=== PATIENT | female | born 1955 | race Caucasian/White ===

== ENCOUNTER 2017-03-11 22:43 | Emergency (ER) | payer MEDICARE, MEDICAID ==
[2013-06-24 10:59] VITALS: BMI 20.3
[~2017-03-11 22:43] MED LIST: ABILIFY10 MG PO; ADVAIR 250/501 DISK INH; COMBIVENT RESPIM4 GM INH; ESTRACE2 MG PO; KLONOPIN0.5 MG PO; NEURONTIN600 MG PO; NEXIUM40 MG PO; OGEN1.5 MG PO; SPIRIVA18 MCG INH; ZANAFLEX4 MG PO
[2017-03-11 23:31] LABS: BASOPHILS 0.2 % (0-2); EOSINOPHILS 2.6 % (0-7); HEMATOCRIT 37.2 % (36.0-48.0); HEMOGLOBIN 11.9 g/dL (12-16); IMMATURE GRANULOCYTES 0.2 % (0-5); LYMPHOCYTES 30.6 % (15-50); MCV 96.9 fL (80.0-100.0); MONOCYTES 8.5 % (2-11); NEUTROPHILS 57.9 % (40-80); PLATELET COUNT 127 10x3/uL (130-400); RBC 3.84 10x6/uL (4.00-5.40); RDW 14.4 % (11.5-14.5); WBC 5.8 10x3/uL (4.8-10.8)
[2017-03-11 23:44] LABS: ALBUMIN 2.9 g/dL (3.4-5.0); BILIRUBIN - TOTAL 0.56 mg/dL (0.2-1.3); CALCIUM 8.8 mg/dL (8.5-10.1); CARBON DIOXIDE 31.2 mmol/L (21.0-32.0); CREATININE - SERUM 1.1 mg/dL (0.6-1.3); POTASSIUM - SERUM 4.2 mmol/L (3.5-5.1); PROTEIN - SERUM 7.2 g/dL (6.4-8.2)
[2017-03-12 00:42] LABS: APPEARANCE TURBID (CLEAR); BACTERIA MANY /hpf (NONE SEEN); BILIRUBIN NEGATIVE (NEGATIVE); COLOR YELLOW (YELLOW); EPITHELIAL CELLS NSEEN /hpf (0-5); GLUCOSE NEGATIVE (NEGATIVE); KETONE NEGATIVE (NEGATIVE); LEUKOCYTE ESTERASE 2+ (NEGATIVE); NITRITE POSITIVE (NEGATIVE); PROTEIN TRACE mg/dL (NEGATIVE); RED CELLS - URINE 0-5 /hpf (0-5); SPECIFIC GRAVITY 1.005 (1.005-1.020); UROBILINOGEN NORMAL (NORMAL); WHITE CELLS - URINE 25-50 /hpf (0-5)
== END 2017-03-12 01:50 | disposition home or self-care (01) ==
LOC: D.ER 22:43
PROVIDERS: Emergency Medicine
DX: N39.0 Urinary tract infection, site not specified (principal); M54.16 Radiculopathy, lumbar region; M50.20 Other cervical disc displacement, unspecified cervical region; F32.9 Major depressive disorder, single episode, unspecified; F17.200 Nicotine dependence, unspecified, uncomplicated

== ENCOUNTER 2017-03-16 02:27 | Inpatient (IN) | payer MEDICARE, MEDICAID ==
[~2017-03-16] VITALS: Ht 175.3 cm; Wt 63.3 kg
--- NOTE | ~2017-03-16 | PN ---
PATIENT:ROBERTH MYERS MEDICAL RECORD: [id number] LOCATION:[facility] ADMISSION DATE: 03/16/17 PROGRESS NOTE DATE OF SERVICE: 03/20/2017 This is a summary of progress notes from 03/18/2017, 03/19/2017 and 03/20/2017. CHIEF COMPLAINT: Pain. SUBJECTIVE: Over the course of a 3 day weekend, the patient was complaining of abdominal pain. Her nasogastric tube came out. She initially refused to have it replaced. This morning, she elected to have it replaced. There was the aspiration of about 3.5-3.7 liters of feculent smelling liquid after the nasogastric tube had been replaced. She was having a lot of abdominal pain prior to replacement of the nasogastric tube and a lot of this has resolved. Her abdomen is still distended. It is tympanitic. There are multiple surgical scars present. The patient states that she has had a stoma in the past. Dr. Hartman has operated on her in the past as well. I asked if she would like to have Dr. Hartman as her primary surgeon during this hospitalization and she states that she will stay with Dr. Morfin. Palpation aggravates. Nothing alleviates. Symptoms are moderate intensity. It is crampy pain. This is a progress note addendum. For the typed portion of the progress note, please see the chart. This will include the past medical and surgical history, allergies, current medications as well as social history. REVIEW OF SYSTEMS: Positive for nausea, positive for abdominal pain, positive for dyspnea on exertion, positive for weakness, and positive for headache. Review of systems is negative other than as is described above. PHYSICAL EXAMINATION: GENERAL: The patient appears acutely ill. Also appears chronically ill. VITAL SIGNS: Reviewed. The entire physical examination was performed with the presence of a female nurse. HEENT: Head, bilateral temporal wasting. Ears are normal. NECK: Trachea is midline. CHEST: No intercostal retractions. PULMONARY: Mildly labored. No stridor. ABDOMEN: Mild diffuse tenderness, without peritonitis to percussion. This is generalized tenderness. There are multiple surgical scars present. EXTREMITIES: No peripheral cyanosis. INTEGUMENT: No rash, no ulcerations. PSYCHIATRIC: Anxious affect. NEUROLOGIC: Nonfocal, no lethargy. The patient answers questions appropriately, moves all extremities well. BACK: Mild thoracic kyphosis. LYMPHATIC: No lymphangitic streaking of the exposed extremities. IMPRESSION: Over the course of the weekend, the patient did better with the nasogastric tube than without a nasogastric tube. Her pain is now improved. I PROGRESS NOTE [id number] LOUIS,ROBERTH WADDELL have discussed this case in depth with Dr. Morfin. He is going to plan for diagnostic laparoscopy, adhesiolysis, possible exploratory laparotomy tomorrow. The risks, possible complications and alternatives to procedure were explained to the patient and her . They elect to proceed. TRANSINT:[id number] Voice Confirmation ID: [id number] DOCUMENT ID: [id number] SHAGUFTA BROOKE MD CC: [id number] DICTATION DATE: 03/20/171828 REGISTERED PUBLIC HEALTH NURSE: 03/21/17 0328 ADM IN [facility] [address] [id number]
[2017-03-16 03:47] LABS: BASOPHILS 0.2 % (0-2); EOSINOPHILS 1.4 % (0-7); HEMATOCRIT 42.6 % (36.0-48.0); HEMOGLOBIN 14.1 g/dL (12-16); IMMATURE GRANULOCYTES 0.5 % (0-5); LYMPHOCYTES 20.8 % (15-50); MCH 31.3 pg (26.0-34.0); MCHC 33.1 g/dL (31.0-37.0); MCV 94.5 fL (80.0-100.0); MEAN PLATELET VOLUME 9.5 fL (7.4-10.4); MONOCYTES 12.4 % (2-11); NEUTROPHILS 64.7 % (40-80); RBC 4.51 10x6/uL (4.00-5.40); RDW 14.5 % (11.5-14.5); WBC 9.5 10x3/uL (4.8-10.8)
[2017-03-16 03:48] LABS: PLATELET COUNT 230 10x3/uL (130-400)
[2017-03-16 04:01] LABS: ANION GAP 9.2 mmol/L (8-16); BILIRUBIN - TOTAL 0.87 mg/dL (0.2-1.3); CALCIUM 10.6 mg/dL (8.5-10.1); CARBON DIOXIDE 37.6 mmol/L (21.0-32.0); CREATININE - SERUM 1.4 mg/dL (0.6-1.3); MAGNESIUM - SERUM 1.6 mg/dL (1.8-2.4); POTASSIUM - SERUM 3.8 mmol/L (3.5-5.1); PROTEIN - SERUM 7.9 g/dL (6.4-8.2)
[2017-03-16 04:10] LABS: APPEARANCE HAZY (CLEAR); BILIRUBIN NEGATIVE (NEGATIVE); COLOR YELLOW (YELLOW); GLUCOSE NEGATIVE (NEGATIVE); KETONE NEGATIVE (NEGATIVE); LEUKOCYTE ESTERASE NEGATIVE (NEGATIVE); NITRITE NEGATIVE (NEGATIVE); PROTEIN NEGATIVE (NEGATIVE); SPECIFIC GRAVITY 1.025 (1.005-1.020); UROBILINOGEN NORMAL (NORMAL)
[2017-03-16 06:41] VITALS: BP 105/66; BMI 18.3
--- NOTE | 2017-03-16 07:20 | NUR ---
PT. SITTING UP IN CHAIR AT BEDSIDE. ALERT. COLOR PINK. TEMP 98.2(O). RESP-16 BPM, HR-78 BPM. PT HAS NO C/O AT THIS TIME.
[2017-03-16 07:50] VITALS: BP 104/54
--- NOTE | 2017-03-16 10:00 | NUR ---
PT LAYING IN BED AT THIS TIME. HAS NO SIGNS OF DISTRESS NOTED AT PERSENT TIME.
[2017-03-16 12:20] VITALS: BP 113/67
--- NOTE | 2017-03-16 12:30 | NUR ---
ROOM CHECK DONE. PT. LAYING IN BED WATCHING TV. HAS NO SIGNS OF DISTRESS NOTED AT THIS TIME.
--- NOTE | 2017-03-16 13:40 | NUR ---
LYING ON BACK WITH HEAD OF BED AT 35 DEGREES. CHECKED NG PLACEMENT. NO CHANGE IN PLACEMENT. STATES THAT SHE TRIED TO "BLOW HER NOSE" AND IT MIGHT HAVE MOVED. REMINDED PT TO TRY NOT TO BLOW HER NOSE. STATES UNDERSTANDING. STATES THAT HER ABDOMEN IS HURTING DOWN LOW. IS DUE FOR ROUNDS AND HAS BEEN MADE AWARE OF STATEMENT.
[2017-03-16] MEDS ORDERED: ELAVIL25 MG PO (13:52)
[2017-03-16] MEDS ORDERED: FLOMAX0.4 MG PO (13:54)
[2017-03-16] MEDS ORDERED: BENTYL10 MG PO (13:55)
[2017-03-16] MEDS ORDERED: SPIRIVA18 MCG INH (13:56)
[2017-03-16] MEDS ORDERED: BUSPIRONE HCL30 MG PO (13:58)
[2017-03-16] MEDS ORDERED: ZOFRAN4 MG PO (13:59)
[2017-03-16] MEDS ORDERED: ADVAIR 250/501 DISK INH (14:00)
[2017-03-16] MEDS ORDERED: METOPROLOL TART25 MG PO (14:02)
[2017-03-16] MEDS ORDERED: ESTRACE2 MG PO (14:03)
[2017-03-16] MEDS ORDERED: CYMBALTA60 MG PO (14:04)
[2017-03-16] MEDS ORDERED: DEXILANT60 MG PO (14:05)
[2017-03-16] MEDS ORDERED: VITAMIN D5000 UNIT PO (14:06)
[2017-03-16] MEDS ORDERED: HYDROCODONE-APA1 TAB PO (14:08)
[2017-03-16 14:52] VITALS: Ht 175.3 cm; Wt 63.3 kg
--- NOTE | 2017-03-16 16:01 | NUR ---
Patient Name: ROBERTH MYERS Admission Status: ER Accout number: [id number] Admission Date: 03-16-2017 : 1955 Admission Diagnosis: Attending: TODD Current LOS: 1 Anticipated DC Date: 03-20-2017 Planned Disposition: Primary Insurance: [facility] Discharge Planning Comments: CM met with patient and boyfriend, Gonsalo Ignacio, to assess discharge planning/needs. Patient and boyfriend stated discharge plan is to return home. States that her home environment is safe. Her discharge transportation is pending at this time secondary to patient being dependent on public transport ([employer] bus or [employer] bus), she did state that she may be able to call a friend. She denies any other discharge planning needs at this time, however; patient is requiring the use of oxygen during this stay and may require walk test prior to discharge. CM will continue to follow and assist as needed with discharge planning/needs. Rehanger: Ashley Art Is the patient Alert and Oriented? Yes * How many steps to enter\exit or inside your home? 0 * PCP Dr Baljinder Curtis, [place] * Pharmacy [facility]: [place] * Preadmission Environment Home Alone * ADLs Independent * Equipment None * List name and contact numbers for known caregivers / representatives who currently or will assist patient after discharge: nick Damian, * Community resources currently utilized None * Please name any agencies selected above. Use to have [facility] in the past for ADL help * Additional services required to return to the preadmission environment? No * Can the patient safely return to the preadmission environment? Yes * Has this patient been hospitalized within the prior 30 days at any hospital? No
--- NOTE | 2017-03-16 16:16 | NUR ---
C/O PAIN TO MID ABD AND LOWER BACK. IV PATENT TO LT FOREARM
[2017-03-16 16:40] VITALS: BP 109/62
--- NOTE | 2017-03-16 17:28 | NUR ---
PT RESTING WITH EYES CLOSED, RESPIRATIONS EASY AND UNLABORED. AWAKENS EASILLY WHEN SPOKEN TO. STATES THAT SHE IS "GOING TO GET SOME SLEEP FOR AWHILE". STATES NO FURTHER NEEDS AT THIS TIME. S/R UP X 2, BED IN LOWEST POSITION, CALL LIGHT AND PHONE WITHIN REACH.
--- NOTE | 2017-03-16 18:18 | NUR ---
RADIOLOGY BROUGHT PREPARED CONTRAST TO UNIT. HAVE GIVEN 140 ML AND PT HAS BEEN STATING SINCE 100 ML THAT SHE WAS VERY FULL. CALL IN TO RADIOLOGY FOR FURTHER INSTRUCTIONS. PT "I CANT TAKE ANY MORE OF THAT"
--- NOTE | 2017-03-16 19:15 | NUR ---
PT TO RADIOLOGY VIA
--- NOTE | 2017-03-16 19:29 | NUR ---
PT BACK TO ROOM FROM RADIOLOGY, RESP TO ROOM FOR TREATMENT
--- NOTE | 2017-03-16 19:51 | NUR ---
MAG GARCIA IVPB PER MD ORDERS, SEE EMAR
[2017-03-16 20:15] VITALS: BP 104/58
--- NOTE | 2017-03-16 20:15 | NUR ---
VSS. COMPLAINING OF ABD AND LOWER BACK PAIN. FELL ASLEEP AFTER COMPLAINT. EXPLAINED TO BF AT BEDSIDE I WILL CHECK ON MEDS. BF CONCERNED SHE HASNT ATE IN 3 DAYS EXPLAINED THAT THEY HAVE TO LET HER BOWEL REST IN ORDER TO CLEAR THE OBSTRUCTION OR WHATEVER IS CAUSING THE PAIN. EXPLAINED THAT THE NG TUBE IS TO KEEP ANYTHING FROM GOING DOWN AND THAT HER ELECTROLYTES ARE MONITORED VIA BLOOD WORK.
--- NOTE | 2017-03-16 20:58 | NUR ---
ASSESSMENT PER FLOW SHEET, IV IN LEFT AC INTACT WITH NO REDNESS OR EDEMA INFUSING D5LR AT 100 ML/HR, PT DENIES FLATUS AND NO BM, BETHEA CATH INTACT, DRAINING DARK YELLOW URINE, SCD'S NOTED NOT TO BE ON, SCD'S APPLIED AND WORKING PROPERLY, NGT OFF AT THIS TIME DUE TO ADM OF MEDS, PT INST TO TAKE MEDS WITH A SMALL SIP OF WATER, PT VERBALIZES UNDERSTANDING, PT DENIES NEEDS, EXTRA PILLOW PROVIDED TO S/O
--- NOTE | 2017-03-16 21:30 | NUR ---
PT RESTING WITH EYES CLOSED, RESP QUIET, NO DISTRESS NOTED, LEFT UNDISTURBED AT THIS TIME, S/O ASLEEP IN RECLINER
[2017-03-16 23:16] VITALS: BP 104/51
--- NOTE | 2017-03-16 23:16 | NUR ---
PT RESTING WITH EYES CLOSED, AROUSES TO SOFT VERBAL STIMULATION, VS OBTAINED, ADM REGLAN AND DILAUDID SIVP PER MD ORDERS, SEE EMAR, PT DENIES NEEDS, S/O ASLEEP IN RECLINER
--- NOTE | 2017-03-17 00:30 | NUR ---
PT RESTING WITH EYES CLOSED, RESP QUIET, NO DISTRESS NOTED, LEFT UNDISTURBED AT THIS TIME, S/O ASLEEP IN RECLINER
--- NOTE | 2017-03-17 01:45 | NUR ---
NURYS AGUILAR RN FROM ICU TO ROOM, TUBING CHANGED ON NGT
--- NOTE | 2017-03-17 02:00 | NUR ---
PT C/O ABD PAIN, INFORMED PT THAT I WAS TOO SOON FOR PAIN MED, PT VERBALIZES UNDERSTANDING, REPOSITIONED PT TO RIGHT SIDE WITH PILLOW BEHIND BACK, IN FROM OF ABD, AND BETWEEN KNEES, PT DENIES FURTHER NEEDS, S/O AT SIDE
[2017-03-17 04:10] VITALS: BP 110/60
--- NOTE | 2017-03-17 04:10 | NUR ---
PT RESTING WITH EYES CLOSED, AROUSES TO SOFT VERBAL STIMULATION, VS OBTAINED, I&O'S COLLECTED, SCD'S CONTINUE ON AND WORKING PROPERLY, NEW BG OF NS HUNG INFUSING VIA PUMP AT 125 ML/HR, I&O'S COLLECTED, ADM PAIN MED PER MD ORDERS, SEE EMAR, PT DENIES FURTHER NEEDS, S/O AT BEDSIDE
--- NOTE | 2017-03-17 05:01 | NUR ---
5MG/1ML REGLAN GIVEN SIVP PER ORDERS. MN AROUSES TO LIGHT VERBAL STIMULI. FAMILY SLEEPING ON BEDSIDE CHAIR. PT DENIES PAIN OR NEEDS AT THIS TIME.
--- NOTE | 2017-03-17 06:40 | NUR ---
PT RESTING WITH EYES CLOSED, RESP QUIET, NO DISTRESS NOTED, LEFT UNDISTURBED AT THIS TIME
--- NOTE | 2017-03-17 07:00 | NUR ---
SHIFT REPORT TO DAY SHIFT
[2017-03-17 07:30] VITALS: BP 95/54
--- NOTE | 2017-03-17 07:32 | NUR ---
PT LYING IN BED WITH IN CHAIR AT BEDSIDE. RESTING WITH EYES CLOSED. EVEN BUT SHALLOW RESPIRATIONS.ABDOMEN VISUALLY DISTENDED STATES THAT IT IS HURTING AND INDICATES LLQ. ASKS FOR ICE CHIPS BUT IS NPO.
[2017-03-17 08:12] LABS: BASOPHILS 0.2 % (0-2); EOSINOPHILS 1.9 % (0-7); HEMATOCRIT 35.4 % (36.0-48.0); HEMOGLOBIN 11.4 g/dL (12-16); IMMATURE GRANULOCYTES 0.4 % (0-5); LYMPHOCYTES 26.6 % (15-50); MCH 30.7 pg (26.0-34.0); MCHC 32.2 g/dL (31.0-37.0); MCV 95.4 fL (80.0-100.0); MEAN PLATELET VOLUME 9.4 fL (7.4-10.4); NEUTROPHILS 53.9 % (40-80); PLATELET COUNT 140 10x3/uL (130-400); RBC 3.71 10x6/uL (4.00-5.40); RDW 14.4 % (11.5-14.5); WBC 4.7 10x3/uL (4.8-10.8)
[2017-03-17 08:28] LABS: INR 0.94 (0.85-1.17); PROTIME 12.4 SECONDS (11.6-15.0)
[2017-03-17 08:43] LABS: ALBUMIN 2.3 g/dL (3.4-5.0); ANION GAP 5.9 mmol/L (8-16); BILIRUBIN - TOTAL 0.68 mg/dL (0.2-1.3); CALCIUM 8.4 mg/dL (8.5-10.1); CARBON DIOXIDE 34.6 mmol/L (21.0-32.0); MAGNESIUM - SERUM 1.6 mg/dL (1.8-2.4); PHOSPHOROUS 3.3 mg/dL (2.5-4.9); POTASSIUM - SERUM 3.5 mmol/L (3.5-5.1)
[2017-03-17 08:55] LABS: PROTEIN - SERUM 5.8 g/dL (6.4-8.2)
[2017-03-17 12:55] VITALS: BP 88/63
--- NOTE | 2017-03-17 12:55 | NUR ---
BP 78/31 TO 88/63. O2 SAT 88% ON 2 L/MIN NASAL CANNULA. PATIENT DROWSEY BUT ROUSES WITH VERBAL STIMULI. INSTRUCTED TO DEEP BREATH AND COUGH. REPOSITIONED. O2 SAT RISES TO 92 TO 93% AFTER 2 MIN OF DEEP BREATHING AND COUGHING. SPUTUM IS CLEAR TO PALE YELLOW AND THICK. UOP APPROX 30ML/HR. DR BROOKS CARAMEL MAKER BRINA NOTIFIED OF SAME AND REQUESTED MANUAL BP. SKIN WARM DRY AND PALE.
--- NOTE | 2017-03-17 13:00 | NUR ---
DR BROOKS AT BEDSIDE. SAID TO STOP METOPROLOL AND KLONOPIN, TO ADVANCE NGT 4CM INDICATED BY ABD XRAY TODAY AND TO INCREASE IVF TO 125ML/HR. IVF INCREASED TO 125ML/HR.
[2017-03-17 13:05] VITALS: BP 104/80
--- NOTE | 2017-03-17 13:16 | NUR ---
DR. BROOKS TO ROOM.
--- NOTE | 2017-03-17 13:25 | NUR ---
NGT ADVANCED 4 CM AND SECURED WITH NEW SECUREMENT DEVICE AFTER MASTISOL APPLIED TO NOSE. IMMEDIATE INCREASE IN NGT OUTPUT NOTED.
--- NOTE | 2017-03-17 13:30 | NUR ---
SURGEON DR MUÑOZ AT BEDSIDE. REQUESTED PATIENT GET OUT OF BED INTO CHAIR. PATIENT ASSISTED TO GET OUT OF BED INTO CHAIR. SPONGE BATH GIVEN. LINENS CHANGED. RHODA WELL THEN RETURNED TO BED AFTER 15 MIN PER PATIENT REQUEST STATING SHE FEELS BAD.
--- NOTE | 2017-03-17 16:10 | NUR ---
INITIAL DOSES TPN AND LIPIDS BEGUN
--- NOTE | 2017-03-17 16:59 | NUR ---
CONTACTED MLP HAYES CONNOR TO ASK IF BLOOD SUGARS NEEDED FOR PATIENT ON TPN; NO NEW ORDERS GIVEN STATING CLINIMIX NOT CONCENTRATED TPN SO BLOOD SUGARS NOT NEEDED.
--- NOTE | 2017-03-17 17:17 | NUR ---
NEUROTIN PROVIDED AVAILABLE. SWALLOWED WITHOUT DIFFICULTY. SUCTION TURNED OFF FOR ONE HOUR TO ALLOW FOR DIGESTION OF MEDICATION.
[2017-03-17 19:45] VITALS: BP 90/51
--- NOTE | 2017-03-17 20:00 | NUR ---
REC'D PT IN BED ON LEFT SIDE. NG TUBE LYING BESIDE PT. RESP EVEN AND UNLABORED. LUNGS CLEAR BILATERALLY. ABDOMEN DISTENDED. HYPOACTIVE BOWEL SOUNDS NOTED. BETHEA CATH IN PLACE DRAINING CLEAR YELLOW URINE. S/O AT BEDSIDE. BED LOW. CALL LIGHT IN REACH. PT AWAKENS WITH VERBAL STIMULI AND STATES SHE DOES NOT WANT TUBE REPLACED. INFORMED THAT DR. BROOKE WOULD BE NOTIFIED. SIDE RAILS UP X2. JENA KOO
--- NOTE | 2017-03-17 20:15 | NUR ---
DR. BROOKE NOTIFIED PT HAS PULLED OUT NG TUBE AND DOES NOT WANT IT REPLACED. STATED OK TO LEAVE OUT BUT KEEP PT NPO EXCEPT MEDS. FAMILY INFORMED. JENA KOO
--- NOTE | 2017-03-17 21:54 | NUR ---
PT C/O PAIN 06/01 TO ABDOMEN. DILAUDID 0.5MG ADMINISTERED SIVP. PM MEDICATIONS ADMINISTERED WITH SMALL SIP OF WATER. S/O PRESENT IN ROOM. DENIES FURTHER NEEDS AT THIS TIME. JENA KOO
--- NOTE | 2017-03-17 23:26 | NUR ---
REGLAN 5MG ADMINISTERED SIVP. PT RESTING WITH EYES CLOSED. AWAKENS EASILY WITH VERBAL STIMULI. PT REPORTS PAIN IS A LITTLE BETTER. JENA KOO
[2017-03-18 00:06] VITALS: BP 94/49
--- NOTE | 2017-03-18 01:02 | NUR ---
IV CANNULA OUT OF CURRENT SITE TO LAC. IV RESITED TO RIGHT FOREARM WITH 20G X2 ATTEMPTS. BLOOD RETURN NOTED AND FLUSHED WITH NS EASILY. CURRENT INFUSION OF CLINIMIX RESUMED AT 100CC/HR. PT DENIES NEEDS/PAIN AT THIS TIME. JENA KOO
--- NOTE | 2017-03-18 02:37 | NUR ---
NEW BAG OF CLINIMIX UP AT 100CC/HR TO RIGHT FOREARM. PT RESTING WITH EYES CLOSED ON HER LEFT SIDE. RESP EVEN AND UNLABORED. JENA KOO
[2017-03-18 04:10] VITALS: BP 136/89
[2017-03-18 06:49] LABS: BASOPHILS 0.2 % (0-2); EOSINOPHILS 0.2 % (0-7); HEMATOCRIT 33.9 % (36.0-48.0); HEMOGLOBIN 10.8 g/dL (12-16); LYMPHOCYTES 20.3 % (15-50); MCH 30.5 pg (26.0-34.0); MCHC 31.9 g/dL (31.0-37.0); MCV 95.8 fL (80.0-100.0); MEAN PLATELET VOLUME 9.7 fL (7.4-10.4); MONOCYTES 15.4 % (2-11); NEUTROPHILS 62.9 % (40-80); PLATELET COUNT 125 10x3/uL (130-400); RBC 3.54 10x6/uL (4.00-5.40); RDW 14.1 % (11.5-14.5)
[2017-03-18 07:08] LABS: ALBUMIN 2.2 g/dL (3.4-5.0); ALKALINE PHOSPHATASE 55 U/L (46-116); ALT (SGPT) 48 U/L (10-68); CALC OSMOLALITY 277 mosm/kg (275-300); CALCIUM 8.7 mg/dL (8.5-10.1); CARBON DIOXIDE 32.8 mmol/L (21.0-32.0); CHLORIDE - SERUM 100 mmol/L (98-107); CREATININE - SERUM 0.8 mg/dL (0.6-1.3); GLUCOSE 134 mg/dL (74-106); POTASSIUM - SERUM 3.8 mmol/L (3.5-5.1); SODIUM 137 mmol/L (136-145); UREA NITROGEN 17 mg/dL (7-18); eGFR NON AFRICAN AMERICAN 77 mL/min (90-120)
--- NOTE | 2017-03-18 07:30 | NUR ---
PATIENT IS RESTING QUIETLY WITH EYES CLOSED. MALE VISITOR ASLEEP IN THE BEDSIDE CHAIR.
--- NOTE | 2017-03-18 09:30 | NUR ---
PATIENT TOOK MEDICATIONS ORALLY WITH A DRINK OF WATER. SHE DENIES NAUSEA BUT C/O HER STOMACH ACHING. ORAL NORCO GIVEN. PATIENT IS HYPOTENSIVE. BOYFRIEND REMAINS AT THE BEDISDE. MONITORING.
[2017-03-18 10:10] VITALS: BP 93/50
--- NOTE | 2017-03-18 11:50 | NUR ---
PATIENT C/O UNRELIEVED ABDOMINAL PAIN. IV DILAUDID GIVEN.
--- NOTE | 2017-03-18 12:40 | NUR ---
PATIENT'S LINENS CHANGED WHILE SHE IS AMBULATING OUT IN THE HALLWAY WITH HER BOYFRIEND. SHE STATES THAT DILAUDID DID HELP HER PAIN CINSIDERSBLY, NOW RATING THE PAIN A 5. SHE IS AMBULATING WITHOUT EVIDENCE OR UNSTEADINESS. ENCOURAGED HER TO GO ON ANOTHER WALK LATER THIS AFTERNOON TO STIMUATE SOME BOWEL MOVEMENTS. PATIENT VERBALIZED UNDERSTANDING.
--- NOTE | 2017-03-18 13:40 | NUR ---
SECURITY CALLED TO CONY'S ROOM. HER SON HAS JUST ARRIVED AND HER BOYFRIENT IS ANGRY THAT HE IS HERE. THE BOYFRIEND WANTS THE SON TO LEAVE AND THEIR CONVERSATION BECAME LOUD. MERCYNBA STATES THAT SHE WANTS TO VISIT WITH HER SON AND FOR HIM TO THEN LEAVE SO THAT SHE CAN REST. INFORMED BOYFRIEND THAT HE WAS GOING TO HAVE TO WAIT IN THE HALLWAY UNTIL THE SON HAS VISITED. BOYFRIEND AGREED.
--- NOTE | 2017-03-18 14:01 | NUR ---
PATIENT VISITING IN WITH HER SON. HER BOYFRIEND IS OUT PACING IN THE HALLWAY. HE HAS GONE INTO HER ROOM SEVERAL TIMES FOR A SHORT PERIOD TO TALK A MINUTE THEN COMES BACK OUT. HIS BODY LANGUAGE STATED THAT HE IS VERY ANGRY. HE DENIES NEEDS.
--- NOTE | 2017-03-18 18:22 | NUR ---
PATIENT GIVEN PAIN MEDICATION FOR C/O ABDOMINAL PAIN THAT COMES IN WAVES AND SEEMS TO BE MOVING AROUND IN HER BELLY. SHE IS STILL NOT PASSING GAS THOUGH SHE DOES BELCH.
[2017-03-18 19:35] VITALS: BP 100/56
--- NOTE | 2017-03-18 19:35 | NUR ---
ASSESSMENT PER FLOW SHEET, VS OBTAINED, IV IN RIGHT FA INTACT WITH NO REDNESS OR EDEMA INFUSING VIA PUMP CLINIMIX AT 100ML/HR, PT REPORTS FLATUS, BETHEA CATH INTACT DRAINING DARK YELLOW URINE, PT INST ON AND VERBALIZES UNDERSTANDING TO USE CALL LIGHT IF NEEDING TO GET UP FOR BM, SCD'S ON AND WORKING PROPERLY, PT REQUESTED SINK LIGHT OFF, PT DENIES FURTHER NEEDS, S/O AT BEDSIDE
--- NOTE | 2017-03-18 20:09 | NUR ---
RESP IN ROOM FOR TREATMENT
--- NOTE | 2017-03-18 20:35 | NUR ---
PT RESTING, DENIES NEEDS, S/O REQUESTED AND PROVIDED CRACKERS
--- NOTE | 2017-03-18 21:24 | NUR ---
PT RESTING, AWAKE, ADM 2100 MEDS PO WITH SMALL SIP OF WATER PER MD ORDERS, SEE EMAR, PT DENIES NEEDS OR PAIN AT THIS TIME, S/O AT BEDSIDE
--- NOTE | 2017-03-18 22:04 | NUR ---
IV BEEPING, VTBI CHANGED, BAG STILL HAS ABOUT 70 MLS TO BE INFUSED, PT DENIES NEEDS, S/O ASLEEP IN RECLINER
--- NOTE | 2017-03-18 22:28 | NUR ---
PT MERCHANDISING LEAD LIGHT, PT C/O NAUSEA, ABD AND BACK PAIN, ADM REGLAN, ZOFRAN, AND DILAUDID SIVP PER MD ORDERS, SEE EMAR, PT DENIES FURTHER NEEDS, S/O ASLEEP IN RECLINER
[2017-03-18 23:10] VITALS: BP 111/67
--- NOTE | 2017-03-18 23:10 | NUR ---
IV BEEPING, SHOWS BATTERY LOW, MACHINE PLUGGED IN, VS OBTAINED, PT REPORTS "MY PAIN IS BETTER AND NO, I'M NOT FEELING NAUSEATED ANYMORE", PT DENIES NEEDS
--- NOTE | 2017-03-19 00:11 | NUR ---
PT AWAKE, DENIES NEEDS, REPORTS "PAIN IS STARTING TO COME BACK ALITTLE", INFORMED PT THAT I WILL ADM PAIN MED AGAIN WHEN DUE, PT VERBALIZES UNDERSTANDING, S/O ASLEEP IN RECLINER
--- NOTE | 2017-03-19 01:59 | NUR ---
PT AWAKE, C/O ABD PAIN, PT REQUESTED NORCO, ADM NORCO PO PER MD ORDERS, SEE EMAR
--- NOTE | 2017-03-19 02:30 | NUR ---
PT AWAKE, DENIES NEEDS AT THIS TIME, S/O ASLEEP IN RECLINER
--- NOTE | 2017-03-19 02:51 | NUR ---
RESP TO ROOM FOR TREATMENT, PT REFUSED TREATMENT, REPORTS VOMITING A LITTLE, THIS RN TO ROOM, PT VOMITED APPROX 50 CC OF GREEN BILE EMESIS, PT REPORTS FEELING A LITTLE BETTER, ANOTHER BLUE EMESIS BAG PROVIDED
[2017-03-19 04:30] VITALS: BP 111/61
--- NOTE | 2017-03-19 04:30 | NUR ---
PT AWAKE, ADM ZOFRAN AND REGAL SIVP PER MD ORDERS, SEE EMAR, PT VOMITED APPROX 20 CC OF GREEN BILE EMESIS, ANOTHER BLUE EMESIS BAG PROVIDED, PT STATES "HAHA, MY STOMACH IS GROWLING AFTER THAT", VS OBTAINED, I&O'S COLLECTED, PT DNEIES NEEDS, S/O ASLEEP IN RECLINER
--- NOTE | 2017-03-19 06:11 | NUR ---
PT RESTING WITH EYES CLOSED, RESP QUIET, NO DISTRESS NOTED, LEFT UNDISTURBED AT THIS TIME
[2017-03-19 07:41] LABS: BASOPHILS 0.2 % (0-2); EOSINOPHILS 1.5 % (0-7); HEMOGLOBIN 11.5 g/dL (12-16); IMMATURE GRANULOCYTES 0.6 % (0-5); LYMPHOCYTES 27.8 % (15-50); MCHC 31.9 g/dL (31.0-37.0); MEAN PLATELET VOLUME 9.4 fL (7.4-10.4); MONOCYTES 16.5 % (2-11); NEUTROPHILS 53.4 % (40-80); PLATELET COUNT 121 10x3/uL (130-400); RBC 3.71 10x6/uL (4.00-5.40); RDW 14.4 % (11.5-14.5)
[2017-03-19 07:42] LABS: WBC 5.2 10x3/uL (4.8-10.8)
[2017-03-19 07:53] LABS: ALBUMIN 2.3 g/dL (3.4-5.0); ALKALINE PHOSPHATASE 53 U/L (46-116); ALT (SGPT) 40 U/L (10-68); BILIRUBIN - TOTAL 0.34 mg/dL (0.2-1.3); CALC OSMOLALITY 276 mosm/kg (275-300); CALCIUM 8.9 mg/dL (8.5-10.1); CARBON DIOXIDE 31.5 mmol/L (21.0-32.0); CHLORIDE - SERUM 101 mmol/L (98-107); CREATININE - SERUM 0.7 mg/dL (0.6-1.3); GLUCOSE 121 mg/dL (74-106); POTASSIUM - SERUM 3.8 mmol/L (3.5-5.1); PROTEIN - SERUM 6.4 g/dL (6.4-8.2); SODIUM 136 mmol/L (136-145); eGFR NON AFRICAN AMERICAN 90 mL/min (90-120)
[2017-03-19 07:54] LABS: UREA NITROGEN 24 mg/dL (7-18)
--- NOTE | 2017-03-19 08:10 | NUR ---
PATIENT RESTING IN HER BED, EYES CLOSED, TURNED ONTO HER LEFT SIDE. SHE AWOKE EASILY. STATES THAT HER BELLY IS SORE AND THAT SHE 'S VOMITED A COUPLE OF TIMES DURING THE NIGHT. SHE IS CURRENTLY WITHOUT NAUSEA. SHE FEELS THAT SHE NEEDS TO BE TAKING HER DEXOLANT. SHE HAS BEEN ON THAT MEDICATION FOR YEARS. HER CLINIMAX IS INFUSING PER ORDERS TO [facility] RIGHT FA IV. HER O2 IS RUNNING AT 3LPM PER ME. URINE PATENT TO BETHEA CATHETER.
--- NOTE | 2017-03-19 08:30 | NUR ---
PATIENT OFF THE UNIT TO XRAY FOR A SMALL BOWEL FOLLOW THROUGH. LINENS CHANGED. BOYFRIEND GONE HOME. HOUSEKEEPING CALLED TO CLEAN HER ROOM AND DEODORIZE.
[2017-03-19 10:30] VITALS: BP 109/70
--- NOTE | 2017-03-19 10:40 | NUR ---
PATIENT RETURNED TO THE UNIT ACCOMPANIED BY JANA BRAY. HE STATES THAT SHE IS TO HAVE ANOTHER XRAY IN AN HOUR AND A HALF FOR THE SBFT. HE ALSO REPORTS THAT SHE VOMITED SOME OF THE CONTRAST WHILE IN HIS DEPARTMENT. CURRENTLY SHE IS RATING HER ABDOMINAL PAIN A 10/10. ORDERS RECEIVED TO CONTINUED THE DILAUDID 0.5MG Q4 HOURS LIKE SHE HAD IT PRESCRIBED BEFORE. SHE REQUESTS ICE CHIPS BUT STATES THAT SHE WOULD LIKELY THROW UP HER MEDICATIONS IF SHE TRIED TO DRINK THEM WITH WATER. SHE ASKS ABOUT HER DEXOLANT. EXPLAINED THAT SHE IS GETTING A PPI VIA IV. SHE VOICED UNDERSTANDING. BOYFRIEND AT THE BEDSIDE AND ATTENTIVE.
--- NOTE | 2017-03-19 11:30 | NUR ---
PATIENT CONTINUES TO HAVE ABDOMINAL DISCOMFORT DESPITE THE IV MEDICAITONS.
--- NOTE | 2017-03-19 11:50 | NUR ---
DISCUSSED PATIENT CARE WITH DR. BROOKS. ORDERS RECEIVED TO REINSERT THE NGT IF THE PATIENT BEGINS TO VOMIT AGAIN. WHEN ENTERING HER ROOM SHE WAS SPITTING INTO AN EMESIS BAG. INFORMED HER THAT WE NEEDED TO REINSERT THE NGT. SHE AGREED. WHILE GATHERING SUPPLIES, JANA INMAN ARRIVED TO TAKE AN IMAGE FOR THE SBFT THAT IS UNDER WAY. HE REQUESTED THAT I WAIT TO HOOK THE NGT TO SUCTION FOR NOW TO ALLOW THE CONTRAST TO CONTINUE WORKING ITS WAY DOWN. THE PATIENT FEELS THAT SHE IS VOMITING BECAUSE SHE DRANK THE CONTRAST IN THE FIRST PLACE. AWAITING CALL BACK FROM [facility] FOR INSTRUCTIONS. HE IS GOING TO CONFER WITH THE RADIOLOGIST.
--- NOTE | 2017-03-19 12:20 | NUR ---
CALL RECEIVED FROM KATARINA IN [facility]. HE STATES HTAT DR. PELAEZ WANTS AN XRAY IN 3 HOURS AND TO REFRAIN FROM THE NGT FOR NOW. EXPECT DR. BROOKS TO THE FLOOR BEFORE THEN. INFORMED PATIENT. SHE WANTS TO REST FOR NOW. SHE DENIES NAUSEA AT THIS TIME. C/O BELLY BLOAT HURTING.
--- NOTE | 2017-03-19 16:51 | NUR ---
call placed to xray. RADIOLOGIST WANTS TO HAVE ANOTHER FILM TAKEN IN 3 HOURS. THE CONTRAST STILL HASN'T MADE IT THROUGH THE SMALL BOWELS. PATIENT REMAINS NAUSEATED, VOMITED 150CC OF GREEN LIQUID EMESIS.
--- NOTE | 2017-03-19 17:59 | NUR ---
PATIENT GIVEN ZOFRAN FOR CONTINUED NAUSEA AND DILAUDID FOR C/O PAIN THAT SHE RATES A 9. HER HR IS 116, SINUS TACH PER TELEMETRY.
--- NOTE | 2017-03-19 18:08 | NUR ---
REPORTED THE PATIENT'S URINARY OP TO DR. BROOKS. NEW ORDERS RECEIVED TO ADD NS INFUSION AT 5050CC.
[2017-03-19 19:10] VITALS: BP 123/76
--- NOTE | 2017-03-19 19:10 | NUR ---
ASSESSMENT PER FLOW SHEET, VS OBTAINED, IV IN RIGHT FA INTACT WITH NO REDNESS OR EDEMA INFUSING VIA PUMP NS AT 50MLR/HR, CLINIMIX AT 100ML/HR, AND LIPIDS AT 31 ML/HR PER MD ORDERS, SEE EMAR, PT REPORTS FLATUS, NO BM THOUGH, BETHEA CATH INTACT DRAINING DARK YELLOW URINE, PT DENIES PAIN, REPORTS SLIGHT NAUSEA, POC DISCUSSED WITH PT, PT VERBALIZES UNDERSTANDING, SCD'S ON AND WORKING PROPERLY
--- NOTE | 2017-03-19 19:20 | NUR ---
DR BROOKE TO ROOM FOR EVALUATION, DR BROOKE WILL PUT ORDERS IN
--- NOTE | 2017-03-19 20:15 | NUR ---
PT RESTING, VOMITED 50 MLS OF YELLOWISH GREEN LIQUID EMESIS, PT STATES "I'VE DECIDED THAT I DON'T WANT THAT TUBE", TALKED TO PT ABOUT THE NECESSITY OF IT, BUT PT STILL REFUSES AT THIS TIME, ROOM CLEANED UP, TRASH REMOVED
--- NOTE | 2017-03-19 21:00 | NUR ---
NAUN FROM RADIOLOGY CALLED, REPORTS CONTRAST NOT MOVING, WILL CONTINUE STUDY IN AM OR CAN TERMINATE STUDY DEPENDING ON WHAT DR BROOKE WANTS, WILL DUE BETWEEN 6-7 AM AND THEN CAN READ STUDY AT THAT TIME, I INFORMED HIM THAT I WILL CONTACT DR BROOKE
--- NOTE | 2017-03-19 21:10 | NUR ---
DR MENDY HOOK
--- NOTE | 2017-03-19 21:15 | NUR ---
DR BROOKE CALLS UNIT, REPORT OF WHAT NAUN FROM RADIOLOGY SAID, ORDER TO CHANGE ZOFRAN FROM Q6H PRN TO Q4H PRN, PT'S REFUSAL TO HAVE NGT AT THIS TIME, ORDERS TO CHANGE ZOFRAN, CAN WAIT TILL AM TO CONTINUE STUDY, BUT IF PT CHANGES HER MIND ABOUT THE NGT, GO AHEAD AND INSERT IT AND DO A KUB IN AM, I INFORMED HIM THAT ONE WAS ALREADY ORDERED
--- NOTE | 2017-03-19 21:30 | NUR ---
EMPTIED 230 MLS OF YELLOWISH, GREENISH, BROWNISH LIQUIDY EMESIS FROM BASIN, INFORMED PT THAT I WILL ADM SAMMY, PT VERBALIZES UNDERSTANDING, S/O AT BEDSIDE
--- NOTE | 2017-03-19 21:44 | NUR ---
ADM CHRISTIANSON AND CELESTE DUFFY PER MD ORDERS, SEE EMAR, PT DENIES FURTHER NEEDS, SCD'S CONTINUE ON AND WORKING PROPERLY, S/O AT BEDSIDE
--- NOTE | 2017-03-19 22:26 | NUR ---
IV BEEPING, ADM REGLAN FLAKOP PER MD ORDERS, NEW BAG OF CLINIMIX HUNG IV INFUSING VIA PUMP AT 100ML/HR, EMPTIED 75 MLS OF BROWNISH LIQUIDY EMESIS FROM BASIN, ENC PT TO HAVE NGT PLACED, PT CONTINUES TO REFUSE, S/O AT BEDSIDE, DENIES NEEDS AT THIS TIME
[2017-03-20] VITALS: BP 123/72
--- NOTE | 2017-03-20 | NUR ---
PT AWAKE, VS OBTAINED, EMPTIED 75 MLS OF BROWNISH LIQUIDY EMESIS, PT REPORTS GETTING UP TO BR TO TRY AND HAVE A BM, NO SUCCESS, SCD'S PLACED BACK ON AND WORKING PROPERLY, CHANGED TOP SHEET AND BLANKET, PT PROVIDED CUP OF WATER TO WASH OUT MOUTH, PT STATES "THANK YOU, I NEEDED TO DO THIS", VS OBTAINED, PT DENIES FURTHER NEEDS, S/O IN HALLWAY
--- NOTE | 2017-03-20 01:03 | NUR ---
PT RESTING WITH EYES CLOSED, AROUSES TO SOFT VERBAL STIMULATION, LIPIDS FINISHED INFUSING, PORT FLUSHED WITH NO DIFFICULTY, EMPTIED 100 MLS OF BROWNISH LIQUIDY EMESIS FROM BASIN, PT CONTINUES TO REFUSE NGT, PT DENIES NEEDS AT THIS TIME, S/O ASLEEP IN RECLINER
--- NOTE | 2017-03-20 02:08 | NUR ---
PT'S BREATHING TREATMENT COMPLETE. RESPIRATORY OFF UNIT AT THIS TIME.
[2017-03-20 03:30] VITALS: BP 133/74
--- NOTE | 2017-03-20 03:30 | NUR ---
PT AWAKE, VS OBTAINED, PT REPORTS ABD PAIN, ENC NGT, PT AGREES, I&O'S COLLECTED, INFORMED PT THAT I WILL HAVE SOMEONE COME PLACE THE TUBE AND ADM PAIN AND NAUSEA MED, PT VERBALIZES UNDERSTANDING
--- NOTE | 2017-03-20 03:36 | NUR ---
TRISTEN ELIAS RN, SUPERINTENDENT HORTICULTURE NOTIFIED FOR NGT PLACEMENT
--- NOTE | 2017-03-20 03:40 | NUR ---
ADM DILAUDID AND ZOFRAN SIVP PER MD ORDERS, SEE EMAR
--- NOTE | 2017-03-20 04:00 | NUR ---
EMPTIED 400 MLS OF BROWNISH LIQUIDY EMESIS FROM BASIN, EKG LEADS REPLACED, CLEAN BEDDING APPLIED, SCD'S CONTINUE AND WORKING PROPERLY
--- NOTE | 2017-03-20 04:45 | NUR ---
SULEIMAN BURGOS RN, FROM ICU TO ROOM FOR NGT PLACEMENT, NGT IS AT LOW INTERMITTENT SUCTION, HE REPORTS THAT HE HAS ALREADY REPLACED THE FIRST CANISTER
--- NOTE | 2017-03-20 05:05 | NUR ---
SECOND CANISTER REPLACED
--- NOTE | 2017-03-20 05:19 | NUR ---
ADM CIERRA DUFFY PER MD ORDERS, SEE EMAR
--- NOTE | 2017-03-20 06:42 | NUR ---
LAB TO ROOM FOR AM BLOOD DRAW
--- NOTE | 2017-03-20 07:00 | NUR ---
CANISTER CHANGED OUT PER ALONSO AWAD, RN
--- NOTE | 2017-03-20 07:00 | NUR ---
SHIFT REPORT TO DAY SHIFT
[2017-03-20 07:32] LABS: BASOPHILS 0.1 % (0-2); EOSINOPHILS 1.1 % (0-7); HEMATOCRIT 40.5 % (36.0-48.0); IMMATURE GRANULOCYTES 0.8 % (0-5); LYMPHOCYTES 20.3 % (15-50); MCH 30.9 pg (26.0-34.0); MCHC 32.1 g/dL (31.0-37.0); MCV 96.2 fL (80.0-100.0); MEAN PLATELET VOLUME 9.3 fL (7.4-10.4); MONOCYTES 14.2 % (2-11); NEUTROPHILS 63.5 % (40-80); PLATELET COUNT 199 10x3/uL (130-400); RBC 4.21 10x6/uL (4.00-5.40); RDW 14.4 % (11.5-14.5); WBC 10.1 10x3/uL (4.8-10.8)
[2017-03-20 07:45] VITALS: BP 113/67
[2017-03-20 07:58] LABS: ALBUMIN 2.7 g/dL (3.4-5.0); ANION GAP 5.7 mmol/L (8-16); BILIRUBIN - TOTAL 0.5 mg/dL (0.2-1.3); CALCIUM 9.3 mg/dL (8.5-10.1); CARBON DIOXIDE 39.7 mmol/L (21.0-32.0); POTASSIUM - SERUM 3.4 mmol/L (3.5-5.1); PROTEIN - SERUM 7.3 g/dL (6.4-8.2)
[2017-03-20 08:00] LABS: CREATININE - SERUM 0.9 mg/dL (0.6-1.3)
--- NOTE | 2017-03-20 08:00 | NUR ---
PATIENT IS AWAKE AND ALERT THIS MORNING. VSS.
--- NOTE | 2017-03-20 10:10 | NUR ---
PATIENT REQUESTED ASSISTANCE GETTING OOB TO THE RESTROOM. SHE SAID THAT SHE IS FEELING SOME PRESSURE IN HER SUPRAPUBIC AREA AND WOULD LIKE TO PASS GAS OR HAVE A BM. CLAMPED HER NGT. WHILE OOB, WE WALKED ABOUT 250 FEET OUT INTO THE HALLWAY. HER GAIT IS STRAIGHT AND WITHOUT NOTED WEAKNESSES. SHE DID C/O BEING DIZZY WHEN WE STOPPED TO CHECK HER O2 SAT. IT WAS 90% ON ROOM AIR. WHEN BACK TO BED, IT WAS 86%. REPLACED O2 AT 3LPM AND IT TOOK A COUPLE OF MINUTES TO GET HER SAT >93%.
--- NOTE | 2017-03-20 10:30 | NUR ---
ORAL MEDICATIONS GIVEN. WILL LEAVE NGT CLAMPED FOR 30 MINUTES PER POLICY.
--- NOTE | 2017-03-20 11:25 | NUR ---
RECONNECTED THE SUCTION TO HER NGT. THERE IS 600CC IN THE CANISTER SO FAR.
--- NOTE | 2017-03-20 13:32 | NUR ---
PATIENT REPOSITIONED IN HER BED FOR COMFORT. SHE STATES THAT HER NGT IS PUTTING PRESSURE ON THE INSIDE OF HER NOSE. TRIED TO REPOSITION IT SOME. ASSISTED HER WITH SOME CHOLORASEPTIC SPRAY, HER THROAT IS HURTING HER ALSO. IVF ALL INFUSING PER ORDERS. CANISTER WITH 800CC SO FAR. CALL LIGHT IS WITHIN HER REACH. HER MALE ADJUNCT INSTRUCTOR HAS GONE AND SHE STATES THAT SHE IS GLAD FOR THE BREAK FROM HIS COMPANY.
[2017-03-20 13:36] VITALS: BP 104/60
--- NOTE | 2017-03-20 14:30 | NUR ---
PATIENT USED CALL LIGHT TO REQUEST A COLD WASHCLOTH. SHE IS PERSPIRING AND STATES THAT SHE IS HAVING A HOT FLASH. SHE HAS BEEN ON ESTROGEN SUPPLEMENT FOR 40 YEARS PER STATEMENT. NO OTHER COMPLAINTS. MONITORING.
--- NOTE | 2017-03-20 15:04 | NUR ---
PATEINT RESTING QUIETLY WITH DOOR AJAR. NO NEEDS NOTED.
--- NOTE | 2017-03-20 16:09 | NUR ---
DISCUSSED SURGERY EXPECTATIONS AT LENGTH WITH PATIENT AND HER CROP PICKER THEY WERE EXPLAINED TO THEM BY DR. BROOKE. HER SON FROM [place] CALLED (EUGENIO REEVES [phone]) AND ASKED A FEW QUESTIONS REGARDING EXPECTED RECVERY. EXPLAINED THAT RECOVERY COULD BE LENGTHY. HE REQUESTS WE CALL WITH ANY "[employer]". SHE HAS A SON HERE [place]. PAUL IS LIVING IN HER HOME. TA IS HER BOYFRIEND. WE DISCUSSED A LIVING WILL WITH HER. SHE WANTS HER SONS TO BE THE DICISION MAKERS FOR HER IF SHE CANNOT.
--- NOTE | 2017-03-20 16:15 | NUR ---
DR. CASH NOTIFIED OF CONSULT.
--- NOTE | 2017-03-20 18:43 | NUR ---
TRANSPORTED TO ROOM 211 VIA WHEELCHAIR WITH IVF INFUSING PER PUMP, O2 AT 3LPM PER NC. NGT SUCTION RESTARTED UPON ARRIVAL. BETHEA CATHETER PATENT TO BEDSIDE COLLECTION BAG. BRISA KOO GIVEN FULL REPORT. PATIENT WITHOUT STATED NEEDS.
--- NOTE | 2017-03-20 19:10 | NUR ---
ASSESSMENT COMPLETED, NO ACUTE DISTRESS NOTED, NGT TO LIT IN R NARE, IV TO R FA INFUSING, S/O AT BEDSIDE, SR'S UP, CL IN REACH, WILL MONITOR
[2017-03-20 20:00] VITALS: BP 120/63
--- NOTE | 2017-03-20 20:19 | NUR ---
PRN ZOFRAN GIVEN FOR C/O NAUSEA, PO MEDS HELD DUE TO NPO WITH NG TUBE AND NAUSEA, DENIES NEEDS, CL IN REACH
--- NOTE | 2017-03-20 21:06 | NUR ---
PRN DILAUDID GIVEN FOR C/O ABD PAIN, RHODA WELL, CL IN REACH
--- NOTE | 2017-03-20 23:12 | NUR ---
LYING IN BED, NO ACUTE DISTRESS NOTED, DENIES NEEDS AT THIS TIME, FALL PRECAUTIONS IN PLACE, S/O AT BEDSIDE, CL IN REACH
[2017-03-21] VITALS (10 sets, daily range): BP systolic 79–122; BP diastolic 37–74
[2017-03-21 05:19] LABS: BASOPHILS 0.1 % (0-2); EOSINOPHILS 1.3 % (0-7); HEMATOCRIT 38.4 % (36.0-48.0); HEMOGLOBIN 12.3 g/dL (12-16); IMMATURE GRANULOCYTES 0.9 % (0-5); LYMPHOCYTES 27.1 % (15-50); MCH 30.6 pg (26.0-34.0); MCV 95.5 fL (80.0-100.0); MEAN PLATELET VOLUME 8.9 fL (7.4-10.4); MONOCYTES 10.6 % (2-11); PLATELET COUNT 169 10x3/uL (130-400); RBC 4.02 10x6/uL (4.00-5.40); RDW 13.9 % (11.5-14.5); WBC 8.2 10x3/uL (4.8-10.8)
[2017-03-21 05:30] LABS: ALBUMIN 2.6 g/dL (3.4-5.0); ALKALINE PHOSPHATASE 62 U/L (46-116); ALT (SGPT) 50 U/L (10-68); CALC OSMOLALITY 271 mosm/kg (275-300); CALCIUM 9.1 mg/dL (8.5-10.1); CARBON DIOXIDE 37.1 mmol/L (21.0-32.0); CHLORIDE - SERUM 97 mmol/L (98-107); CREATININE - SERUM 0.8 mg/dL (0.6-1.3); GLUCOSE 103 mg/dL (74-106); MAGNESIUM - SERUM 1.7 mg/dL (1.8-2.4); POTASSIUM - SERUM 3.6 mmol/L (3.5-5.1); PROTEIN - SERUM 6.8 g/dL (6.4-8.2); SODIUM 134 mmol/L (136-145); UREA NITROGEN 24 mg/dL (7-18); eGFR NON AFRICAN AMERICAN 77 mL/min (90-120)
--- NOTE | 2017-03-21 07:15 | NUR ---
REPORT RECEIVED FROM CHEMICAL PROCESS EQUIPMENT OPERATOR NURSE. CALL LIGHT IN REACH.
--- NOTE | 2017-03-21 07:45 | NUR ---
ASSESSMENT COMPLETED. DILAUDID IVP PER C/O PAIN OF 9. SCDs APPLIED TO BLE. INCENTIVE SPIROMETER GIVEN TO PATIENT AND EXPLAINED USE. VERBALIZED UNDERSTANDING. SIGNIFICANT OTHER AT BEDSIDE. CALL LIGHT IN REACH. WILL CONTINUE WITH PLAN OF CARE.
--- NOTE | 2017-03-21 08:15 | NUR ---
PATIENT ALERT IN HIGH ANDRES POSITION WITH FAMILY AT BEDSIDE. NO SIGNS OF DISTRESS NOTED. SIDE RAILS UP X2. BED IN LOW POSITION. CALL LIGHT IN REACH.
--- NOTE | 2017-03-21 09:05 | NUR ---
PREOP MEDS ADMINISTERED PER ORDER. NGT CLAMPED.
--- NOTE | 2017-03-21 09:45 | NUR ---
TO OR VIA BED.
--- NOTE | 2017-03-21 11:49 | NUR ---
PATIENT IS LAYING IN BED, HOB 40 DEGREES. RESPIRATIONS ARE EVEN AND UNLABORED ON ROOM AIR. SPLINT TO FINGER INTACT. PATIENT'S FAMILY MEMBER AT BEDSIDE. BOTH DENY NEEDS. BED IN LOWEST POSITION, CALL LIGHT IN REACH. BED RAILS UP X'S 2.
--- NOTE | 2017-03-21 15:15 | NUR ---
PT BROUGHT TO ICU FROM SURGERY. HAS AN NG TUBE IN PLACE IN RIGHT NARE. AND O2 AT 2L VIA NC. IV IN THE RIGHT ARM SL AND A RIGHT IJ TL SL DRESSING TO ABD HAS SMALL AMOUNT OF BLOOD. C/O ABD PAIN. DEMEROL DIRECTOR ORACLE DATABASE INICIATED. EXPLAINED HOW TO USE DIRECTOR ORACLE DATABASE AND PT DEMOSTRATED KNOWLEDGE. ABD BINDER IN PLACE. ON TELEMETRY WITH SINUS TACHYCARDIA OF 124. SEE ASSESSMENT IN FLOW SHEET. SIGNIFICANT OTHER AT BED SED. STATUS UPDATED. NO FURTHER QUESTION.
--- NOTE | 2017-03-21 16:30 | NUR ---
450 CC EMPTIED FORM BETHEA CATH
--- NOTE | 2017-03-21 18:00 | NUR ---
ASIGNIFICANT OTHER AT BEDSIDE, STATUS UPDATED, VOICES NO NEEDS AT THIS TIME
--- NOTE | 2017-03-21 19:15 | NUR ---
Received patient resting in bed with eyes closed, assessment completed per flowsheet. Patient confused/disoriented to time/situation, calm and follows commands. Eyes PERRLA @ 4mm with brisk response, slcera is reddened. NGT R nare to LIWS, yellow/brown contents noted in collection cannister. S1/S2 noted with patient Sinus Tach on telemetry with HR 143, rythmic and regular. Breathing is shallow and unlabored on 3L via NC, lung sounds clear bilateral upper with diminished mid and lower lobes. Abdomen is round and firm with tenderness to palpation, bowel sounds hypoactive x4. Abdominal binder/midline incision noted, scant yellow drainage noted on dressing. Angeles secured in place, clear andreia urine noted in collection bag. Moderate weakness noted in all extermities with all pulses palpable, cap refill <3 sec. R IJ x3 lumen noted, patent with fluids infusing. Patient denies pain at this time, c/o feeling hot with patient afebrile. Denies other needs at this time, all VSS and will continue to monitor.
--- NOTE | 2017-03-21 19:43 | NUR ---
SPOKE WITH DR. CASH RE: HEART RATE 130'S -140'S, SINUS ARRHYTHMIA, STATES SHE IS COMPENSATING FOR HER LOW BP, NO INTERVENTION GIVEN AT THIS TIME
--- NOTE | 2017-03-21 23:00 | NUR ---
Reassessment completed per flowsheet, patient resting in bed with eyes closed. S1/S2 noted Sinus Tach on telemetry with HR 143, rhythmic and regular. Breathing is shallow and unlabored on 3L via NC, O2 sat 95%. Abdominal binder in place, no new drainage noted on dressing. Patient c/o nausea, PRN meds given and will reassess. Patient denies pain or other needs at this time, all VSS and will continue to monitor.
[2017-03-22] VITALS (23 sets, daily range): BP systolic 84–125; BP diastolic 31–90
--- NOTE | 2017-03-22 03:00 | NUR ---
Reassessment completed per flowsheet, patient resting in bed with eyes closed. S1/S2 noted Sinus Tach on telemetry with HR 129, rhythmic and regular. Breathing is shallow and unlabored on 3L via NC, O2 sat 94%. Midline incision dressing CDI, abdominal binder secured. Patient c/o pain 2/10 abdomen, repositioned and instructed on use of FIELD SERVICE ANALYST for pain mgmt. No further needs at this time, all VSS and will continue to monitor.
[2017-03-22 03:58] LABS: HEMATOCRIT 42.7 % (36.0-48.0); HEMOGLOBIN 14.2 g/dL (12-16); MCH 31.3 pg (26.0-34.0); MCHC 33.3 g/dL (31.0-37.0); MCV 94.1 fL (80.0-100.0); MEAN PLATELET VOLUME 9.3 fL (7.4-10.4); PLATELET COUNT 287 10x3/uL (130-400); RBC 4.54 10x6/uL (4.00-5.40); RDW 14.1 % (11.5-14.5); WBC 29.1 10x3/uL (4.8-10.8)
[2017-03-22 04:01] LABS: ANION GAP 8.7 mmol/L (8-16); CALCIUM 8.3 mg/dL (8.5-10.1); CARBON DIOXIDE 28.7 mmol/L (21.0-32.0); MAGNESIUM - SERUM 1.6 mg/dL (1.8-2.4); PHOSPHOROUS 3.6 mg/dL (2.5-4.9)
[2017-03-22 04:02] LABS: CREATININE - SERUM 1.7 mg/dL (0.6-1.3); POTASSIUM - SERUM 5.4 mmol/L (3.5-5.1)
[2017-03-22 04:52] LABS: EOSINOPHILS 1 % (0-7); LYMPHOCYTES 7 % (15-50); MONOCYTES 4 % (2-11); NEUTROPHILS 70 % (40-80); PLATELET ESTIMATE NORMAL
--- NOTE | 2017-03-22 07:00 | NUR ---
REC'D REPORT AND RESUMED CARE, SLEEPING,A ROUSABLE TO VERBAL STIMULI, , VSS, RIGHT NARE NGT TO LIWS WITH BROWNISH DRAINAGE TO TUBING, RIGHT IJTL WITH PROCALAMINE INFUSING AT 100 CC/HR, AND NS AT 100 CC/HR, BELLY BINDER IN PLACE WITH MIDLINE BORDERED GAUZE DRESSING IWTH SCANT BLOODY DRAINAGE, LOWER LEFT QUAUD WITH SYBIL BRUISING NOTED, FOELEY TO GRAVITY WITH JANICE DRAINAGE TO BAG, C/O PAIN 8/10 IN ABDOMEN, DEMEROL RETURNED TELEPHONE EQUIPMENT APPRAISER ENCOURAGED, SCD'S ON B/L, ASSESSMENT COMPLETED PER FLOWSHEET, CALL LIGHT IN REACH, VOICES NO OTHER NEEDS AT THIS TIME.
--- NOTE | 2017-03-22 08:35 | NUR ---
AM MEDS GIVEN PER MAR FLOWSHEET
--- NOTE | 2017-03-22 10:39 | NUR ---
NUTRITION MONITORING & EVAL CHART REVIEWED. REMAINS NPO. PROCALAMINE @ 100 CC/HR PROVIDING 580 KCAL, 72 GM PROTEIN PER DAY. 20% INTRALIPIDS/250 CC Q 48 HOURS PROVIDING ADDITIONAL 250 KCAL PER DAY FOR TOTAL 830 KCAL, [address] FOLLOWING
--- NOTE | 2017-03-22 10:47 | NUR ---
NS BOLUS GIVEN PER ORDERS. TOLERATING WELL.
--- NOTE | 2017-03-22 11:00 | NUR ---
RESTING WITH NO SIGNS OF DISTRESS, VSS, C/O PAIN 01/30, DEMEROL MOLD PRESSER IN USE, AND ENCOURAGED, VSS, REPOSITIONED TO LEFT SIDE WITH PILLOW PROPPED TO BACK AND HEELS FLOATED, CALL LIGHT IN REACH, NO NEEDS AT THIS TIME
[2017-03-22 13:09] LABS: BASOPHILS 0.1 % (0-2); EOSINOPHILS 0.2 % (0-7); HEMATOCRIT 36.6 % (36.0-48.0); IMMATURE GRANULOCYTES 0.8 % (0-5); LYMPHOCYTES 3.7 % (15-50); MCH 30.8 pg (26.0-34.0); MCHC 32.8 g/dL (31.0-37.0); MCV 93.8 fL (80.0-100.0); MEAN PLATELET VOLUME 8.9 fL (7.4-10.4); MONOCYTES 3.1 % (2-11); NEUTROPHILS 92.1 % (40-80); PLATELET COUNT 194 10x3/uL (130-400); RDW 14.2 % (11.5-14.5); WBC 24.9 10x3/uL (4.8-10.8)
[2017-03-22 13:23] LABS: ANION GAP 9.3 mmol/L (8-16); CALCIUM 7.7 mg/dL (8.5-10.1); CARBON DIOXIDE 25.3 mmol/L (21.0-32.0); POTASSIUM - SERUM 4.6 mmol/L (3.5-5.1)
[2017-03-22 13:24] LABS: CREATININE - SERUM 1.2 mg/dL (0.6-1.3)
--- NOTE | 2017-03-22 13:26 | NUR ---
PC TO PT DEPT. AWARE OF CONSULT, COMING IN LATER TODAY
--- NOTE | 2017-03-22 13:45 | NUR ---
PT AT BEDSIDE FOR EVAL, PATIENT UP TO AMBULATE WITHOUT DIFFICULTY, 120FT
--- NOTE | 2017-03-22 14:00 | NUR ---
UP IN CHAIR WATCHING TV, DENIES PAIN, VSS, CALL LIGHT IN REACH, VOICES NO NEEDS AT THIS TIME, LINEN CHANGE COMPLETED
--- NOTE | 2017-03-22 15:00 | NUR ---
CONTINUES TO SIT UP IN CHAIR, VSS, O2 VIA NC AT 3L, SAT 98%, RIGHT NARE NGT TO LIWS, WITH GREENISH DRAINAGE TO CANISTER, DENIES PAIN, DEMEROL ADZING AND BORING MACHINE OPERATOR IN USE, CALL LIGHT IN REACH, VOICES NO NEEDS AT THIS TIME
--- NOTE | 2017-03-22 17:52 | NUR ---
NS BOLUS #2 INITITATED @ 999ML/HR PER ORDER, PATIENT AWAKE AND ALERT, VSS, REPOSITIONED TO LEFT SIDE WITH PILLOW POPPED TO BACK AND HEELS FLOATED, CALL LIGHT IN REACH, VOICES NO OTHER NEEDS AT THIS TIME
--- NOTE | 2017-03-22 18:50 | NUR ---
1 LITER BOLUS COMPLETED
--- NOTE | 2017-03-22 19:00 | NUR ---
LAYING IN BED. ORIENTED TO TIME, PERSON, PLACE, AND SITUATION. S1S2 PRESENT. PERIPHERAL PULSES PALPABLE. LUNGS SOUNDS CLEAR EQUAL IN ALL LOBES. ABLE TO MOVE LOWER AND UPPER EXTREMITIES. TEACHING PROVIDED ON THE IMPORTANCE OF FREQUENT POSITIONING TO PREVENT SKIN ULCERS. R IJ CVL IN PLACE, PATENT, DRESSING ADHERED TO SKIN, CLEAN, AND DRY NO REDNESS, SWELLING, OR TENDERNESS NOTED. R ARM PIV IN PLACE SALINE LOCK, DRESSING ADHERED TO SKIN. SCD'S ON. NONSKID SOCKS IN PLACE. NG TUBE TO LOW INTERMITTENT SUCTION. SEE FLOWSHEET FOR FULL ASSESSMENT. BED IN LOWEST POSITION. CALL LIGHT WITHIN REACH. DENIES FURTHER NEEDS AT THIS TIME.
--- NOTE | 2017-03-22 21:00 | NUR ---
LAYING IN BED, HELPED WITH REPOSITIONING TO L SIDE FOR COMFORT. BED IN LOWEST POSITION. CALL LIGHT WITHIN REACH. DENIES FURTHER NEEDS AT THIS TIME.
--- NOTE | 2017-03-22 23:00 | NUR ---
CALLED FROM THE WAITING ROOM. UPDATE GIVEN. WILL CONT TO MONITOR.
[2017-03-23] VITALS (11 sets, daily range): BP systolic 79–107; BP diastolic 45–64
--- NOTE | 2017-03-23 01:00 | NUR ---
REPOSITIONED TO HER BACK FOR COMFORT. ORAL MOISTURIZER PROVIDED. DENIES FURTHER NEEDS AT THIS TIME. BED IN LOWEST POSITION. CALL LIGHT WITHIN REACH.
--- NOTE | 2017-03-23 03:00 | NUR ---
REPOSITIONED TO R SIDE FOR COMFORT. NO CHANGES NOTED. WILL CONTINUE TO MONITOR. CALL LIGHT WITHIN REACH. BED IN LOWEST POSITION.
[2017-03-23 03:44] LABS: BASOPHILS 0.1 % (0-2); EOSINOPHILS 1.1 % (0-7); LYMPHOCYTES 7.7 % (15-50); MCH 30.4 pg (26.0-34.0); MCHC 32.9 g/dL (31.0-37.0); MCV 92.6 fL (80.0-100.0); MONOCYTES 5.4 % (2-11); NEUTROPHILS 84.7 % (40-80); PLATELET COUNT 167 10x3/uL (130-400); RBC 3.12 10x6/uL (4.00-5.40); RDW 14.1 % (11.5-14.5)
[2017-03-23 03:48] LABS: HEMATOCRIT 28.9 % (36.0-48.0); HEMOGLOBIN 9.5 g/dL (12-16); WBC 17.8 10x3/uL (4.8-10.8)
[2017-03-23 03:59] LABS: ANION GAP 8.6 mmol/L (8-16); CALCIUM 7.8 mg/dL (8.5-10.1); CARBON DIOXIDE 25.4 mmol/L (21.0-32.0); CREATININE - SERUM 0.9 mg/dL (0.6-1.3); MAGNESIUM - SERUM 1.8 mg/dL (1.8-2.4)
[2017-03-23 04:04] LABS: PHOSPHOROUS 2.3 mg/dL (2.5-4.9)
--- NOTE | 2017-03-23 05:00 | NUR ---
LAYING ON L SIDE. NO CHANGES NOTED. WILL CONTINUE TO MONITOR.
--- NOTE | 2017-03-23 06:10 | NUR ---
AWAKE IN BED. IN ROOM. DENIES FURTHER NEEDS AT THIS TIME. CALL LIGHT WITHIN REACH. BED IN LOWEST POSITION. WILL CONTINUE TO MONITOR.
--- NOTE | 2017-03-23 07:00 | NUR ---
ASSESSMENT PER FLOWSHEET. VOICES NO CO AT TIME. NPO X ICE.
--- NOTE | 2017-03-23 08:00 | NUR ---
DR BARBER HERE OK TO TRANSFER TO FLOOR.
--- NOTE | 2017-03-23 10:00 | NUR ---
PT HERE UP AMBULATING WITH PT. GAIT STEADY. NO CO AT TIME.
--- NOTE | 2017-03-23 11:00 | NUR ---
RECEIVED FROM ICU VIA WC. [place] TO Steve CHU TO BROOKE. SMALL AMOUNT OF GREENISH DRAINAGE NOTED. DRESSING TO MIDLINE ABDOMEN C/D/I. ABDOMINAL BINDER IN USE. SCDS IN USE TO BILAT LEGS. BETHEA PATENT DRAINING YELLOW URINE. HOME CONNECT LPN DEMEROL 10-10-200 IN USE FOR PAIN CONTROL. FRIEND AT BEDSIDE. DENIES ANY NEEDS AT PRESENT.
--- NOTE | 2017-03-23 11:00 | NUR ---
TRANSFER TO [facility] REPORT GIVEN TO LILIA KOO.
--- NOTE | 2017-03-23 11:45 | NUR ---
SAFETY ASSISTANT SHOWING ST 116 PER TECH.
--- NOTE | 2017-03-23 13:00 | NUR ---
DENIES ANY NEEDS AT PRESENT.
--- NOTE | 2017-03-23 16:00 | NUR ---
TRIED TO EXPLAIN TO PATIENT AND FRIEND THAT DIET CAN'T BE STARTED WHILE NG TUBE IS IN USE. DOESN'T SEEM TO COMPREHEND ABOUT THE NEED TO PASS GAS BEFORE HAVING NG TUBE REMOVED AND STARTING DIET.
--- NOTE | 2017-03-23 18:30 | NUR ---
RESTING QUIETLY IN BED. FAMILY AT BEDSIDE.
--- NOTE | 2017-03-23 19:20 | NUR ---
ASSESSMENT COMPLETED, SIG OTHER IN ROOM, NGT TO LIT IN R NARE, R IJ INFUSING WITH EASE, ABD BINDER IN PLACE, BETHEA DRAINING TO GRAVITY, PT ANXIOUS WILL TREAT PER ORDERS, FALL PRECAUTIONS IN PLACE, CL IN REACH
--- NOTE | 2017-03-23 20:40 | NUR ---
MEDS GIVEN PER MAR, RHODA WELL, NO DISTRESS NOTED, FALL PRECAUTIONS IN PLACE, CL IN REACH
--- NOTE | 2017-03-23 22:10 | NUR ---
PT PULLED NG TUBE OUT, VERY ANXIOUS, ATTEMPTING TO GET OUT OF BED, ATIVAN GIVEN PER MAR WITH NO RESULTS, CONTACTED
--- NOTE | 2017-03-23 22:41 | NUR ---
ORDERS RECIEVED FROM EMMA RUTH APN FOR HALDOL 2MG IM NOW AND Q4 PRN, ALSO INSTRUCTED TO CONTACT DR BARBER TO INFORM HIM OF THE NG BEING PULLED OUT.
--- NOTE | 2017-03-23 22:50 | NUR ---
SERVICE PLUMBER CONTACTED TO PULL ORDERED HALDOL
--- NOTE | 2017-03-23 23:03 | NUR ---
HALDOL GIVEN PER ORDERS, PT RHODA WELL, CONTINUES TO BE AGITATED, STAFF ALTERNATING AND STAYING IN ROOM AT ALL TIMES, FALL PRECAUTIONS IN PLACE, CL IN REACH
--- NOTE | 2017-03-23 23:33 | NUR ---
DR BARBER ANSWERED PAGE, INFORMED OF PT CONDITION AND THAT NG TUBE WAS PULLED OUT BY PATIENT. ALSO INFORMED OF ORDER FOR HALDOL GIVEN BY EMMA, DR BARBER SAID TO LEAVE THE NG TUBE OUT AND FOLLOW THE ORDERS GIVEN BY EMMA
[2017-03-24] VITALS (11 sets, daily range): BP systolic 97–128; BP diastolic 48–68
--- NOTE | 2017-03-24 00:05 | NUR ---
PT CONTINUES TO BE AGITATED, ATTEMPTING TO CLIMB OUT OF BED AND PULL AT IJ IV, UNABLE TO REORIENT, THREATENING TO STAB STAFF, STATES " IM GETTING OUT OF HERE IF I HAVE TO STAB ALL OF YALL", 2 TO 3 STAFF MEMEBERS IN ROOM AT ALL TIMES, PAGED
--- NOTE | 2017-03-24 00:17 | NUR ---
ORDERS RECIEVED FROM EMMA RUTH FOR 3MG HALDOL NOW AND CHANGE PRN ORDER FROM 2MG Q4 TO 5MG Q4 AND TRANSFER PATIENT TO ICU, CORRECTIONAL CLASSIFICATION COUNSELOR CONTACTED AND INFORMED OF ORDER
--- NOTE | 2017-03-24 00:32 | NUR ---
PRN 3 MG HALDOL GIVEN IN L THIGH PER ORDERS, RHODA WELL, WILL CONTINUE TO MONITOR, FALL PRECAUTIONS IN PLACE, S/O OTHER AND STAFF IN ROOM, CL IN REACH
--- NOTE | 2017-03-24 00:48 | NUR ---
CASEY FROM ICU REFUSES PATIENT, STATES "I DON'T HAVE THE STAFF", INFORMED HER THAT I DID NOT GIVE THE ORDER, SHE STATED "FINE I WILL CALL EMMA" AND WALKED AWAY, TRIPLE AIR VALVE TESTER CONTACTED, WAS TOLD " IF SHE WON'T TAKE THEM THERE ISN'T ANYTHING I CAN DO", AWAITING INSTRUCTIONS, STAFF IN ROOM WITH PATIENT, FALL PRECAUTIONS IN PLACE.
--- NOTE | 2017-03-24 00:50 | NUR ---
REQUESTED STAFF FOR ONE ON ONE SUPERVISION, AWAITING RESPONSE, FALL PRECAUTIONS IN PLACE, STAFF IN ROOM, WILL CONTINUE TO MONITOR
--- NOTE | 2017-03-24 01:25 | NUR ---
PT RESTING WITH EYES CLOSED FOR PERIODS OF 1 OR 2 MINS THEN RETURNS TO BEING AGITATED AND ATTEMPTING TO CLIMB OUT OF BED AND PULL IJ LINE, SPOUSE AND STAFF IN ROOM
--- NOTE | 2017-03-24 02:13 | NUR ---
HOUSE SUPERVISER SITTING IN CHAIR MONITORING PATIENT SO FLOOR STAFF CAN ATTEND TO OTHER PATIENTS
--- NOTE | 2017-03-24 03:07 | NUR ---
PT CONTINUES TO BE CONFUSED WITH HALLUCINATIONS, SOMEWHAT CALMER NOW WITH INTERMITTANT PERIODS OF ATTEMPTING TO GET OUT OF BED AND TUG ON BETHEA, S/O AT BEDSIDE, STAFF CONTINUES TO MONITOR
--- NOTE | 2017-03-24 04:10 | NUR ---
PT ATTEMPTING TO PULL IJ OUT AND GET OUT OF BED, LAB PERSONNEL AND SN STOPPED PT FROM GETTING UP, IRRIGATIONIST DESIGNER CONTACTED TO PULL NEXT PRN DOSE OF HALDOL, FALL PRECAUTIONS IN PLACE, STAFF IN ROOM
--- NOTE | 2017-03-24 04:40 | NUR ---
PRN DIANA MARSHALL PER MAR IN R THIGH FOR EXTREME AGITATION, RHODA WELL, STAFF IN ROOM
--- NOTE | 2017-03-24 04:40 | NUR ---
PRN HALDOL GIVEN PER ORDERS FOR EXTREME AGITATION, RHODA WELL, STAFF IN ROOM
[2017-03-24 04:43] LABS: BASOPHILS 0 % (0-2); HEMATOCRIT 24.6 % (36.0-48.0); HEMOGLOBIN 8.3 g/dL (12-16); IMMATURE GRANULOCYTES 0.6 % (0-5); LYMPHOCYTES 8.4 % (15-50); MCH 31.2 pg (26.0-34.0); MCHC 33.7 g/dL (31.0-37.0); MCV 92.5 fL (80.0-100.0); MEAN PLATELET VOLUME 8.7 fL (7.4-10.4); MONOCYTES 5.7 % (2-11); NEUTROPHILS 84.3 % (40-80); PLATELET COUNT 141 10x3/uL (130-400); RBC 2.66 10x6/uL (4.00-5.40); RDW 14.4 % (11.5-14.5)
[2017-03-24 04:44] LABS: WBC 8.6 10x3/uL (4.8-10.8)
[2017-03-24 04:57] LABS: CALC OSMOLALITY 271 mosm/kg (275-300); CALCIUM 8.1 mg/dL (8.5-10.1); CARBON DIOXIDE 25.7 mmol/L (21.0-32.0); CHLORIDE - SERUM 104 mmol/L (98-107); CREATININE - SERUM 0.8 mg/dL (0.6-1.3); GLUCOSE 88 mg/dL (74-106); MAGNESIUM - SERUM 1.6 mg/dL (1.8-2.4); PHOSPHOROUS 2.7 mg/dL (2.5-4.9); POTASSIUM - SERUM 3.7 mmol/L (3.5-5.1); SODIUM 135 mmol/L (136-145); eGFR NON AFRICAN AMERICAN 77 mL/min (90-120)
[2017-03-24 04:58] LABS: UREA NITROGEN 20 mg/dL (7-18)
--- NOTE | 2017-03-24 07:54 | NUR ---
AWAKE AND ALERT. RESPONDS APPROPRIATELY TO QUESTIONS. LUNGS ARE CLEAR BILATERALLY, NO COUGH NOTED. SKIN IS INTACT WITHOUT REDNESS EXCEPT INCISIONS TO ABDOMEN WHICH HAVE DRY INTACT DRESSINGS IN PLACE. ABDOMINAL BINDER IN PLACE WELL. BETHEA PATENT WITH CLEAR YELLOW URINE. IV TO RIGHT FOREARM IS PATENT WITHOUT REDNESS. RIGHT SUBCLAVIAN IS PATENT WITHOUT REDNESS AT INSERTION SITE. SCD'S IN PLACE. SIGNIFICANT OTHER AT BEDSIDE. DENIES NEEDS.
--- NOTE | 2017-03-24 09:00 | NUR ---
VERY CONFUSED AT THIS TIME. ASSISTED UP TO BR WITH 2 PERSON ASSIST. NO BM AT THIS TIME. AMBULATED TO CHAIR ON FAR SIDE OF BED WITH ONE PERSON ASSIST. O2 75% AFTER ACTIVITY WITHOUT O2. UP TO 98% ON 2L NC. SIGNIFICANT OTHER IN ROOM. ENCOURAGED TO STAY IN CHAIR. EVETTE MAT IN PLACE.
--- NOTE | 2017-03-24 11:04 | NUR ---
RESTING QUIETLY IN CHAIR. DENIES NEEDS. CONTINUES CONFUSED.
--- NOTE | 2017-03-24 12:30 | NUR ---
UP TO BR WITH ONE PERSON ASSIST. O2 OFF AGAIN. SAT AT 80%. UP TO 98% WITH O2 AT 2L NC. REPOSTIONED IN BED FOR COMFORT.
--- NOTE | 2017-03-24 12:59 | OP ---
PATIENT NAME: ROBERTH MYERS MEDICAL RECORD: [id number] :57 LOCATION:[id number] ADMISSION DATE:03/16/17 SURGEON: LUCIANO BARBER MD DATE OF OPERATION: 03/21/2017 PREOPERATIVE DIAGNOSES: 1. Small-bowel obstruction. 2. Chronic obstructive pulmonary disease. 3. Hepatitis B. 4. Atrial fibrillation. 5. Asthma. 6. Anxiety/depression. POSTOPERATIVE DIAGNOSES: 1. Small-bowel obstruction. 2. Chronic obstructive pulmonary disease. 3. Hepatitis B. 4. Atrial fibrillation. 5. Asthma. 6. Anxiety/depression. PROCEDURES: 1. Exploratory laparotomy with lysis of adhesions. 2. Small bowel resection times 2. 3. Abdominal scar revision. SURGEON: Luciano Barber MD REPORT OF PROCEDURE: The patient's abdomen was prepped and draped in sterile fashion. A Veress needle was inserted in the left upper quadrant, had some difficulty with placing the Veress needle in the abdomen, but eventually, I was able to inspect the abdomen and inserted a 5-mm trocar in the left side of the abdomen. Once in the left abdomen, I was never able to fully see around the abdominal cavity very well, eventually just elected to open up the abdominal cavity. Once I did this, I performed a midline incision. Using electrocautery, I got through the subcutaneous tissues and fascia and entered the abdomen. The patient had some dense adhesions of the omentum to the anterior abdominal wall. Once we got through this adhesion, we were able to get down to the small bowel, which was markedly dilated. We followed the small bowel down to the pelvis. There was noted to be some dense bands of adhesions which were causing the obstruction. As we released the adhesions, the small bowel was noted to be perforated in 2 sites. One of the sites appeared to be chronically adhesed and scar down and the other one appeared to be a traction injury. We removed these 2 small segments of small bowel and I performed [id number] anastomosis with 75 blue load AMENA staplers. The enterotomies were closed with a 30 blue load TA staplers and then oversewed the staple lines with Lemberted 3-0 silks. Both of these anastomoses were large and patent. We irrigated out the abdomen thoroughly with normal saline to remove any of the succus material which was present. The remainder of the small bowel was then inspected from ligament of Treitz to the terminal ileum. We were able to free up the remainder of the adhesions and could see the stomach and it appeared that a Veress needle actually penetrated the stomach at some point. There was some bruising around the antrum of the stomach, but on the posterior aspect of the stomach, there was no sign of any penetration. I went ahead and just did a [id number] with 3-0 silk over this portion of the stomach. I did not physically see a OPERATIVE REPORT [id number] [facility] perforation in that area, but the bruising was concerning. The patient's left colon and down to the sigmoid were all inspected. The patient had a previous colostomy and Shagufta's procedure, so there was a lot of scarring in this area, but I was eventually able to see all of the colon and saw no sign of any injury to this bowel. There was a large amount of stool present within the colon itself. At this point, the bowel was placed back into the abdominal cavity. We irrigated out the abdomen thoroughly with normal saline. The midline fascia was closed with running #1 looped PDS times 2. We then undermined the skin in both directions and removed a large section of the scar in the mid abdomen from a previous wound closure done by secondary intent. We reapproximated the subcutaneous tissues with interrupted 3-0 Vicryls and the skin was closed with elvin. COMPLICATIONS: None. CONDITION: Stable. ANESTHESIA: General endotracheal and local. BLOOD LOSS: 100 mL. TRANSINT:[id number] Voice Confirmation ID: [id number] DOCUMENT ID: [id number] LUCIANO BARBER MD at 1259 CC: ALBERTO BROOKS MD [id number] DICTATION DATE: 03/21/17 1337 [place] TENDER: 03/21/17 2142 ADM IN [facility] [address] [place] [address]
--- NOTE | 2017-03-24 13:30 | NUR ---
RESTING QUIETLY WITH EYES CLOSED. SIGNIFICANT OTHER ALSO AT REST. NO NEEDS. NOTED. O2 IN PLACE.
--- NOTE | 2017-03-24 14:30 | NUR ---
AWAKE AND CONFUSED. PULLED PIV OUT. ATTEMPTED TO PULL JUGULAR OUT WELL. STAFF ASSISTED UP TO BR WITH NO RESULTS. CONTINUES TO PULL O2 OFF. ENCOURAGED TO LEAVE IN PLACE. BEING BELIGERANT AT TIMES. REPORT CALLED SAEID PEOPLES RN IN ICU. TRANSFERRED VIA BED TO ROOM 2206. SIGNIFICANT OTHER AWARE OF TRANSFER AND WENT WITH PATIENT.
--- NOTE | 2017-03-24 14:56 | NUR ---
RECIEVED REPORT ON PT FROM [place], WAITING TO RECIEVE PT TO UNIT FROM [facility].
--- NOTE | 2017-03-24 15:09 | NUR ---
PT ARRIVED TO UNIT AT THIS TIME. IS NOTED CONFUSED AND PULLING AT LINES. REORIENTATION PROVIDED. PT CONTINUED TO PULL AT LINES AND TUBING. BILATERAL SOFT WRIST RESTRAINTS PLACED AT THIS TIME FOR PT SAFETY. WILL CONTINUE PLAN OF CARE.
--- NOTE | 2017-03-24 16:14 | NUR ---
NOTED MAGNESIUM LEVEL LOW, PT IS ON ELECTROLYTE PROTOCOL, REPLACEMENT ADMIN PER PROTOCOL GUIDELINES. WILL CONTINUE PLAN OF CARE.
--- NOTE | 2017-03-24 16:48 | NUR ---
BOYFRIEND AT BEDSIDE AT THIS TIME. UPDATE GIVEN. NO ACUTE DISTRESS NOTED. WILL CONTINUE PLAN OF CARE.
--- NOTE | 2017-03-24 18:56 | NUR ---
PT AWAKE IN BED AT THIS TIME. BOYFRIEND AT BEDSIDE. PT NOTED CONFUSED. REORIENTATION PROVIDED. NO ACUTE DISTRESS NOTED. WILL CONTINUE PLAN OF CARE.
--- NOTE | 2017-03-24 19:00 | NUR ---
1900: Pt rec'd resting HOB 30 degrees with eyes closed. Open to verbal. Pt confused not oriented to time or place. Verbal reorientation only partially successful at this time. Pt follows commands and moves x4 extrem vs gravity w/o difficulty. Breathing 022LNC. Encouraged DBC. S1S2 regular SR on CM. Right IJ CVL with NS, Procal, and Demerol ACADEMIC ASSOCIATE infusing. ABD with large midline incision seen. Incision is open to air and no s/s of bleeding, oozing, or redness at site. ABD binder is in place. BS absent x4 with auscultation. Angeles to gravity with >30 cc/hr yellow UOP.
--- NOTE | 2017-03-24 20:00 | NUR ---
2000: Pt at bedside. Update provided and verbalized understanding.
--- NOTE | 2017-03-24 21:00 | NUR ---
2100: Pt repositoned for comfort. Pt remains in bilateral soft wrist restraints. Pt remains confused, but follows commands and assists in turning. No change in RESP/CV/NV status.
--- NOTE | 2017-03-24 23:00 | NUR ---
2300: Pt assists with turning and follows commands. 1 limb vs 2 limb restraint at this time to assess continued need for restraint. Pt remains confused not oriented to time. Verbal reorientation provided.
[2017-03-25] VITALS (16 sets, daily range): BP systolic 83–127; BP diastolic 47–80
--- NOTE | 2017-03-25 01:30 | NUR ---
0130: Pt resting in bed with eyes closed. Pt remains SR on CM. No change in RESP/CV/NV status. No change IVF/UOP.
--- NOTE | 2017-03-25 02:08 | NUR ---
RECIEVED REPORT FROM NURYS Medeiros RN. RESUMING CARE OF PATIENT.
--- NOTE | 2017-03-25 03:00 | NUR ---
REASSESSMENT COMPLETE, PLEASE SEE FLOW SHEETS FOR DETAILS. ALERT AND ORIENTED TO PLACE AND SELF BUT NOT TO SITUATION AND TIME. COMPLAINS OF PAIN IN ABDOMEN PINCHING - STOMACH AREA. REPOSITIONED FOR COMFORT TO RIGHT SIDE. ON 2L NC, SPO2 97%. VSS ATT, BED LOW AND LOCKED, CALL LIGHT IN REACH. WILL CONTINUE POC.
--- NOTE | 2017-03-25 03:15 | NUR ---
PT ASKED TO HAVE HER HANDS FREE, ASKED HER IF SHE WAS GOING TO PULL AT ANYTHING, SHE SAID SHE WOULD NOT. PATIENT ORIENTED TO SELF AND PLACE ONLY, BUT FOLLOWS DIRECTIONS ACCORDINGLY. STARTED USING HER CALL LIGHT MORE WELL. UNTIED RESTRAINTS ATT, BED LOW AND LOCKED WITH CALL LIGHT IN REACH. WILL CONTINUE TO MONITOR.
[2017-03-25 04:29] LABS: BASOPHILS 0 % (0-2); EOSINOPHILS 1.2 % (0-7); HEMATOCRIT 25.4 % (36.0-48.0); HEMOGLOBIN 8.4 g/dL (12-16); IMMATURE GRANULOCYTES 1.2 % (0-5); LYMPHOCYTES 16.6 % (15-50); MCH 30.7 pg (26.0-34.0); MCHC 33.1 g/dL (31.0-37.0); MCV 92.7 fL (80.0-100.0); MEAN PLATELET VOLUME 8.5 fL (7.4-10.4); MONOCYTES 10.2 % (2-11); NEUTROPHILS 70.8 % (40-80); PLATELET COUNT 154 10x3/uL (130-400); RBC 2.74 10x6/uL (4.00-5.40); RDW 14.6 % (11.5-14.5)
[2017-03-25 04:40] LABS: CALC OSMOLALITY 277 mosm/kg (275-300); CALCIUM 7.8 mg/dL (8.5-10.1); CARBON DIOXIDE 24.7 mmol/L (21.0-32.0); CHLORIDE - SERUM 106 mmol/L (98-107); CREATININE - SERUM 0.6 mg/dL (0.6-1.3); GLUCOSE 101 mg/dL (74-106); POTASSIUM - SERUM 3.7 mmol/L (3.5-5.1); SODIUM 138 mmol/L (136-145); UREA NITROGEN 19 mg/dL (7-18); eGFR NON AFRICAN AMERICAN > 90 mL/min (90-120)
--- NOTE | 2017-03-25 05:00 | NUR ---
REPOSITIONING AND ORAL CARE PROVIDED. COMPLAINS OF STOMACH CRAMPS, INFORMED PT THIS COULD BE DUE TO THE FACT THAT SHE HAS NOT EATEN ANYTHING AND THAT HER BOWELS ARE TRYING TO START MOVING AGAIN. SHE HAS NO OTHER NEEDS ATT, BED LOW AND LOCKED, CALL LIGHT IN REACH. VSS, WILL CONTINUE POC.
--- NOTE | 2017-03-25 07:00 | NUR ---
REC'D CARE OF PT. PLEASANTLY CONFUSED.VSS.
--- NOTE | 2017-03-25 07:49 | NUR ---
INITIAL ASSESSEMENT COMPLETED PER FLOW SHEET. ON 2L 02 VIA NC. SATTING 97%. RR 16 EVEN AND UNLABORED. LUNGS CTA WITH DIMINSIHING IN LOWER LOBES. BS ABSENT X4 QUADS.C/O OF "CRAMPING" ABD PAIN. 06/01. TEACHING DONE ON DEMEROL READING INTERVENTION TEACHER. PT. USES READING INTERVENTION TEACHER. RIGHT IJ CVL WITH NS AT 50. PROCALIMENE AT 100. DEMEROL READING INTERVENTION TEACHER, 10MG Q10". 200 MG Q4H LO.DRSG CD&I. ABD INCISION CASTING DIRECTOR, ERIC INTACT. ABD BINDER IN PLACE. NO S/S OF BLEEDING OR DRAINAGE. PPP. HATFIELD. FOLLOWS COMMANDS. REFUSED SCD'S. CLWR. CPOC.
--- NOTE | 2017-03-25 09:00 | NUR ---
REPOSITIONED FOR COMFORT AND TO PRESERVE SKIN INTEGRITY. TURNED ON LEFT SIDE.
--- NOTE | 2017-03-25 09:36 | NUR ---
AT BEDSIDE. UPDATED.
--- NOTE | 2017-03-25 09:45 | NUR ---
REPOSSITIONS SELF IN BED. TURNS INDEPENDENTLY ON HER RIGHT SIDE.
--- NOTE | 2017-03-25 11:00 | NUR ---
REASSESSMENT COMPLETED PER FLOW SHEET. REPOSITIONED FOR COMFORT AND TO PRESERVE SKIN INTEGRITY. ON BACK AT THIS TIME. RIGHT IJ CVL WITH NS/IVPB. PROCALAMENE AND DEMAROL VACCINATOR. DRSG CD&I. ABD BINDER IN PLACE. MIDLINE ABD INCISION. ERIC INTACT. REFUSED SCD'S. PPP. HATFIELD. FOLLOWS COMMANDS. CLWR CPOC
--- NOTE | 2017-03-25 12:05 | NUR ---
DR. BARBER SAID OK TO MOVE TO FLOOR. I WENT AND LOOKED FOR HER IN WAITING ROOM X2 BUT HE WAS NOT THERE. DR. JUNG HERE SAID TO TRANSFER TO FLOOR.
--- NOTE | 2017-03-25 12:09 | NUR ---
DR. JUNG TALKING WITH NOW, UPDATING HIM.
--- NOTE | 2017-03-25 13:18 | NUR ---
REPOSITIIONED FOR COMFORT AND TO PRESERVE SKIN INTEGRITY. TURNED ON LEFT SIDE.
--- NOTE | 2017-03-25 13:41 | NUR ---
OCTAVIO LOPEZ RN AT BEDSIDE DISCUSSING TURNING SCHEDULE WITH PT. PT. ANSWERS "YES" WHEN ASKED IF WE HAVE BEEN TURNING HER REGULAR. ALSO STATES "I TURN MYSELF AND IF I CANT, THEY HELP ME." PT.HAS TURNED INDEPENDENTLY AT TIMES AND WE HAVE TURNED HER REGULARY AT TIMES. CLWR. CPOC.
--- NOTE | 2017-03-25 13:56 | NUR ---
REPORT CALLED TO THE FLOOR NURSE AND READY TO TRANSFER TO ROOM 2234.
--- NOTE | 2017-03-25 14:22 | NUR ---
TRANSFERED TO 2234 VIA WITHOUT INCIDENT.
--- NOTE | 2017-03-25 14:29 | NUR ---
RECEIVED TO ROOM 2234 AT THIS TIME FROM ICU VIA WHEELCHAIR. BOYFRIEND AT BEDSIDE. BED ALARM AND EVETTE MAT ON AND IN USE. PT ALERT AND ORIENTED X4. CALL LIGHT IN REACH. PT PROVIDED WITH ICE CHIPS. WILL CONTINUE WITH PLAN OF CARE. PT REFUSES SCD'S.
[2017-03-26] VITALS: BP 93/42
--- NOTE | 2017-03-26 00:13 | NUR ---
REC'D IN BED LYING ON LEFT SIDE ABD. WITH MIDLINE INCISION CLIPS INTACT NO REDNESS OR DRAINAGE OBSERVED.WILL CONTINUE TO MONITOR FOR ANY CHGES AND FOLLOW CURRENT PLAN OF CARE
--- NOTE | 2017-03-26 02:56 | NUR ---
PT IS ASLEEP WITH EASY RESPIRATIONS AND O2 IN PLACE. SHE HAS A BETHEA IN PLACE AND NO DISTRESS NOTED. THERE IS FAMILY ASLEEP IN THE ROOM ALSO. THE BED IS LOW, RAILS UP X'S 2 WITH THE CALL LIGHT AT HAND.
[2017-03-26 04:00] VITALS: BP 95/50
--- NOTE | 2017-03-26 07:50 | NUR ---
PT AOX4 RESP EVEN AND NONLABORED PT DENIES NEEDS AT THIS TIME IV TO RIGHT IJ PATENT AND INTACT SRX2 BED AT LOWEST SETTING CALL LIGHT WITHIN REACH WILL CONTINUE TO MONITOR
[2017-03-26 08:23] VITALS: BP 95/47
[2017-03-26 12:55] VITALS: BP 101/60
[2017-03-26 17:08] VITALS: BP 103/55
[2017-03-26 19:00] VITALS: BP 102/57
--- NOTE | 2017-03-26 19:20 | NUR ---
RECIEVED SHIFT REPORT. PT IS LYING IN BED. ALERT AND ORIENTED AND ABLE TO VERBALIZE NEEDS. IV IS PATENT AND FLUIDS ARE RUNNING PER ORDER. PT USES MINIMAL ASSISTANCE TURNING IN BED FOR COMFORT AND SKIN CARE. O2 @ 3 PER NASAL CANNULA. BETHEA IS DRAINING URINE BY GRAVITY. PT REFUSES SCD'S AT THIS TIME. INCISION TO ABDOMEN C/D/I. ABDOMINAL BINDER IN PLACE. PT STATES PAIN IS 7/10 WITH INTERNATIONAL TRADE SPECIALIST PUMP. NO NEEDS ARE VERBALIZED AT THIS TIME. VISITOR IS AT BEDSIDE. SIDE RAILS ARE UP X 2. BED IS IN LOWEST POSITION. EVETTE MAT IS ON FOR SAFETY. CALL LIGHT IS WITHIN REACH.
--- NOTE | 2017-03-26 21:59 | NUR ---
SHIFT ASSESSMENT COMPLETED. ANTIBIOTIC HUNG PER ORDER. PT ASSISTETD TO REPOSITION FOR COMFORT. NO FURTHER NEEDS AT THIS TIME. WILL MONITOR. VISITOR AT BEDSIDE. SIDE RAILS X 2. BED LOW. EVETTE MAT ON. CALL LIGHT IN REACH.
[2017-03-27] VITALS: BP 98/54
[2017-03-27 04:00] VITALS: BP 93/46
[2017-03-27 04:56] LABS: BASOPHILS 0.2 % (0-2); EOSINOPHILS 2.2 % (0-7); HEMATOCRIT 27.7 % (36.0-48.0); HEMOGLOBIN 9.1 g/dL (12-16); IMMATURE GRANULOCYTES 1.5 % (0-5); MCH 30.6 pg (26.0-34.0); MCHC 32.9 g/dL (31.0-37.0); MCV 93.3 fL (80.0-100.0); MEAN PLATELET VOLUME 8.5 fL (7.4-10.4); MONOCYTES 9.8 % (2-11); NEUTROPHILS 62.3 % (40-80); PLATELET COUNT 167 10x3/uL (130-400); RBC 2.97 10x6/uL (4.00-5.40); RDW 14.5 % (11.5-14.5); WBC 4.6 10x3/uL (4.8-10.8)
[2017-03-27 05:14] LABS: ALBUMIN 1.6 g/dL (3.4-5.0); ALKALINE PHOSPHATASE 41 U/L (46-116); ALT (SGPT) 20 U/L (10-68); BILIRUBIN - TOTAL 0.32 mg/dL (0.2-1.3); CALC OSMOLALITY 276 mosm/kg (275-300); CALCIUM 7.8 mg/dL (8.5-10.1); CARBON DIOXIDE 27.2 mmol/L (21.0-32.0); CHLORIDE - SERUM 106 mmol/L (98-107); CREATININE - SERUM 0.6 mg/dL (0.6-1.3); GLUCOSE 90 mg/dL (74-106); POTASSIUM - SERUM 3.8 mmol/L (3.5-5.1); SODIUM 138 mmol/L (136-145); UREA NITROGEN 15 mg/dL (7-18); eGFR NON AFRICAN AMERICAN > 90 mL/min (90-120)
--- NOTE | 2017-03-27 07:30 | NUR ---
PTY ASSESSMENT COMPLETE SEE FLOWSHEET FOR FULL ASSESSMENT. PT AWAKE AND ALERT ORIENTED X 3 LUNGS WITH DIMINISHED BASES BILATERALLY. BSA BUT HYPOACTIVE.
[2017-03-27 08:27] VITALS: BP 96/58
--- NOTE | 2017-03-27 08:35 | NUR ---
PATIENT IN MID ANDRES POSITION RESTING WITH EYES CLOSED. RESPIRATIONS EVEN AND UNLABORED. SIDE RAILS UP X2. BED IN LOW POSITION. CALL LIGHT IN REACH.
[2017-03-27 11:39] VITALS: BP 90/49
--- NOTE | 2017-03-27 14:58 | NUR ---
BETHEA PATENT TO CONCENTRATED DARK YELLOW URINE. NO DISTRESS NOTED CALL LIGHT IN REACH SIDE RAILS UP X [address] RIGHT IJTL NOTED PATENT TO FLUSH
[2017-03-27 16:13] VITALS: BP 98/56
[2017-03-27 18:00] VITALS: BP 93/46
--- NOTE | 2017-03-27 19:25 | NUR ---
RECIEVED SHIFT REPORT. PT IS LYING IN BED. ALERT AND ORIENTED AND ABLE TO VERBALIZE NEEDS. PT HAS BEEN UP WITH ASSISTANCE OF PHYSICAL THERAPY. O2 @ 2 PER NASAL CANNULA. MIDLINE INCISION WITH ERIC C/D/I. BETHEA IS DRAINING URINE BY GRAVITY. PT REFUSES SCD'S. PT STATES PAIN IS 7/10. NO NEEDS ARE VERBALIZED AT THIS TIME. WILL CONTINUE TO MONITOR. VISITOR IS AT THE BEDSIDE. SIDE RAILS ARE UP X 2. BED IS IN LOWEST POSITION. EVETTE MAT IS ON FOR SAFETY. CALL LIGHT IS WITHIN REACH.
--- NOTE | 2017-03-27 20:42 | NUR ---
SHIFT ASSESSMENT COMPLETED. NIGHT MEDS GIVEN WITH NO PROBLEMS. PT C/O PAIN 07/02. ADMINISTERED PRESCRIBED PRN NORCO. DENIES FURTHER NEEDS. WILL MONITOR. VISITOR AT BEDSIDE. SIDE RAILS X 2. BED LOW. EVETTE ON. CALL LIGHT IN REACH.
[2017-03-28] VITALS: BP 90/48
[2017-03-28 04:00] VITALS: BP 101/59
[2017-03-28 05:00] LABS: BASOPHILS 0.2 % (0-2); EOSINOPHILS 2.6 % (0-7); HEMATOCRIT 26.4 % (36.0-48.0); HEMOGLOBIN 8.7 g/dL (12-16); IMMATURE GRANULOCYTES 1.3 % (0-5); LYMPHOCYTES 30.2 % (15-50); MCH 30.6 pg (26.0-34.0); MEAN PLATELET VOLUME 8.2 fL (7.4-10.4); MONOCYTES 11.5 % (2-11); NEUTROPHILS 54.2 % (40-80); PLATELET COUNT 187 10x3/uL (130-400); RBC 2.84 10x6/uL (4.00-5.40); RDW 14.5 % (11.5-14.5); WBC 5.4 10x3/uL (4.8-10.8)
[2017-03-28 05:42] LABS: ALBUMIN 1.7 g/dL (3.4-5.0); ALKALINE PHOSPHATASE 40 U/L (46-116); ALT (SGPT) 20 U/L (10-68); BILIRUBIN - TOTAL 0.33 mg/dL (0.2-1.3); CALC OSMOLALITY 277 mosm/kg (275-300); CARBON DIOXIDE 28.4 mmol/L (21.0-32.0); CHLORIDE - SERUM 106 mmol/L (98-107); CREATININE - SERUM 0.7 mg/dL (0.6-1.3); GLUCOSE 87 mg/dL (74-106); POTASSIUM - SERUM 3.3 mmol/L (3.5-5.1); SODIUM 140 mmol/L (136-145); UREA NITROGEN 12 mg/dL (7-18); eGFR NON AFRICAN AMERICAN 90 mL/min (90-120)
[2017-03-28 08:48] VITALS: BP 108/62
[2017-03-28] MEDS ORDERED: LEVAQUIN750 MG PO (09:06)
[2017-03-28] MEDS ORDERED: FLAGYL500 MG PO (09:06)
[2017-03-28] MEDS ORDERED: HYDROCODONE-APA1 TAB PO (09:06)
[2017-03-28] MEDS ORDERED: MEDROL DOSE PACK4 MG PO (09:08)
--- NOTE | 2017-03-28 11:14 | NUR ---
PT BETHEA PULLED PER ORDER AND CVL DISCONTINUED TIP INTACT. PRESSURE HELD FOR 10 MIN NO BLEEDING NOTED 4X4 WITH TEGADERM DRESSING APPLIED TO INSERTION SITE. PT GIVEN DISCHARGE INSTRUCTIONS AND DISCHARGE MEDICATION LIST WELL ALL HOME MEDS FROM PHARMACY LOCK UP RETURNED. LEFT VIA WHEELCHAIR WITH SPOUSE AT SIDE.
== END 2017-03-28 11:18 | disposition home or self-care (01) | DRG 330 ==
LOC: D.ER 02:27 → D.MS 05:09 → D.ICU 05:09 → D.WS 05:09 → D.MS 03-20 18:44 → D.ICU 03-21 14:54 → D.MS 03-23 11:05 → D.ICU 03-24 15:18 → D.MS 03-25 14:27
PROVIDERS: Emergency Medicine; Family Medicine; Surgery; ADMIT Family Medicine
PROC: 0DT80ZZ Resection of Small Intestine, Open Approach (ICD-10-PCS; principal; 2017-03-21 10:15)
PROC: 0DN80ZZ Release Small Intestine, Open Approach (ICD-10-PCS; 2017-03-21 10:15)
DX: K56.60 Unspecified intestinal obstruction (principal); B19.10 Unspecified viral hepatitis B without hepatic coma; N17.9 Acute kidney failure, unspecified; F17.203 Nicotine dependence unspecified, with withdrawal; K66.0 Peritoneal adhesions (postprocedural) (postinfection); J44.9 Chronic obstructive pulmonary disease, unspecified; I48.91 Unspecified atrial fibrillation; F41.9 Anxiety disorder, unspecified; F32.9 Major depressive disorder, single episode, unspecified; I34.0 Nonrheumatic mitral (valve) insufficiency

== ENCOUNTER 2017-07-23 19:23 | Inpatient (IN) | payer MEDICARE, MEDICAID ==
[~2017-07-23] VITALS: Ht 175.3 cm; Wt 53.5 kg
[~2017-07-23 19:23] MED LIST changes: +BENTYL10 MG PO; +BUSPIRONE HCL30 MG PO; +CYMBALTA60 MG PO; +DEXILANT60 MG PO; +ELAVIL25 MG PO; +FLAGYL500 MG PO; +FLOMAX0.4 MG PO; +HYDROCODONE-APA1 TAB PO; +LEVAQUIN750 MG PO; +MEDROL DOSE PACK4 MG PO; +METOPROLOL TART25 MG PO; +VITAMIN D5000 UNIT PO; +ZOFRAN4 MG PO
[2017-07-23 19:49] LABS: BASOPHILS 0.1 % (0-2); EOSINOPHILS 2.2 % (0-7); HEMATOCRIT 38.6 % (36.0-48.0); HEMOGLOBIN 12.1 g/dL (12-16); IMMATURE GRANULOCYTES 0.2 % (0-5); LYMPHOCYTES 16.9 % (15-50); MCH 28.3 pg (26.0-34.0); MCHC 31.3 g/dL (31.0-37.0); MCV 90.4 fL (80.0-100.0); MEAN PLATELET VOLUME 9.6 fL (7.4-10.4); MONOCYTES 4.1 % (2-11); NEUTROPHILS 76.5 % (40-80); PLATELET COUNT 193 10x3/uL (130-400); RBC 4.27 10x6/uL (4.00-5.40); RDW 16.4 % (11.5-14.5); WBC 9.3 10x3/uL (4.8-10.8)
[2017-07-23 20:17] LABS: ALBUMIN 2.9 g/dL (3.4-5.0); ANION GAP 14.9 mmol/L (8-16); BILIRUBIN - TOTAL 0.76 mg/dL (0.2-1.3); CALCIUM 8.7 mg/dL (8.5-10.1); CARBON DIOXIDE 27.1 mmol/L (21.0-32.0); CREATININE - SERUM 2.3 mg/dL (0.6-1.3); PROTEIN - SERUM 7.1 g/dL (6.4-8.2)
[2017-07-23 21:48] LABS: APPEARANCE CLEAR (CLEAR); COLOR YELLOW (YELLOW); SPECIFIC GRAVITY 1.015 (1.005-1.020)
[2017-07-23 21:50] LABS: BILIRUBIN NEGATIVE (NEGATIVE); GLUCOSE NEGATIVE (NEGATIVE); KETONE NEGATIVE (NEGATIVE); NITRITE NEGATIVE (NEGATIVE); PH 5.5 (5.0-6.0); PROTEIN NEGATIVE (NEGATIVE); UROBILINOGEN NORMAL (NORMAL)
[2017-07-23 21:53] LABS: AMORPHOUS SEDIMENT >1+ /lpf (NONE SEEN); BACTERIA MODERATE /hpf (NONE SEEN); EPITHELIAL CELLS 0-5 /hpf (0-5); GRANULAR CAST OCC /lpf (NONE SEEN); HYALINE CAST 0-5 /lpf (NONE SEEN); MUCUS >1+ /lpf (NONE SEEN); RED CELLS - URINE 0-5 /hpf (0-5); WAXY CAST OCC /lpf (NONE SEEN)
[2017-07-24] VITALS (7 sets, daily range): BP systolic 80–101; BP diastolic 37–57; Ht 175.3 cm; Wt 53.5 kg
[2017-07-24] MEDS ORDERED: IMODIUM2 MG PO (00:23)
--- NOTE | 2017-07-24 01:30 | NUR ---
RECEIVED PT TO FLOOR FROM ER VIA WHEELCHAIR. BP 80/37. CALLED TRISTEN. RECEIVED ORDER AND ADMINISTERED 500 ML BOLUS THEN CONT IV FLUIDS AT 125 MLS/HR. SENT LOOSE STOOL SPECIMEN TO LAB FOR CULTURE AND CDT. CDT NEGATIVE AND CULTURE PENDING. REVIEWED HOME MEDS AND HISTORY. COMPLETE ASSESSMENT PER FLOW-SHEET. CONSTANT FOUL SMELL EMITTING FROM PT'S ROOM. PT SLEEPING. WILL CONTINUE TO MONITOR.
--- NOTE | 2017-07-24 07:12 | NUR ---
REPORT RECEIVED FROM SWIMMING INSTRUCTOR NURSE. CALL LIGHT IN REACH.
--- NOTE | 2017-07-24 08:05 | NUR ---
PLACED IN SHOWER PER DECOMMISSIONING WELL SITE MANAGER.
[2017-07-24 10:01] LABS: BASOPHILS 0 % (0-2); HEMATOCRIT 33.7 % (36.0-48.0); HEMOGLOBIN 10.6 g/dL (12-16); IMMATURE GRANULOCYTES 0.2 % (0-5); MCH 28.6 pg (26.0-34.0); MCHC 31.5 g/dL (31.0-37.0); MCV 91.1 fL (80.0-100.0); MEAN PLATELET VOLUME 9.8 fL (7.4-10.4); MONOCYTES 9.1 % (2-11); NEUTROPHILS 71.7 % (40-80); RDW 16.6 % (11.5-14.5)
[2017-07-24 10:06] LABS: PLATELET COUNT 149 10x3/uL (130-400); WBC 5.4 10x3/uL (4.8-10.8)
[2017-07-24 10:23] LABS: ALBUMIN 2.4 g/dL (3.4-5.0); ANION GAP 8.6 mmol/L (8-16); BILIRUBIN - TOTAL 0.5 mg/dL (0.2-1.3); CALCIUM 7.9 mg/dL (8.5-10.1); CARBON DIOXIDE 26.6 mmol/L (21.0-32.0)
[2017-07-24 10:36] LABS: POTASSIUM - SERUM 3.2 mmol/L (3.5-5.1)
--- NOTE | 2017-07-24 10:50 | NUR ---
ASSESSMENT COMPLETED. PROTONIX PO. BED ALARM TURNED ON D/T PATIENT STATING [place]. SCDs OFFERED AND PATIENT SAID YES. SPOKE WITH CENTRAL SUPPLY FOR MACHINE.
--- NOTE | 2017-07-24 12:37 | NUR ---
REQUESTING PAIN MEDS D/T PAIN OF 7. NORCO 5 MG PO. NS 500 CC IV BOLUS. CALL LIGHT IN REACH.
--- NOTE | 2017-07-24 14:20 | NUR ---
RESTING WITH EYES CLOSED. RESP EVEN AND ULABORED. CALL LIGHT IN REACH.
--- NOTE | 2017-07-24 14:47 | NUR ---
Patient Name: ROBERTH MYERS Admission Status: ER Accout number: [id number] Admission Date: 07-23-2017 : 1955 Admission Diagnosis: Attending: TODD, Current LOS: 1 Anticipated DC Date: 07-25-2017 Planned Disposition: Home Primary Insurance: [facility] Discharge Planning Comments: CM MET WITH PATIENT REGARDING D/C NEEDS AND PLANS. PATIENT STATED SHE LIVES ALONE AND HAS NO RIDE HOME AT DISCHARGE BECAUSE HER SON IS CAMPING. PATIENT WILL NEED A CAB AT DISCHARGE IF NO RIDE AVAILABLE. PATIENT STATED SHE HAS NO STEPS OR STAIRS AT HER HOME. PATIENT IS INDEPENDENT WITH HER CARE AND HAS NO DME AT HOME. PATIENT STATES HER PCP IS DR. DARNELL AND PHARMACY IS [facility]. PATIENT DOES NOT WANT HOME HEALTH AT DISCHARGE. CM WILL CONTINUE TO FOLLOW PATIENT WITH D/C NEEDS AND PLANS. PCP DR. MANN GAMBOA ON [facility]- [phone] THERESE (FRIEND) [phone] Molecular Biology Scientist: Eufemia Rosa Is the patient Alert and Oriented? Yes 0 * How many steps to enter\exit or inside your home? 0 0 * PCP DR. DARNELL 0 * Pharmacy [facility] 0 * Preadmission Environment Home Alone 0 * ADLs Independent 0 * Equipment None 0 * List name and contact numbers for known caregivers / representatives who currently or will assist patient after discharge: THERESE (FRIEND) [phone] * Community resources currently utilized None 0 * Additional services required to return to the preadmission environment? Yes 0 * Can the patient safely return to the preadmission environment? Yes 0 * Has this patient been hospitalized within the prior 30 days at any hospital? No 0 Grand Total: 0
--- NOTE | 2017-07-24 16:36 | NUR ---
CM REASSESSMENT NOTE: PATIENT IS DISCHARGING TO [facility] TODAY AT 6PM TO A SKILLED BED BY FACILITY VAN. HAS BEEN NOTIFIED AND NUMBER TO [facility] WAS GIVEN TO HER.
--- NOTE | 2017-07-24 16:54 | NUR ---
NO NEEDS VOICED AT THIS TIME. CALL LIGHTIN KRISSY.
--- NOTE | 2017-07-24 18:42 | NUR ---
STATES SHE HAS NOT VOIDED ALL DAY. EMMA HOOK. WAITING DIRECTOR [employer] BACK. NO CHANGES IN INITIAL ASSESSMENT. CALL LIGHT IN REACH. WILL CONTINUE WITH PLAN OF CARE.
--- NOTE | 2017-07-24 19:59 | NUR ---
PT HERE FOR COLITIS FOR THIS VISIT PT DENIES NEEDS AT THIS TIME IV TO RIGHT AC PATENT AND INTACT AT THIS TIME SRX2 BED AT LOWEST SETTING CALL LIGHT WITHIN REACH WITHIN REACH WILL CONTINUE TO MONITOR
--- NOTE | 2017-07-24 23:30 | NUR ---
STARTED IV TO RIGHT FOREARM, 22G X'S 1 ATTEMPT. PATIENT TOLERATED WELL.
[2017-07-25] VITALS: BP 110/60
[2017-07-25 06:16] LABS: BASOPHILS 0.3 % (0-2); EOSINOPHILS 3.4 % (0-7); HEMOGLOBIN 9.8 g/dL (12-16); LYMPHOCYTES 48.8 % (15-50); MCH 28.7 pg (26.0-34.0); MCHC 31.6 g/dL (31.0-37.0); MCV 90.9 fL (80.0-100.0); MEAN PLATELET VOLUME 9.8 fL (7.4-10.4); MONOCYTES 9.5 % (2-11); PLATELET COUNT 121 10x3/uL (130-400); RBC 3.41 10x6/uL (4.00-5.40); RDW 16.8 % (11.5-14.5)
[2017-07-25 06:23] LABS: WBC 3.3 10x3/uL (4.8-10.8)
[2017-07-25 06:29] LABS: ANION GAP 11.6 mmol/L (8-16); BILIRUBIN - TOTAL 0.3 mg/dL (0.2-1.3); CALCIUM 8.2 mg/dL (8.5-10.1); CARBON DIOXIDE 24.9 mmol/L (21.0-32.0); CREATININE - SERUM 1.8 mg/dL (0.6-1.3); POTASSIUM - SERUM 3.5 mmol/L (3.5-5.1); PROTEIN - SERUM 5.6 g/dL (6.4-8.2)
--- NOTE | 2017-07-25 07:23 | NUR ---
REPORT RECEIVED FROM CLOTH TESTER NURSE. CALL LIGHT IN REACH.
--- NOTE | 2017-07-25 07:39 | NUR ---
C/O PAIN OF 5. NORCO PO. CALL LIGHT IN REACH.
--- NOTE | 2017-07-25 07:51 | NUR ---
1999)DECLINED BLADDER SCAN OR CATH. STATES HAS HAD THIS PROMBLEMS FOR SEVERAL YEARS.AND WAS UNDER CARE OF DR MYERS AT THIS TIME.VOIDED 350CC SL. CLOUDY URINE AND AGAIN AT 0430 CLEAN CATCH DONE AND SENT TO LAB STATES FEELS EMPTIED OUT WHEN VOIDED
--- NOTE | 2017-07-25 09:32 | NUR ---
ASSESSMENT COMPLETED. CALL LIGHT IN REACH. SCDs APPLIED TO BLE. WILL CONTINUE WITH PLAN OF CARE.
--- NOTE | 2017-07-25 11:25 | NUR ---
SHARRICO PO PER C/O PAIN. CALL LIGHT IN REACH.
--- NOTE | 2017-07-25 13:35 | NUR ---
RESTING WITH EYES CLOSED. RESP EVEN AND UNLABORED. CALL LIGHT IN REACH.
--- NOTE | 2017-07-25 14:30 | NUR ---
DENIES NEEDS AT THIS TIME. CALL LIGHT IN REACH.
--- NOTE | 2017-07-25 16:11 | NUR ---
PT HERE FOR COLITIS FOR THIS VISIT IV PATENT AND INTACT AT THIS TIME PT DENIES NEEDS AT THIS TIME SRX2 BED AT LOWEST SETTING CALL LIGHT WITHIN REACH WILL COTNINUE TO MONITOR
--- NOTE | 2017-07-25 18:52 | NUR ---
C/O PAIN OF 8 TO ABDOMEN. NORCO ADMINISTERED PER HAYES BRIONES. NO OTHER CHANGES IN INITIAL ASSESSMENT. CALL LIGHT IN REACH. SCDs TO BLE. WILL CONTINUE WITH PLAN OF CARE. BED ALARM ON.
[2017-07-25 20:00] VITALS: BP 116/60
--- NOTE | 2017-07-26 01:44 | NUR ---
PATIENT RESTING WITH EYES CLOSED AND NO VISIBLE SIGNS OF DISTRESS. BED IN LOWEST POSITION AND CALL LIGHT WITHIN REACH.
[2017-07-26 04:00] VITALS: BP 121/72
[2017-07-26 06:02] LABS: BASOPHILS 0.4 % (0-2); EOSINOPHILS 1.4 % (0-7); HEMATOCRIT 29.1 % (36.0-48.0); HEMOGLOBIN 9.1 g/dL (12-16); IMMATURE GRANULOCYTES 0.4 % (0-5); LYMPHOCYTES 32.7 % (15-50); MCH 27.7 pg (26.0-34.0); MCHC 31.3 g/dL (31.0-37.0); MCV 88.7 fL (80.0-100.0); MEAN PLATELET VOLUME 9.8 fL (7.4-10.4); MONOCYTES 11.2 % (2-11); NEUTROPHILS 53.9 % (40-80); PLATELET COUNT 102 10x3/uL (130-400); RBC 3.28 10x6/uL (4.00-5.40); RDW 16.6 % (11.5-14.5); WBC 2.8 10x3/uL (4.8-10.8)
[2017-07-26 06:50] LABS: ALBUMIN 2.1 g/dL (3.4-5.0); ANION GAP 11.9 mmol/L (8-16); BILIRUBIN - TOTAL 0.27 mg/dL (0.2-1.3); CALCIUM 7.8 mg/dL (8.5-10.1); CARBON DIOXIDE 24.2 mmol/L (21.0-32.0); POTASSIUM - SERUM 3.1 mmol/L (3.5-5.1); PROTEIN - SERUM 5.7 g/dL (6.4-8.2)
[2017-07-26 06:55] LABS: CREATININE - SERUM 1.2 mg/dL (0.6-1.3)
--- NOTE | 2017-07-26 07:20 | NUR ---
REPORT RECEIVED FROM SURVEY DIRECTOR NURSE. CALL LIGHT IN REACH.
[2017-07-26 07:50] VITALS: BP 135/75
--- NOTE | 2017-07-26 08:34 | NUR ---
ASSESSMENT COMPLETED. SCDs TO BLE. CALL LIGHT IN REACH. WILL CONTINUE WITH PLAN OF CARE.
--- NOTE | 2017-07-26 09:10 | NUR ---
STATES PAIN IS A 9. JACKSON PO. CALL LIGHT IN REACH.
[2017-07-26] MEDS ORDERED: FLAGYL500 MG PO (09:54)
[2017-07-26] MEDS ORDERED: LEVAQUIN500 MG PO (09:54)
[2017-07-26] MEDS ORDERED: FLORAJEN3 CAPS460 MG PO (09:56)
[2017-07-26] MEDS ORDERED: HYDROCODON-ACE1 EAC7 PO (10:04)
--- NOTE | 2017-07-26 10:16 | NUR ---
CM REASSESSMENT NOTE: PATIENT IS DISCHARGING HOME TODAY/FRIEND IS DRIVING HER HOME. PATIENT DENIES HOME HEALTH OR ANY OTHER NEEDS FOR DISCHARGE. IMM SERVED
--- NOTE | 2017-07-26 10:46 | NUR ---
IV DC'D WITH TIP INTACT.
--- NOTE | 2017-07-26 11:33 | NUR ---
PATIENT SITTING UP IN WAITING TO BE TAKEN DOWN TO PRIVATE VEHICLE. NO COMPLAINTS AT THIS TIME. BEING DISCHARGED. FAMILY AT SIDE. BEARDEN BULKHEAD CARPENTER TO TAKE PATIENT DOWN TO CAR.
--- NOTE | 2017-07-26 11:50 | NUR ---
DC'D TO VEHICLE VIA WC.
[2017-10-09] MEDS ORDERED: VITAMIN D31000 UNI2 PO (10:33)
[2017-10-09] MEDS ORDERED: PROLIA INJ 660 MG/M1 IJ (10:34)
[2017-10-09] MEDS ORDERED: DEXILANT60 MG PO (10:35)
[2017-10-09] MEDS ORDERED: VOLTAREN100 GM TOPICAL (10:35)
== END 2017-07-26 11:50 | disposition home or self-care (01) | DRG 389 ==
LOC: D.ER 19:23 → D.MS 22:57 → D.SDCHOLD 07-25 17:30 → D.MS 07-25 17:56
PROVIDERS: Family Medicine; Physician Assistant; ADMIT Family Medicine
DX: K56.7 Ileus, unspecified (principal); N17.9 Acute kidney failure, unspecified; B19.10 Unspecified viral hepatitis B without hepatic coma; Z68.1 Body mass index [BMI] 19.9 or less, adult; K52.9 Noninfective gastroenteritis and colitis, unspecified; I48.91 Unspecified atrial fibrillation; J44.9 Chronic obstructive pulmonary disease, unspecified; R63.6 Underweight

== ENCOUNTER 2017-10-10 06:11 | Outpatient (CLI) | payer MEDICARE, MEDICAID ==
[2017-10-09 11:13] LABS: BASOPHILS 0.2 % (0-2); EOSINOPHILS 3.8 % (0-7); HEMATOCRIT 37.4 % (36.0-48.0); HEMOGLOBIN 11.9 g/dL (12-16); IMMATURE GRANULOCYTES 0.2 % (0-5); LYMPHOCYTES 29.3 % (15-50); MCH 30.5 pg (26.0-34.0); MCHC 31.8 g/dL (31.0-37.0); MCV 95.9 fL (80.0-100.0); MEAN PLATELET VOLUME 9.2 fL (7.4-10.4); MONOCYTES 7.2 % (2-11); NEUTROPHILS 59.3 % (40-80); PLATELET COUNT 116 10x3/uL (130-400); RDW 16.1 % (11.5-14.5); WBC 5.3 10x3/uL (4.8-10.8)
[2017-10-09 11:22] LABS: APTT 28.3 SECONDS (22.8-39.4); INR 0.97 (0.85-1.17); PROTIME 12.5 SECONDS (11.6-15.0)
[2017-10-09 11:40] LABS: ALBUMIN 3.3 g/dL (3.4-5.0); ANION GAP 7.8 mmol/L (8-16); BILIRUBIN - TOTAL 0.42 mg/dL (0.2-1.3); CALCIUM 8.6 mg/dL (8.5-10.1); CARBON DIOXIDE 31.8 mmol/L (21.0-32.0); POTASSIUM - SERUM 3.6 mmol/L (3.5-5.1); PROTEIN - SERUM 7.3 g/dL (6.4-8.2)
[~2017-10-10] VITALS: Ht 160 cm; Wt 63.6 kg
[~2017-10-10 06:11] MED LIST changes: +FLORAJEN3 CAPS460 MG PO; +HYDROCODON-ACE1 EAC7 PO; +IMODIUM2 MG PO; +LEVAQUIN500 MG PO; +PROLIA INJ 660 MG/M1 IJ; +VITAMIN D31000 UNI2 PO; +VOLTAREN100 GM TOPICAL
[2017-10-10 09:33] VITALS: BP 101/68; Ht 160 cm; Wt 63.6 kg
--- NOTE | 2017-10-10 10:18 | NUR ---
DR. BARBER CANCELED SURGERY D/T PT NEW ONSET OF RASH. PT GIVEN D/C PAPERS AND TOLD TO CALL OFFICE FOR RESCEDULING OF HER PROCEDURE.
== END 2017-10-10 10:21 | disposition home or self-care (01) ==
LOC: D.OPS 06:11 → EDSTATUS 09:45 → D.OPS 10:00
PROVIDERS: Anesthesiology; Surgery
DX: K43.9 Ventral hernia without obstruction or gangrene (principal); Z53.09 Procedure and treatment not carried out because of other contraindication; Z01.812 Encounter for preprocedural laboratory examination

== ENCOUNTER 2017-12-09 14:13 | Emergency (ER) | payer MEDICARE, MEDICAID ==
[2017-10-10 09:33] VITALS: BMI 24.8
[2017-12-09 14:46] LABS: BASOPHILS 0.2 % (0-2); EOSINOPHILS 3.2 % (0-7); HEMATOCRIT 36.8 % (36.0-48.0); HEMOGLOBIN 11.7 g/dL (12-16); IMMATURE GRANULOCYTES 0.5 % (0-5); LYMPHOCYTES 39.2 % (15-50); MCH 30.2 pg (26.0-34.0); MCHC 31.8 g/dL (31.0-37.0); MCV 94.8 fL (80.0-100.0); MEAN PLATELET VOLUME 9.3 fL (7.4-10.4); NEUTROPHILS 47.9 % (40-80); PLATELET COUNT 122 10x3/uL (130-400); RBC 3.88 10x6/uL (4.00-5.40); RDW 14.3 % (11.5-14.5)
[2017-12-09 15:11] LABS: ALKALINE PHOSPHATASE 91 U/L (46-116); ALT (SGPT) 31 U/L (10-68); BILIRUBIN - TOTAL 0.21 mg/dL (0.2-1.3); CALC OSMOLALITY 284 mosm/kg (275-300); CALCIUM 9.4 mg/dL (8.5-10.1); CHLORIDE - SERUM 104 mmol/L (98-107); GLUCOSE 105 mg/dL (74-106); POTASSIUM - SERUM 3.8 mmol/L (3.5-5.1); PROTEIN - SERUM 7.3 g/dL (6.4-8.2); SODIUM 142 mmol/L (136-145); UREA NITROGEN 18 mg/dL (7-18); eGFR NON AFRICAN AMERICAN 60 mL/min (90-120)
[2017-12-09 15:20] LABS: CHOL - HDL RATIO 3.2 ratio (2.3-4.1); CHOLESTEROL, TOTAL 146 mg/dL (0-200); CKMB 2.1 U/L (0.0-3.6); CREATINE KINASE 78 UL (21-215); HDL CHOLESTEROL 45 mg/dL (32-96); LDL CHOLESTEROL 67 mg/dL (0-100); LDL-HDL RATIO 1.5 ratio (1.5-3.5); TRIGLYCERIDE 170 mg/dL (30-200)
[2017-12-09 15:21] LABS: TROPONIN-I < 0.017 ng/mL (0.000-0.060)
[2017-12-09 15:50] LABS: APPEARANCE CLOUDY (CLEAR); BILIRUBIN NEGATIVE (NEGATIVE); COLOR YELLOW (YELLOW); GLUCOSE NEGATIVE (NEGATIVE); KETONE NEGATIVE (NEGATIVE); NITRITE NEGATIVE (NEGATIVE); PROTEIN NEGATIVE (NEGATIVE); SPECIFIC GRAVITY 1.015 (1.005-1.020); UROBILINOGEN NORMAL (NORMAL)
[2017-12-09 15:54] LABS: BACTERIA MANY /hpf (NONE SEEN); EPITHELIAL CELLS OCC /hpf (0-5); MUCUS <1+ /lpf (NONE SEEN); RED CELLS - URINE 0-5 /hpf (0-5); WHITE CELLS - URINE 25-50 /hpf (0-5)
== END 2017-12-09 18:39 | disposition home or self-care (01) ==
LOC: D.ER 14:13
PROVIDERS: Emergency Medicine
DX: K52.9 Noninfective gastroenteritis and colitis, unspecified (principal); J44.9 Chronic obstructive pulmonary disease, unspecified; F17.200 Nicotine dependence, unspecified, uncomplicated

== ENCOUNTER 2018-05-03 08:00 | Day surgery (SDC) | payer MEDICARE, MEDICAID ==
[2018-05-02 13:26] LABS: ANION GAP 9.6 mmol/L (8-16); CALCIUM 9.3 mg/dL (8.5-10.1); CARBON DIOXIDE 30.2 mmol/L (21.0-32.0); CREATININE - SERUM 0.9 mg/dL (0.6-1.3); POTASSIUM - SERUM 3.8 mmol/L (3.5-5.1)
[2018-05-02 13:40] LABS: BASOPHILS 0.2 % (0-2); HEMATOCRIT 38.8 % (36.0-48.0); HEMOGLOBIN 12.5 g/dL (12-16); IMMATURE GRANULOCYTES 0.2 % (0-5); LYMPHOCYTES 40.1 % (15-50); MCHC 32.2 g/dL (31.0-37.0); MCV 93.3 fL (80.0-100.0); MEAN PLATELET VOLUME 9.6 fL (7.4-10.4); MONOCYTES 7.9 % (2-11); NEUTROPHILS 48.6 % (40-80); PLATELET COUNT 130 10x3/uL (130-400); RBC 4.16 10x6/uL (4.00-5.40); RDW 15.3 % (11.5-14.5); WBC 4.7 10x3/uL (4.8-10.8)
[~2018-05-03] VITALS: Ht 167.6 cm; Wt 54.4 kg
--- NOTE | ~2018-05-03 | OP ---
PATIENT NAME: ROBERTH MYERS MEDICAL RECORD: [id number] :57 LOCATION:D.OPS ADMISSION DATE: SURGEON: IGNACIO BARBER MD DATE OF OPERATION: 05/03/2018 PREOPERATIVE DIAGNOSES: 1. Ventral epigastric incisional hernia. 2. COPD. 3. Tobacco dependence syndrome. 4. Hepatitis B. POSTOPERATIVE DIAGNOSES: 1. Ventral epigastric incisional hernia. 2. COPD. 3. Tobacco dependence syndrome. 4. Hepatitis B. PROCEDURE: Epigastric ventral incisional hernia repair with 4.3-cm Proceed mesh. SURGEON: Ignacio Barber MD REPORT OF PROCEDURE: The patient's abdomen was prepped and draped in sterile fashion. A cutdown was made in the midline in the epigastrium. Electrocautery was used to dissect through the subcutaneous tissues and we eventually found what appeared to be 2 small hernia defects at the most superior portion of a midline abdominal incision. There was a small fascial bridge between these 2 and this was opened up. The total defect was a little over 2.5 cm in size. The subcutaneous fatty attachments were released in all directions and then we released the attachments on the top side of the fascia. We then placed a 4.3-cm Proceed mesh in the subfascial plane and sutured it down on all sides using interrupted #0 Nurolons. The midline fascia was then reapproximated with running #0 Vicryl. The wounds were then irrigated out with normal saline and any bleeding was treated with electrocautery. A total of 20 mL of 0.25% Marcaine with epinephrine was infused into the surrounding tissues. The subcutaneous tissues were then reapproximated with interrupted 3-0 Vicryl and the skin was closed with running subcutaneous 5-0 Monocryl. COMPLICATIONS: None. CONDITION: Stable. ANESTHESIA: General endotracheal and local. BLOOD LOSS: 30 mL. TRANSINT:[id number] Voice Confirmation ID: [id number] DOCUMENT ID: [id number] OPERATIVE REPORT [id number] ROBERTH MYERS IGNACIO BARBER MD at 1418 CC: [id number] DICTATION DATE: 05/03/18 1101 MECHANICAL APPRENTICE: 05/03/18 1221 [facility] 05/03/18 [place] [address]
[~2018-05-03 08:00] MED LIST changes: +BACLOFEN10 MG PO
[2018-05-03 08:25] VITALS: BP 111/69; BMI 19.4
[2018-05-03 08:35] VITALS: BP 111/69; Ht 167.6 cm; Wt 54.4 kg
[2018-05-03] MEDS ORDERED: MEPERIDINE HCL50 MG PO (10:57)
== END 2018-05-03 14:30 | disposition home or self-care (01) ==
LOC: D.OPS 08:00
PROVIDERS: Surgery
DX: K43.9 Ventral hernia without obstruction or gangrene (principal); J44.9 Chronic obstructive pulmonary disease, unspecified; F17.200 Nicotine dependence, unspecified, uncomplicated; B19.10 Unspecified viral hepatitis B without hepatic coma; Z01.812 Encounter for preprocedural laboratory examination

== ENCOUNTER 2018-05-20 04:15 | Emergency (ER) | payer MEDICARE, MEDICAID ==
[~2018-05-20] VITALS: Ht 167.6 cm; Wt 68.2 kg
[~2018-05-20 04:15] MED LIST changes: +MEPERIDINE HCL50 MG PO
[2018-05-20 04:18] VITALS: Ht 167.6 cm; Wt 68.2 kg
[2018-05-20 05:04] LABS: ALBUMIN 3.1 g/dL (3.4-5.0); ANION GAP 17.9 mmol/L (8-16); BASOPHILS 0.3 % (0-2); BILIRUBIN - TOTAL 1.23 mg/dL (0.2-1.3); CARBON DIOXIDE 21.4 mmol/L (21.0-32.0); CREATININE - SERUM 1.3 mg/dL (0.6-1.3); EOSINOPHILS 3.4 % (0-7); HEMOGLOBIN 10.8 g/dL (12-16); IMMATURE GRANULOCYTES 0.5 % (0-5); LYMPHOCYTES 33.6 % (15-50); MCH 29.9 pg (26.0-34.0); MCHC 32.7 g/dL (31.0-37.0); MCV 91.4 fL (80.0-100.0); MONOCYTES 9.1 % (2-11); NEUTROPHILS 53.1 % (40-80); POTASSIUM - SERUM 3.3 mmol/L (3.5-5.1); PROTEIN - SERUM 7.4 g/dL (6.4-8.2); RBC 3.61 10x6/uL (4.00-5.40); RDW 14.9 % (11.5-14.5); WBC 6.1 10x3/uL (4.8-10.8)
[2018-05-20 05:11] LABS: PLATELET COUNT 171 10x3/uL (130-400)
[2018-05-20 05:24] LABS: APPEARANCE CLEAR (CLEAR); BILIRUBIN NEGATIVE (NEGATIVE); COLOR YELLOW (YELLOW); GLUCOSE NEGATIVE (NEGATIVE); KETONE NEGATIVE (NEGATIVE); NITRITE NEGATIVE (NEGATIVE); PROTEIN NEGATIVE (NEGATIVE); SPECIFIC GRAVITY 1.015 (1.005-1.020); UROBILINOGEN NORMAL (NORMAL)
[2018-05-20 05:25] LABS: UDS - AMPHET POSITIVE QUAL (NEGATIVE); UDS - BARB NEGATIVE QUAL (NEGATIVE); UDS - BENZO NEGATIVE QUAL (NEGATIVE); UDS - COCAINE NEGATIVE QUAL (NEGATIVE); UDS - OPIATE POSITIVE QUAL (NEGATIVE); UDS - PCP NEGATIVE QUAL (NEGATIVE); UDS - THC NEGATIVE QUAL (NEGATIVE)
[2018-05-20 08:40] LABS: HCG SERUM NEGATIVE (NEGATIVE)
[2018-05-20 17:51] VITALS: BP 118/58
== END 2018-05-20 17:54 | disposition home or self-care (01) ==
LOC: D.ER 04:15
PROVIDERS: Emergency Medicine; Family Medicine
DX: F15.10 Other stimulant abuse, uncomplicated (principal); N19 Unspecified kidney failure; E86.0 Dehydration; F22 Delusional disorders; J44.9 Chronic obstructive pulmonary disease, unspecified; Z86.19 Personal history of other infectious and parasitic diseases; F17.200 Nicotine dependence, unspecified, uncomplicated

== ENCOUNTER 2018-09-15 15:11 | Emergency (ER) | payer MEDICARE, MEDICAID ==
[~2018-09-15] VITALS: Ht 167.6 cm; Wt 58.2 kg
[2018-09-15 15:39] VITALS: Ht 167.6 cm; Wt 58.2 kg
[2018-09-15] MEDS ORDERED: NORCO 10-325 TA1 TAB PO (17:33)
[2018-09-15] MEDS ORDERED: BACLOFEN20 M1 PO (17:33)
[2018-09-15 18:00] VITALS: BP 102/57
== END 2018-09-15 18:00 | disposition home or self-care (01) ==
LOC: D.ER 15:11
DX: K43.2 Incisional hernia without obstruction or gangrene (principal); Z86.19 Personal history of other infectious and parasitic diseases; J44.9 Chronic obstructive pulmonary disease, unspecified; F17.200 Nicotine dependence, unspecified, uncomplicated

== ENCOUNTER 2018-09-17 09:03 | Inpatient (IN) | payer MEDICARE, MEDICAID ==
[~2018-09-17] VITALS: Ht 167.6 cm; Wt 59.6 kg
--- NOTE | ~2018-09-17 | MORECARE ---
CASE MANAGEMENT DISCHARGE SUMMARY PATIENT: ROBERTH MYERS UNIT: [id number] ADM DATE: 09/17/18 AGE: 63 : 57 SEX: F ROOM/BED: D.3956 AUTHOR: CUAUHTEMOCDOC PHYSICIAN: REFERRING PHYSICIAN: JODI BHATT DO DATE OF SERVICE: 09/20/18 Discharge Plan Patient Name: ROBERTH MYERS Facility: [facility]:[place] : 1955 Planned Disposition: Home Anticipated Discharge Date: 09/20/18 Discharge Date: 09/20/2018 Expected LOS: 3 Initial Reviewer: [email or web address] Initial Review Date: 09/20/2018 Generated: 09/20/18 5:41 pm Comments DCP- Discharge Planning Updated by [email or web address]: Felix Villegas on 09/20/18 3:[address] Patient Name: ROBERTH MYERS Admission Status: ER Accout number: [id number] Admission Date: 09-17-2018 : 1955 Admission Diagnosis:UNSPECIFIED ABDOMINAL PAIN Attending: JODI BHATT Current LOS: 3 Anticipated DC Date: 09-20-2018 Planned Disposition: Home Primary Insurance: [facility] MEDIC[employer] SOLUTIONS Discharge Planning Comments: CM MET WITH PT AND SON IN ROOM TO DISCUSS DISCHARGE PLANNING AND NEEDS. ROBERTH MYERS provided verbal consent to discuss current and ongoing needs with/in the presence of: SONPAUL AND HER UNNAMED BOYFRIEND WHO WAS ALSO IN THE ROOM. PT REPORTS LIVING AT HOME INDEPENDENTLY WITH HER BOYFRIEND. PT HAS NO MEDICAL EQUIPMENT AND NO OUTSIDE SERVICES ASSISTING IN THE HOME. CM DISCUSSED AVAILABILITY OF HOME HEALTH, REHAB SERVICES AND MEDICAL EQUIPMENT. PT DENIES DISCHARGE NEEDS, REPORTS HER SON IS WORKING ON TRANSPORTATION HOME TODAY. IMPORTANT MESSAGE FROM MEDICARE PROVIDED AND EXPLAINED. CM NOTIFIED PORTABLE IRRIGATION OPERATOR NURSE. CM RECEIVED REQUEST FROM BEDSIDE NURSE TO SPEAK TO PT SHE IS REPORTING NEEDING A RIDE HOME. CM MET WITH PT AND SON IN ROOM. PT REPORTS SHE HAS USED MEDICAID TRANSPORTATION AND WOULD LIKE TO CALL MEDICAID AND ARRANGE TRANSPORTATION FOR SHE AND HER SON TO GO TO [address] [place] [address], WHERE PT LIVES. PT REPORTS HER BOYFRIEND WILL BE TAKING A CITY BUS HOME. CM CALLED MEDICAID TRANSPORTATION, , SPOKE TO GENNA WHO INFORMED CM THAT PT IS REGISTERED IN [facility] AND UNTIL PT CHANGES THIS AT THE [facility] OFFICE, PT CANNOT BE SET UP WITH ANY MEDICAID TRANSPORT. CM NOTIFIED PT AND PT'S SON REPORTS THAT THE SON'S BOSS IS ON THE WAY FROM [place] TO PICK THEM UP. BEDSIDE NURSE NOTIFIED. NO FURTHER NEEDS IDENTIFIED. Seam Hammerer: Felix Villegas DCPIA - Discharge Planning Initial Assessment Updated by [email or web address]: Felix Villegas on 09/20/18 4:21 pm * Is the patient Alert and Oriented? Yes * How many steps to enter\exit or inside your home? * PCP NONE; HAS [facility] APPOINTMENT 09-22-18 FOR POSSIBLE PRIMARY CARE. * Pharmacy [facility] [place] * Preadmission Environment Home with Family * ADLs Independent * Equipment None * Other Equipment NO MEDICAL EQUIPMENT PROVIDER PREFERENCE * List name and contact numbers for known caregivers / representatives who currently or will assist patient after discharge: RAJESH BRAY, EX SPOUSE, PAUL BRAY, SON, * Verbal permission to speak to the caregivers and representatives has been obtained from the patient. Yes * Community resources currently utilized None * Please name any agencies selected above. NONE * Additional services required to return to the preadmission environment? No * Can the patient safely return to the preadmission environment? Yes * Has this patient been hospitalized within the prior 30 days at any hospital? No Coverage Notice Reviewer: [email or web address] - Felix Villegas Notice Issued Date-Time: 09/20/2018 14:00 Notice Type: IM Discharge Notice Notice Delivered To: Patient Relationship to Patient: Buffer Chrome Name: Delivery Method: HAND - Hand Delivered Anny Days: Prior Verbal Notification: Recipient Understood Notice: Yes Recipient Signature: Yes Med Rec Note Co-signed by Attending: Coverage Notice Comment: Last DP export: 09/20/18 3:29 Patient Name: ROBERTH MYERS Page [phone] at 1641 All edits/amendments must be made on the electronic document DICTATION DATE: 09/20/18 1640 DRILL RIG OPERATOR: LEONIDES 09/20/18 1640 RPT#: [id number] DC DATE:09/20/18 STATUS: DIS IN [address] [place] [address] END OF REPORT
--- NOTE | ~2018-09-17 | MORECARE ---
CASE MANAGEMENT DISCHARGE SUMMARY PATIENT: ROBERTH MYERS BAIR[place] UNIT: [id number] ADM DATE: 09/17/18 AGE: 63 : 57 SEX: F ROOM/BED: D.8028 AUTHOR: JORDAN POSADAS PHYSICIAN: REFERRING PHYSICIAN: JODI BHATT DO DATE OF SERVICE: 09/20/18 Discharge Plan Patient Name: ROBERTH MYERS [facility] 1955 Planned Disposition: Home Anticipated Discharge Date: 09/20/18 Discharge Date: 09/20/2018 Expected LOS: 3 Initial Reviewer: [email or web address] Initial Review Date: 09/20/2018 Generated: 09/20/18 5:29 pm DCPIA - Discharge Planning Initial Assessment Updated by [email or web address]: Felix Villegas on 09/20/18 4:21 pm * Is the patient Alert and Oriented? Yes * How many steps to enter\exit or inside your home? * PCP NONE; HAS [facility] APPOINTMENT 09-22-18 FOR POSSIBLE PRIMARY CARE. * Pharmacy [facility] [place] * Preadmission Environment Home with Family * ADLs Independent * Equipment None * Other Equipment NO MEDICAL EQUIPMENT PROVIDER PREFERENCE * List name and contact numbers for known caregivers / representatives who currently or will assist patient after discharge: RAJESH BRAY, EX SPOUSE, PAUL BRAY, SON, * Verbal permission to speak to the caregivers and representatives has been obtained from the patient. Yes * Community resources currently utilized None * Please name any agencies selected above. NONE * Additional services required to return to the preadmission environment? No * Can the patient safely return to the preadmission environment? Yes * Has this patient been hospitalized within the prior 30 days at any hospital? No Last DP export: 09/20/18 3:20 Patient Name: ROBERTH MYERS Page 17046 at 7910 All edits/amendments must be made on the electronic document DICTATION DATE: 09/20/181627 VEST BUSHELER: LEONIDES 09/20/181627 RPT#: [id number] DC DATE:09/20/18 STATUS: DIS IN [facility] [address] [place] [address] END OF REPORT
--- NOTE | ~2018-09-17 | MORECARE ---
CASE MANAGEMENT DISCHARGE SUMMARY PATIENT: ROBERTH MYERS BAIRON UNIT: [id number] ADM DATE: 09/17/18 AGE: 63 : 57 SEX: F ROOM/BED: D.2138 AUTHOR: JORDAN POSADAS PHYSICIAN: REFERRING PHYSICIAN: JODI BHATT DO DATE OF SERVICE: 09/20/18 Discharge Plan Patient Name: ROBERTH MYERS [facility] [facility] 1955 Planned Disposition: Home Anticipated Discharge Date: 09/20/18 Discharge Date: 09/20/2018 Expected LOS: 3 Initial Reviewer: [email or web address] Initial Review Date: 09/20/2018 Generated: 09/20/18 5:20 pm Patient Name: ROBERTH MYERS Page [id number] at 1620 All edits/amendments must be made on the electronic document DICTATION DATE: 09/20/18 162 RAW JUICE WEIGHER: LEONIDES 09/20/18 1620 RPT#: [id number] DC DATE:09/20/18 STATUS: DIS IN [facility] [address] [place] [address] END OF REPORT
[~2018-09-17 09:03] MED LIST changes: +BACLOFEN20 M1 PO; +NORCO 10-325 TA1 TAB PO
[2018-09-17] MEDS ORDERED: METOPROLOL TART25 MG PO (09:20)
[2018-09-17] MEDS ORDERED: KLONOPIN1 MG PO (09:20)
[2018-09-17 09:42] LABS: BASOPHILS 0.4 % (0-2); EOSINOPHILS 3.6 % (0-7); HEMATOCRIT 36.8 % (36.0-48.0); HEMOGLOBIN 11.7 g/dL (12-16); IMMATURE GRANULOCYTES 0.4 % (0-5); LYMPHOCYTES 29.1 % (15-50); MCH 30.4 pg (26.0-34.0); MCHC 31.8 g/dL (31.0-37.0); MCV 95.6 fL (80.0-100.0); MEAN PLATELET VOLUME 9.2 fL (7.4-10.4); MONOCYTES 9.2 % (2-11); NEUTROPHILS 57.3 % (40-80); PLATELET COUNT 165 10x3/uL (130-400); RBC 3.85 10x6/uL (4.00-5.40); RDW 14.6 % (11.5-14.5); WBC 5.6 10x3/uL (4.8-10.8)
[2018-09-17 09:56] LABS: UDS - AMPHET NEGATIVE QUAL (NEGATIVE); UDS - BARB NEGATIVE QUAL (NEGATIVE); UDS - BENZO NEGATIVE QUAL (NEGATIVE); UDS - COCAINE NEGATIVE QUAL (NEGATIVE); UDS - OPIATE POSITIVE QUAL (NEGATIVE); UDS - PCP NEGATIVE QUAL (NEGATIVE); UDS - THC NEGATIVE QUAL (NEGATIVE)
[2018-09-17 09:56] LABS: ANION GAP 7.8 mmol/L (8-16); BILIRUBIN - TOTAL 0.42 mg/dL (0.2-1.3); CALCIUM 9.6 mg/dL (8.5-10.1); CARBON DIOXIDE 31.1 mmol/L (21.0-32.0); CREATININE - SERUM 0.9 mg/dL (0.6-1.3); POTASSIUM - SERUM 3.9 mmol/L (3.5-5.1); PROTEIN - SERUM 7.8 g/dL (6.4-8.2)
[2018-09-17 10:19] LABS: APPEARANCE CLEAR (CLEAR); BILIRUBIN NEGATIVE (NEGATIVE); COLOR YELLOW (YELLOW); GLUCOSE NEGATIVE (NEGATIVE); KETONE NEGATIVE (NEGATIVE); NITRITE POSITIVE (NEGATIVE); PROTEIN NEGATIVE (NEGATIVE); UROBILINOGEN NORMAL (NORMAL)
[2018-09-17 10:20] LABS: BACTERIA MANY /hpf (NONE SEEN); EPITHELIAL CELLS RARE /hpf (0-5); HYALINE CAST RARE /lpf (NONE SEEN); MUCUS <1+ /lpf (NONE SEEN); WHITE CELLS - URINE OCC /hpf (0-5)
[2018-09-17 10:30] VITALS: BP 109/73
[2018-09-17 12:30] VITALS: BP 96/46
[2018-09-17] MEDS ORDERED: [UNRECOGNIZED DRUG - OTHER] IH (13:46)
[2018-09-17] MEDS ORDERED: ALBUTEROL IH (13:46)
[2018-09-17 16:03] VITALS: BP 90/42
[2018-09-17 17:39] VITALS: BP 102/57
[2018-09-17 17:46] LABS: LDL-HDL RATIO 1.7 ratio (1.5-3.5)
[2018-09-17 19:00] VITALS: BP 98/57
[2018-09-18 00:45] VITALS: BP 111/65
[2018-09-18 04:57] VITALS: BP 115/65
[2018-09-18 06:19] LABS: BASOPHILS 0.3 % (0-2); EOSINOPHILS 3.1 % (0-7); HEMATOCRIT 31.1 % (36.0-48.0); HEMOGLOBIN 9.8 g/dL (12-16); IMMATURE GRANULOCYTES 0.3 % (0-5); LYMPHOCYTES 45.2 % (15-50); MCHC 31.5 g/dL (31.0-37.0); MCV 95.1 fL (80.0-100.0); MEAN PLATELET VOLUME 9.1 fL (7.4-10.4); MONOCYTES 11.5 % (2-11); NEUTROPHILS 39.6 % (40-80); PLATELET COUNT 133 10x3/uL (130-400); RBC 3.27 10x6/uL (4.00-5.40); RDW 14.5 % (11.5-14.5)
[2018-09-18 06:52] LABS: ALBUMIN 2.3 g/dL (3.4-5.0); ALKALINE PHOSPHATASE 66 U/L (46-116); ALT (SGPT) 38 U/L (10-68); BILIRUBIN - TOTAL 0.39 mg/dL (0.2-1.3); CALC OSMOLALITY 279 mosm/kg (275-300); CALCIUM 7.8 mg/dL (8.5-10.1); CARBON DIOXIDE 24.3 mmol/L (21.0-32.0); CHLORIDE - SERUM 108 mmol/L (98-107); CREATININE - SERUM 0.7 mg/dL (0.6-1.3); GLUCOSE 76 mg/dL (74-106); LIPASE 263 U/L (73-393); POTASSIUM - SERUM 3.6 mmol/L (3.5-5.1); PROTEIN - SERUM 6.2 g/dL (6.4-8.2); SODIUM 140 mmol/L (136-145); eGFR NON AFRICAN AMERICAN 90 mL/min (90-120)
[2018-09-18 06:54] LABS: AMYLASE - SERUM 97 U/L (25-115); UREA NITROGEN 18 mg/dL (7-18)
[2018-09-18 06:58] LABS: WBC 3.6 10x3/uL (4.8-10.8)
[2018-09-18 08:40] VITALS: BP 122/66
[2018-09-18 12:20] VITALS: Ht 167.6 cm; Wt 59.6 kg
[2018-09-18 12:22] VITALS: BP 110/58
[2018-09-18 20:42] VITALS: BP 113/60
[2018-09-19] VITALS (8 sets, daily range): BP systolic 109–123; BP diastolic 52–73
[2018-09-19 12:59] LABS: HEMATOCRIT 32.7 % (36.0-48.0); HEMOGLOBIN 10.5 g/dL (12-16); MCH 30.5 pg (26.0-34.0); MCHC 32.1 g/dL (31.0-37.0); MCV 95.1 fL (80.0-100.0); MEAN PLATELET VOLUME 8.9 fL (7.4-10.4); PLATELET COUNT 115 10x3/uL (130-400); RBC 3.44 10x6/uL (4.00-5.40); RDW 14.2 % (11.5-14.5)
[2018-09-19 13:05] LABS: WBC 2.6 10x3/uL (4.8-10.8)
[2018-09-19 13:19] LABS: ALBUMIN 2.3 g/dL (3.4-5.0); ALKALINE PHOSPHATASE 119 U/L (46-116); ALT (SGPT) 73 U/L (10-68); BILIRUBIN - TOTAL 0.35 mg/dL (0.2-1.3); CALC OSMOLALITY 281 mosm/kg (275-300); CALCIUM 7.2 mg/dL (8.5-10.1); CARBON DIOXIDE 27.4 mmol/L (21.0-32.0); CHLORIDE - SERUM 111 mmol/L (98-107); CREATININE - SERUM 0.8 mg/dL (0.6-1.3); GLUCOSE 90 mg/dL (74-106); POTASSIUM - SERUM 3.7 mmol/L (3.5-5.1); PROTEIN - SERUM 6.2 g/dL (6.4-8.2); SODIUM 142 mmol/L (136-145); UREA NITROGEN 9 mg/dL (7-18); eGFR NON AFRICAN AMERICAN 77 mL/min (90-120)
[2018-09-19 13:43] LABS: EOSINOPHILS 2 % (0-7); LYMPHOCYTES 33 % (15-50); MONOCYTES 11 % (2-11); NEUTROPHILS 54 % (40-80); PLATELET ESTIMATE DECREASED
[2018-09-20 03:34] VITALS: BP 109/54
[2018-09-20 08:01] VITALS: BP 118/78
[2018-09-20] MEDS ORDERED: MACRODANTIN50 MG PO (10:35)
[2018-09-20 11:34] LABS: BASOPHILS 0.3 % (0-2); EOSINOPHILS 4.1 % (0-7); HEMATOCRIT 35.6 % (36.0-48.0); HEMOGLOBIN 11.6 g/dL (12-16); IMMATURE GRANULOCYTES 0.3 % (0-5); LYMPHOCYTES 42.1 % (15-50); MCH 30.7 pg (26.0-34.0); MCHC 32.6 g/dL (31.0-37.0); MCV 94.2 fL (80.0-100.0); MONOCYTES 8.4 % (2-11); NEUTROPHILS 44.8 % (40-80); PLATELET COUNT 129 10x3/uL (130-400); RBC 3.78 10x6/uL (4.00-5.40); RDW 14.3 % (11.5-14.5)
[2018-09-20 11:46] LABS: WBC 3.7 10x3/uL (4.8-10.8)
[2018-09-20 11:52] VITALS: BP 120/62
[2018-09-20 11:54] LABS: ALBUMIN 2.6 g/dL (3.4-5.0); ALKALINE PHOSPHATASE 127 U/L (46-116); ALT (SGPT) 60 U/L (10-68); BILIRUBIN - TOTAL 0.27 mg/dL (0.2-1.3); CALCIUM 8.7 mg/dL (8.5-10.1); CARBON DIOXIDE 30.7 mmol/L (21.0-32.0); CHLORIDE - SERUM 107 mmol/L (98-107); CREATININE - SERUM 0.8 mg/dL (0.6-1.3); POTASSIUM - SERUM 3.5 mmol/L (3.5-5.1); PROTEIN - SERUM 7.2 g/dL (6.4-8.2); SODIUM 142 mmol/L (136-145); UREA NITROGEN 10 mg/dL (7-18); eGFR NON AFRICAN AMERICAN 77 mL/min (90-120)
[2018-09-20 12:00] LABS: CALC OSMOLALITY 279 mosm/kg (275-300); GLUCOSE 66 mg/dL (74-106)
== END 2018-09-20 14:31 | disposition home or self-care (01) | DRG 392 ==
LOC: D.ER 09:03 → D.M2 11:58 → D.EDHOLD 11:58 → D.M2 12:15
PROVIDERS: Family Medicine
DX: K52.9 Noninfective gastroenteritis and colitis, unspecified (principal); N39.0 Urinary tract infection, site not specified; B19.10 Unspecified viral hepatitis B without hepatic coma; D61.818 Other pancytopenia; I48.91 Unspecified atrial fibrillation; J44.9 Chronic obstructive pulmonary disease, unspecified; F32.9 Major depressive disorder, single episode, unspecified; F41.8 Other specified anxiety disorders

== ENCOUNTER 2019-05-14 13:12 | Emergency (ER) | payer MEDICARE, MEDICAID ==
[~2019-05-14] VITALS: Ht 167.6 cm; Wt 50.0 kg
[~2019-05-14 13:12] MED LIST changes: +ALBUTEROL IH; +KLONOPIN1 MG PO; +MACRODANTIN50 MG PO; +[UNRECOGNIZED DRUG - OTHER] IH
[2019-05-14 13:16] VITALS: Ht 167.6 cm; Wt 50.0 kg
[2019-05-14] MEDS ORDERED: ZOFRAN8 MG PO (13:23)
[2019-05-14] MEDS ORDERED: CYMBALTA60 MG PO (13:24)
[2019-05-14] MEDS ORDERED: CYCLOBENZAPRINE10 MG PO (15:36)
[2019-05-14] MEDS ORDERED: PREDNISONE20 MG PO (15:36)
[2019-05-14 16:13] VITALS: BP 104/68
== END 2019-05-14 16:22 | disposition home or self-care (01) ==
LOC: D.ER 13:12
DX: S39.012A Strain of muscle, fascia and tendon of lower back, initial encounter (principal); W18.30XA Fall on same level, unspecified, initial encounter; Y93.89 Activity, other specified; Y92.019 Unspecified place in single-family (private) house as the place of occurrence of the external cause; M62.838 Other muscle spasm

== ENCOUNTER 2019-05-26 21:42 | Emergency (ER) | payer MEDICARE, MEDICAID ==
[~2019-05-26] VITALS: Ht 167.6 cm; Wt 45.9 kg
[~2019-05-26 21:42] MED LIST changes: +CYCLOBENZAPRINE10 MG PO; +PREDNISONE20 MG PO; +ZOFRAN8 MG PO
[2019-05-26 21:44] VITALS: Ht 167.6 cm; Wt 45.9 kg
[2019-05-27 00:07] LABS: BASOPHILS 0.4 % (0-2); EOSINOPHILS 3.4 % (0-7); HEMATOCRIT 34.9 % (36.0-48.0); HEMOGLOBIN 11.5 g/dL (12-16); LYMPHOCYTES 31.1 % (15-50); MCH 30.8 pg (26.0-34.0); MCV 93.6 fL (80.0-100.0); MONOCYTES 10.7 % (2-11); NEUTROPHILS 54.4 % (40-80); PLATELET COUNT 106 10x3/uL (130-400); RBC 3.73 10x6/uL (4.00-5.40); RDW 13.9 % (11.5-14.5); WBC 5.5 10x3/uL (4.8-10.8)
[2019-05-27 00:22] LABS: ALBUMIN 3.1 g/dL (3.4-5.0); ALKALINE PHOSPHATASE 109 U/L (46-116); ALT (SGPT) 88 U/L (10-68); BILIRUBIN - TOTAL 0.71 mg/dL (0.2-1.3); CALC OSMOLALITY 279 mosm/kg (275-300); CARBON DIOXIDE 31.4 mmol/L (21.0-32.0); CHLORIDE - SERUM 104 mmol/L (98-107); POTASSIUM - SERUM 3.6 mmol/L (3.5-5.1); PROTEIN - SERUM 6.6 g/dL (6.4-8.2); SODIUM 140 mmol/L (136-145); UREA NITROGEN 14 mg/dL (7-18); eGFR NON AFRICAN AMERICAN 59 mL/min (90-120)
[2019-05-27 00:29] LABS: GLUCOSE 102 mg/dL (74-106)
[2019-05-27 00:34] LABS: CREATINE KINASE 154 UL (21-215); PRO BNP 965 pg/mL (0-125); TROPONIN-I < 0.017 ng/mL (0.000-0.060)
[2019-05-27] MEDS ORDERED: ALBUTEROL SULF8.5 GM INH (01:26)
[2019-05-27 01:57] LABS: APTT 28.2 SECONDS (22.8-39.4); INR 1.04 (0.85-1.17); PROTIME 13.1 SECONDS (11.6-15.0)
[2019-05-27 02:06] VITALS: BP 108/65
== END 2019-05-27 02:06 | disposition home or self-care (01) ==
LOC: D.ER 21:42
PROVIDERS: Emergency Medicine
DX: J45.901 Unspecified asthma with (acute) exacerbation (principal)

== ENCOUNTER 2019-07-08 15:02 | Emergency (ER) | payer MEDICARE, MEDICAID ==
[~2019-07-08] VITALS: Ht 167.6 cm; Wt 50.0 kg
[~2019-07-08 15:02] MED LIST changes: +ALBUTEROL SULF8.5 GM INH
[2019-07-08 15:14] VITALS: BP 111/59; Ht 167.6 cm; Wt 50.0 kg
== END 2019-07-08 17:52 | disposition left against medical advice (07) ==
LOC: D.ER 15:02
DX: M54.9 Dorsalgia, unspecified (principal)

== ENCOUNTER 2019-08-28 18:17 | Emergency (ER) | payer MEDICARE, MEDICAID ==
[~2019-08-28] VITALS: Ht 167.6 cm; Wt 53.6 kg
[2019-08-28 18:26] VITALS: Ht 167.6 cm; Wt 53.6 kg
[2019-08-28] MEDS ORDERED: ULTRAM50 MG PO (20:13)
[2019-08-28] MEDS ORDERED: NEURONTIN 300300 MG PO (20:13)
[2019-08-28 20:34] VITALS: BP 120/60
== END 2019-08-28 20:30 | disposition home or self-care (01) ==
LOC: D.ER 18:17
DX: M54.5 Low back pain (principal); M54.10 Radiculopathy, site unspecified

== ENCOUNTER 2019-10-09 05:16 | Inpatient (IN) | payer MEDICARE, MEDICAID ==
[~2019-10-09] VITALS: Ht 167.6 cm; Wt 49.1 kg
--- NOTE | ~2019-10-09 | EC ---
PATIENT:ROBERTH MYERS DATE OF SERVICE: 10/09/19 SEX: F MEDICAL RECORD: [id number] DATE OF : 57 LOCATION:D.M2 D.213 AGE OF PATIENT: 64 ADMISSION DATE: 10/09/19 REFERRING PHYSICIAN: INTERPRETING PHYSICIAN: BEAU VAZQUEZ MD ECHOCARDIOGRAM REPORT ECHO CHARGES 4 ECHO COMPLETE Date: 10/10/19 CLINICAL DIAGNOSIS: CHF ECHOCARDIOGRAPHIC MEASUREMENTS (adult normal given) AC root (d.<3.7cm) 3.0 cm LV Septum d (<1.2 cm> 1.0 cm Valve Excursion 1.9 cm LV Septum (systole) 1.8 cm Left Atria (s.<4.0cm> 2.8 cm LVPW d(<1.2cm) 1.1 cm RV (d.<2.3cm) 2.7 cm LVPW (sytole) 1.7 cm LV diastole(<5.6CM) 5.0 cm MV E-F(>70mm/sec) cm LV systole 2.6 cm LVOT Diameter 1.8 cm MV exc.(>10mm) cm Est.ejection fraction (50-75%) % DOPPLER: LVIT cm/sec A 59.0 cm/sec E 102 cm/sec LA cm/sec RVSP 47.0 mmHg LVOT 117 cm/sec AOP1/2T m/s Asc. Ao 140 cm/sec RVOT 60.0 cm/sec RA cm/sec PA 90.0 cm/sec AV Gradient Peak 7.8 mmHg AV Mean 4.2 mmHg AV Area 2.1 cm MV Gradient Peak 5.9 mmHg MV Mean 2.0 mmHg MV Area cm COMMENTS: Printed Circuit Board Pcb Designer: Oracio BLANTONOE Vegetable Grower: 1 Dr. Vazquez TAPE# PACS Pericardial Effusion N DATE OF SERVICE: 10/11/2019 ECHOCARDIOGRAM FINDINGS: 1. Left ventricular chamber size is within normal limits. Left ventricular systolic function is normal. Overall ejection fraction estimated at 55% to 60%. 2. Left atrium, right atrium, and right ventricle chamber sizes are within normal limits. 3. Valvular structures have normal structure and motion. ECHOCARDIOGRAM REPORT [id number] ROBERTH MYERS 4. Doppler interrogation reveals gxkc-[id number] mitral regurgitation, moderate to severe tricuspid regurgitation, no other valvular insufficiency or stenosis. Pulmonary systolic pressure is estimated at 47 mmHg. 5. No evidence of pericardial effusion or left ventricular thrombus. TRANSINT:[id number] Voice Confirmation ID: [id number] DOCUMENT ID: [id number] BEAU VAZQUEZ MD CC: [id number] DICTATION DATE: 10/11/19 1259 WAREHOUSE EXAMINER: 10/11/19 1722 ADM IN [facility] [address] [place] [address]
[~2019-10-09 05:16] MED LIST changes: +NEURONTIN 300300 MG PO; +ULTRAM50 MG PO
--- NOTE | 2019-10-09 05:30 | NUR ---
SPO2 87% AT TRIAGE, PT PLACED ON 2L NC SPO2 91%
[2019-10-09 06:03] LABS: BASOPHILS 0.1 % (0-2); EOSINOPHILS 1.2 % (0-7); HEMATOCRIT 38.5 % (36.0-48.0); HEMOGLOBIN 12.5 g/dL (12-16); IMMATURE GRANULOCYTES 0.1 % (0-5); LYMPHOCYTES 12.4 % (15-50); MCH 32.2 pg (26.0-34.0); MCHC 32.5 g/dL (31.0-37.0); MCV 99.2 fL (80.0-100.0); MEAN PLATELET VOLUME 9.3 fL (7.4-10.4); MONOCYTES 11.9 % (2-11); NEUTROPHILS 74.3 % (40-80); PLATELET COUNT 119 10x3/uL (130-400); RBC 3.88 10x6/uL (4.00-5.40); RDW 13.7 % (11.5-14.5); WBC 7.7 10x3/uL (4.8-10.8)
[2019-10-09 06:12] LABS: CALC OSMOLALITY 279 mosm/kg (275-300); CALCIUM 7.9 mg/dL (8.5-10.1); CARBON DIOXIDE 28.6 mmol/L (21.0-32.0); CHLORIDE - SERUM 104 mmol/L (98-107); CREATININE - SERUM 1.2 mg/dL (0.6-1.3); POTASSIUM - SERUM 3.4 mmol/L (3.5-5.1); SODIUM 138 mmol/L (136-145); UREA NITROGEN 16 mg/dL (7-18); eGFR NON AFRICAN AMERICAN 48 mL/min (90-120)
[2019-10-09 06:13] LABS: GLUCOSE 158 mg/dL (74-106)
[2019-10-09 06:17] LABS: APTT 34.3 SECONDS (22.8-39.4); INR 1.03 (0.85-1.17)
[2019-10-09 06:28] LABS: ALBUMIN 2.4 g/dL (3.4-5.0); ALKALINE PHOSPHATASE 76 U/L (46-116); ALT (SGPT) 63 U/L (10-68); BILIRUBIN - TOTAL 0.71 mg/dL (0.2-1.3); CREATINE KINASE 45 UL (21-215); PRO BNP 2026 pg/mL (0-125); PROTEIN - SERUM 6.6 g/dL (6.4-8.2)
[2019-10-09 06:29] LABS: TROPONIN-I < 0.017 ng/mL (0.000-0.060)
[2019-10-09 09:41] VITALS: BP 107/60; BMI 25.5
[2019-10-09 10:02] VITALS: BP 107/60
--- NOTE | 2019-10-09 10:24 | NUR ---
PT RESTING QUIETLY WITH EYES CLOSED. 2LPM OF O2 IS NOTED AND THERE ARE NO SIGNS OF DISTRESS AT THIS TIME. BED IS IN LOW POSITION AND CALL LIGHT IS IN REACH.
[2019-10-09 12:43] VITALS: BP 120/59
[2019-10-09 14:58] VITALS: Ht 167.6 cm; Wt 49.1 kg
[2019-10-09 17:16] VITALS: BP 127/66
--- NOTE | 2019-10-09 19:26 | NUR ---
REPORT RECEIVED, WILL CONTINUE POC. PATIENT IS AAOX4, LYING IN SEMI-FOWLERS POSITION. NO S/S OF DISTRESS OBSERVED, RR EVEN AND UNLABORED ON 3.5L O2 VIA NC. PATIENT DENIES NEEDS AT THIS TIME. CL IN REACH, BED LOCKED AND LOWERED. WILL CTM.
[2019-10-09 20:00] VITALS: BP 128/72
[2019-10-10] VITALS (7 sets, daily range): BP systolic 118–142; BP diastolic 52–81
[2019-10-10 06:33] LABS: BASOPHILS 0 % (0-2); EOSINOPHILS 0 % (0-7); HEMATOCRIT 33.1 % (36.0-48.0); HEMOGLOBIN 10.5 g/dL (12-16); IMMATURE GRANULOCYTES 0.4 % (0-5); LYMPHOCYTES 14.6 % (15-50); MCH 31.5 pg (26.0-34.0); MCHC 31.7 g/dL (31.0-37.0); MCV 99.4 fL (80.0-100.0); MEAN PLATELET VOLUME 9.4 fL (7.4-10.4); MONOCYTES 6.6 % (2-11); NEUTROPHILS 78.4 % (40-80); PLATELET COUNT 122 10x3/uL (130-400); RBC 3.33 10x6/uL (4.00-5.40); RDW 13.5 % (11.5-14.5); WBC 8.3 10x3/uL (4.8-10.8)
[2019-10-10 06:52] LABS: ANION GAP 7.5 mmol/L (8-16); BILIRUBIN - TOTAL 0.34 mg/dL (0.2-1.3); CALCIUM 7.8 mg/dL (8.5-10.1); CARBON DIOXIDE 28.2 mmol/L (21.0-32.0); CREATININE - SERUM 0.9 mg/dL (0.6-1.3); MAGNESIUM - SERUM 1.5 mg/dL (1.8-2.4); PHOSPHOROUS 3.2 mg/dL (2.5-4.9); POTASSIUM - SERUM 3.7 mmol/L (3.5-5.1)
[2019-10-10 10:44] LABS: UDS - AMPHET NEGATIVE QUAL (NEGATIVE); UDS - BARB NEGATIVE QUAL (NEGATIVE); UDS - BENZO NEGATIVE QUAL (NEGATIVE); UDS - COCAINE NEGATIVE QUAL (NEGATIVE); UDS - OPIATE POSITIVE QUAL (NEGATIVE); UDS - PCP NEGATIVE QUAL (NEGATIVE); UDS - THC NEGATIVE QUAL (NEGATIVE)
[2019-10-10 10:45] LABS: APPEARANCE HAZY (CLEAR); BILIRUBIN NEGATIVE (NEGATIVE); COLOR YELLOW (YELLOW); GLUCOSE 100 mg/dL (NEGATIVE); KETONE NEGATIVE (NEGATIVE); NITRITE POSITIVE (NEGATIVE); PROTEIN NEGATIVE (NEGATIVE); SPECIFIC GRAVITY 1.015 (1.005-1.020)
[2019-10-10 10:47] LABS: BACTERIA MANY /hpf (NEGATIVE); EPITHELIAL CELLS 0-5 /hpf (0-5); MUCUS <1+ /lpf (NONE SEEN); RED CELLS - URINE OCC /hpf (0-5)
--- NOTE | 2019-10-10 19:42 | NUR ---
REPORT RECEIVED, WILL CONTINUE POC. PATIENT IS AAOX4, UP AD JULITO. PATIENT LYING ON RT SIDE. NO S/S OF DISTRESS OBSERVED, RR EVEN AND UNLABORED ON 3.5L O2 VIA NC. PATIENT REQUESTING HER ELVAIL AT BEDTIME. PAGED FRANCINE NUNO. PATIENT DENIES FURTHER NEEDS AT THIS TIME. CL IN REACH, BED LOCKED AND LOWERED. WILL CTM.
[2019-10-11 04:00] VITALS: BP 141/70
[2019-10-11 09:48] VITALS: BP 135/62
[2019-10-11 10:28] LABS: ANION GAP 12.1 mmol/L (8-16); CALCIUM 7.5 mg/dL (8.5-10.1); CARBON DIOXIDE 24.4 mmol/L (21.0-32.0); MAGNESIUM - SERUM 1.5 mg/dL (1.8-2.4); POTASSIUM - SERUM 3.5 mmol/L (3.5-5.1)
--- NOTE | 2019-10-11 12:59 | NUR ---
Nutrition Follow-up: Eating well. Ate 100% this AM. Noted ST signed off. Diet: Diabetic, Dental Soft Wt: 115.9# (114.6# on 10/10) Last BM: 10/11 Labs noted: Glu 269, Ca 7.5, Mg 1.5 Meds noted: Solumedrol, Humulin, MagOx, NS @ 75 -Continue current diet as tolerated. -RD following.
[2019-10-11 17:16] VITALS: BP 138/69
[2019-10-11 17:27] VITALS: BP 145/79
--- NOTE | 2019-10-11 18:34 | NUR ---
I have reviewed this patient and I concur with the Shift Assessment completed by the Licensed Practical Nurse today this shift.
--- NOTE | 2019-10-11 19:40 | NUR ---
REPORT RECEIVED. PT RECEIVING UP UPDRAFT. RR EVEN AND UNLABORED. NO S/SX OF DISTRESS NOTED AT THIS TIME. NO NEEDS EXPRESSED AT THIS TIME. CALL LIGHT IN REACH. WILL CTM.
[2019-10-11 20:00] VITALS: BP 157/73
[2019-10-12] VITALS: BP 164/80
[2019-10-12 04:00] VITALS: BP 132/75
--- NOTE | 2019-10-12 07:00 | NUR ---
RECEVIED REPORT. ASSUMED CARE OF PATIENT. CALL LIGHT WITHIN REACH. RESTING IN BED WITH EYES CLOSED, EASILY AROUSED. DENIES NEEDS. NO DISTRESS. RESP EVEN AND UNLABORED. PATIENT STATES HER "BREATHING" IS MUCH BETTER NOW.
--- NOTE | 2019-10-12 07:15 | NUR ---
PATIENT LEFT UNIT VIA WHEELCHAIR FOR CT OF LUNGS. NO DISTRESS UPON LEAVING UNIT WITH RENETTA.
--- NOTE | 2019-10-12 07:35 | NUR ---
PATIENT RETURNED TO UNIT. NO DISTRESS. TOLERATED CT SCAN OF LUNGS WELL.
--- NOTE | 2019-10-12 08:16 | NUR ---
CALLED PHARMACY TO REPORT THAT NEITHER [facility] HAS ANY MUCINEX DM AVAILABLE TO PULL FOR PATIENT ADMINISTRATION THIS AM. PHARMACY STATES [facility] WILL BRING IT UP.
[2019-10-12 08:50] VITALS: BP 140/74
[2019-10-12 09:42] LABS: MCH 31.6 pg (26.0-34.0); MCHC 32.2 g/dL (31.0-37.0); MCV 98.1 fL (80.0-100.0); MEAN PLATELET VOLUME 8.9 fL (7.4-10.4); PLATELET COUNT 138 10x3/uL (130-400); RDW 13.4 % (11.5-14.5); WBC 6.4 10x3/uL (4.8-10.8)
[2019-10-12 09:53] LABS: HEMATOCRIT 40.4 % (36.0-48.0); RBC 4.12 10x6/uL (4.00-5.40)
[2019-10-12 09:58] LABS: ANION GAP 10.7 mmol/L (8-16); CALCIUM 8.2 mg/dL (8.5-10.1); CARBON DIOXIDE 28.4 mmol/L (21.0-32.0); POTASSIUM - SERUM 3.1 mmol/L (3.5-5.1)
[2019-10-12 10:09] LABS: EOSINOPHILS 1 % (0-7); LYMPHOCYTES 26 % (15-50); NEUTROPHILS 70 % (40-80)
[2019-10-12 10:10] LABS: ELLIPTOCYTES OCC; PLATELET ESTIMATE NORMAL; TEAR DROP CELLS OCC
--- NOTE | 2019-10-12 10:15 | NUR ---
ELECTROLYTE REPLACEMENT PROTOCOL INITIATED AT THIS TIME FOR MAGNESIUM AND POTASSIUM.
--- NOTE | 2019-10-12 11:22 | NUR ---
FSBS 1545. 2 UNITS HUMULIN INSULIN ADMINISTERED PER SLIDING SCALE. NO DISTRESS.
[2019-10-12 11:59] VITALS: BP 152/78
--- NOTE | 2019-10-12 16:34 | NUR ---
FSBS 127. NO INSULIN COVERAGE PER SLIDING SCALE.
[2019-10-12 16:41] VITALS: BP 129/81
--- NOTE | 2019-10-12 19:20 | NUR ---
REPORT RECEIVED. PT IN BED RR EVEN AND UNLABORED ON 4L NC. NO S/SX OF DISTRESS NOTED AT THIS TIME. NO NEEDS EXPRESSED. CALL LIGHT IN REACH. WILL CTM.
[2019-10-12 20:00] VITALS: BP 137/68
[2019-10-13] VITALS: BP 160/83
[2019-10-13 04:00] VITALS: BP 124/75
[2019-10-13 06:03] LABS: BASOPHILS 0.1 % (0-2); EOSINOPHILS 0.1 % (0-7); HEMATOCRIT 40.6 % (36.0-48.0); HEMOGLOBIN 13.1 g/dL (12-16); IMMATURE GRANULOCYTES 2.9 % (0-5); LYMPHOCYTES 17.7 % (15-50); MCH 31.1 pg (26.0-34.0); MCHC 32.3 g/dL (31.0-37.0); MCV 96.4 fL (80.0-100.0); MEAN PLATELET VOLUME 9.1 fL (7.4-10.4); MONOCYTES 10.8 % (2-11); NEUTROPHILS 68.4 % (40-80); PLATELET COUNT 137 10x3/uL (130-400); RBC 4.21 10x6/uL (4.00-5.40); RDW 13.3 % (11.5-14.5); WBC 7.3 10x3/uL (4.8-10.8)
[2019-10-13 06:20] LABS: ANION GAP 8.8 mmol/L (8-16); CALCIUM 8.4 mg/dL (8.5-10.1); CARBON DIOXIDE 28.2 mmol/L (21.0-32.0); CREATININE - SERUM 0.9 mg/dL (0.6-1.3)
--- NOTE | 2019-10-13 07:22 | NUR ---
PT RESTING PEACEFULLY, BREATHS EVEN/REGULAR AND UNALBORED. NO SIGNS OR SYMTPOMS OF ACUTE DISTRESS NOTED AT THIS TIME. DID NOT WAKE I ENTERED, DID NOT FURTHER DISTURB. NO FAMILY AT BEDSIDE. CL IN REACH, SRX2.
[2019-10-13 08:48] VITALS: BP 122/76
[2019-10-13 13:08] VITALS: BP 138/74
--- NOTE | 2019-10-13 14:24 | NUR ---
I have reviewed this patient and I concur with the Shift Assessment completed by the Licensed Practical Nurse today this shift.
--- NOTE | 2019-10-13 15:10 | NUR ---
PT AWAKE AND ORIENTED. RT DID WALK O2 TEST, PT WOULD NOT QUALIFY FOR HOME O2. SEE RT NOTES FOR FURTHER DETAILS. PT REFUSED TESSALON PERLE, STATING SHE HASN'T COUGHED TODAY AND IS FEELING MUCH BETTER AT HTI STIME. CL IN REACH, SRX2
[2019-10-13 17:00] VITALS: BP 132/81
[2019-10-13 20:40] VITALS: BP 140/92
[2019-10-13 22:06] LABS: IMMUNOGLOBULIN E 27 IU/mL (6-495)
[2019-10-14 00:30] VITALS: BP 140/79
[2019-10-14 04:36] VITALS: BP 145/79
[2019-10-14 06:25] LABS: BASOPHILS 0.2 % (0-2); EOSINOPHILS 1.1 % (0-7); HEMOGLOBIN 12.2 g/dL (12-16); IMMATURE GRANULOCYTES 5.1 % (0-5); LYMPHOCYTES 23.9 % (15-50); MCH 31.4 pg (26.0-34.0); MCV 95.4 fL (80.0-100.0); MEAN PLATELET VOLUME 8.7 fL (7.4-10.4); MONOCYTES 12.4 % (2-11); NEUTROPHILS 57.3 % (40-80); PLATELET COUNT 110 10x3/uL (130-400); RBC 3.88 10x6/uL (4.00-5.40); RDW 13.3 % (11.5-14.5); WBC 6.3 10x3/uL (4.8-10.8)
[2019-10-14 06:54] LABS: CALCIUM 7.8 mg/dL (8.5-10.1); CARBON DIOXIDE 27.7 mmol/L (21.0-32.0); CHLORIDE - SERUM 106 mmol/L (98-107); CREATININE - SERUM 0.8 mg/dL (0.6-1.3); SODIUM 141 mmol/L (136-145); UREA NITROGEN 17 mg/dL (7-18); eGFR NON AFRICAN AMERICAN 77 mL/min (90-120)
[2019-10-14 06:55] LABS: CALC OSMOLALITY 281 mosm/kg (275-300); GLUCOSE 77 mg/dL (74-106); POTASSIUM - SERUM 3.1 mmol/L (3.5-5.1)
--- NOTE | 2019-10-14 07:17 | NUR ---
PT AWAKE AND ORIENTED WHEN I ENTERED ROOM, STATES SHE'S EXCITED TO GET TO GO HOME TODAY. NO D/C ORDER AT THIS TIME. NO COMPLAINTS/CONCERNS, ANSWERED ALL QUESTIONS ANSWERED TO THE BEST OF MY ABILITY. CL IN REACH, SRX2.
--- NOTE | 2019-10-14 09:08 | NUR ---
PT AWAKE AND ORIENTED, STATES SHE DOES NOT WANT TO WAIT AROUND ALL MORNING FOR THE DOCTOR TO LEAVE, BUT SHE WILL IF SHE HAS TOO. ASKED AGAIN IF D/C IS IN, AGAIN TOLD NO. WILL CONT. TO MONITOR. CL IN REACH, SRX2.
[2019-10-14 09:59] VITALS: BP 117/66
[2019-10-14] MEDS ORDERED: LEVAQUIN750 MG PO (10:33)
[2019-10-14] MEDS ORDERED: STERAPRED DS 1010 MG PO (10:35)
[2019-10-14] MEDS ORDERED: SINGULAIR10 MG PO (10:35)
[2019-10-14] MEDS ORDERED: PULMICORT0.5 MG/21 UPD (10:35)
[2019-10-14] MEDS ORDERED: PEPCID40 MG PO (10:36)
--- NOTE | 2019-10-14 10:38 | NUR ---
I CONCUR WITH THE DEPARTMENT SALES MANAGER ASSESSMENT OF THIS PATIENT.
--- NOTE | 2019-10-14 10:40 | NUR ---
REPLACED POTASSIUM PER PROTOCOL
--- NOTE | 2019-10-14 12:47 | MORECARE ---
CASE MANAGEMENT DISCHARGE SUMMARY PATIENT: ROBERTH MYERS BAIRON UNIT: [id number] ADM DATE: 10/09/19 AGE: 64 : 57 SEX: F ROOM/BED: D.213 AUTHOR: JORDAN POSADAS PHYSICIAN: REFERRING PHYSICIAN: YAZ ROLLE MD DATE OF SERVICE: 10/14/19 Discharge Plan Patient Name: ROBERTH MYERS [facility] [facility] 1955 Planned Disposition: Home Anticipated Discharge Date: 10/14/19 Discharge Date: Expected LOS: 5 Initial Reviewer: [id number] Initial Review Date: 10/14/2019 Generated: 10/14/19 1:46 pm External Providers External Provider: Flower Ferrell Next Contact Date: 10/14/2019 Service Request Date: Service Type: Resolution: Reviewer: Comments: Coverage Notice Reviewer: [id number] Villegas Notice Issued Date-Time: 10/14/2019 11:55 Notice Type: Patient Choice Letter Notice Delivered To: Patient Relationship to Patient: Instructional Technology Director Name: Delivery Method: HAND - Hand Delivered Anny Days: Prior Verbal Notification: Recipient Understood Notice: Yes Recipient Signature: Yes Med Rec Note Co-signed by Attending: Coverage Notice Comment: RIAZ DEGROOT Reviewer: [id number] Villegas Notice Issued Date-Time: 10/14/2019 11:55 Notice Type: IM Discharge Notice Notice Delivered To: Patient Relationship to Patient: Instructional Technology Director Name: Delivery Method: HAND - Hand Delivered Anny Days: Prior Verbal Notification: Recipient Understood Notice: Yes Recipient Signature: Yes Med Rec Note Co-signed by Attending: Coverage Notice Comment: Patient Name: ROBERTH MYERS Page 00251 at 1247 All edits/amendments must be made on the electronic document DICTATION DATE: 10/14/19 1246 ORTHOPEDIC BRACE MAKER: LEONIDES 10/14/19 1246 RPT#: [id number] DC DATE: STATUS: ADM IN [facility] [address] [place] [address] END OF REPORT
--- NOTE | 2019-10-14 13:23 | MORECARE ---
CASE MANAGEMENT DISCHARGE SUMMARY PATIENT: ROBERTH MYERS UNIT: [id number] ADM DATE: 10/09/19 AGE: 64 : 57 SEX: F ROOM/BED: D.8440 AUTHOR: CUAUHTEMOC,DOC PHYSICIAN: REFERRING PHYSICIAN: YAZ ROLLE MD DATE OF SERVICE: 10/14/19 Discharge Plan Patient Name: ROBERTH MYERS Facility: [facility]:[place] : 1955 Planned Disposition: Home Anticipated Discharge Date: 10/14/19 Discharge Date: Expected LOS: 5 Initial Reviewer: [id number] Initial Review Date: 10/14/2019 Generated: 10/14/19 2:23 pm DCPIA - Discharge Planning Initial Assessment Updated by DERRICK: Felix Villegas on 10/14/19 1:17 pm * Is the patient Alert and Oriented? Yes * How many steps to enter\exit or inside your home? * PCP DR. BAIRON GRESHAM, [place] [facility] * Pharmacy [facility]. * Preadmission Environment Home Alone * ADLs Independent * Equipment None * Other Equipment NO MEDICAL EQUIPMENT PROVIDER PREFERENCE * List name and contact numbers for known caregivers / representatives who currently or will assist patient after discharge: NONE * Verbal permission to speak to the caregivers and representatives has been obtained from the patient. N/A * Community resources currently utilized None * Please name any agencies selected above. NONE * Additional services required to return to the preadmission environment? No * Can the patient safely return to the preadmission environment? Yes * Has this patient been hospitalized within the prior 30 days at any hospital? No Coverage Notice Reviewer: [id number] Priyanka Villegas Notice Issued Date-Time: 10/14/2019 11:55 Notice Type: Patient Choice Letter Notice Delivered To: Patient Relationship to Patient: Piece Maker Name: Delivery Method: HAND - Hand Delivered Anny Days: Prior Verbal Notification: Recipient Understood Notice: Yes Recipient Signature: Yes Med Rec Note Co-signed by Attending: Coverage Notice Comment: RIAZ DEGROOT Reviewer: [id number] Priyanka Villegas Notice Issued Date-Time: 10/14/2019 11:55 Notice Type: IM Discharge Notice Notice Delivered To: Patient Relationship to Patient: Piece Maker Name: Delivery Method: HAND - Hand Delivered Anny Days: Prior Verbal Notification: Recipient Understood Notice: Yes Recipient Signature: Yes Med Rec Note Co-signed by Attending: Coverage Notice Comment: Last DP export: 10/14/19 11:47 Patient Name: ROBERTH MYERS Page [phone] at 1323 All edits/amendments must be made on the electronic document DICTATION DATE: 10/14/19 1323 MOBILE PATROL OFFICER: LEONIDES 10/14/19 1323 RPT#: [id number] DC DATE: STATUS: ADM IN [facility] [address] [place] [address] END OF REPORT
--- NOTE | 2019-10-14 13:32 | MORECARE ---
CASE MANAGEMENT DISCHARGE SUMMARY PATIENT: ROBERTH MYERS UNIT: [id number] ADM DATE: 10/09/19 AGE: 64 : 57 SEX: F ROOM/BED: D.6898 AUTHOR: CUAUHTEMOC,DOC PHYSICIAN: REFERRING PHYSICIAN: YAZ ROLLE MD DATE OF SERVICE: 10/14/19 Discharge Plan Patient Name: ROBERTH MYERS Facility: [facility]:[place] : 1955 Planned Disposition: Home Anticipated Discharge Date: 10/14/19 Discharge Date: Expected LOS: 5 Initial Reviewer: [id number] Initial Review Date: 10/14/2019 Generated: 10/14/19 2:32 pm Comments DCP- Discharge Planning Updated by [email or web address]: Felix Villegas on 10/14/19 12:[address] Patient Name: ORBERTH MYERS Encounter No: [id number] : 1955 Primary Insurance: [facility] MEDICARE SOLUTIONS Anticipated DC Date: 10-14-2019 Planned Disposition: Home DISCHARGE PLANNING NOTE: CM RECEIVED DISCHARGE ORDER, REVIEWED CHART AND SPOKE TO MUSIC CRITIC NURSE, PT BEING DISCHARGED ON NEBLULIZED MEDICATIONS. CM MET WITH PT IN ROOM TO DISCUSS DISCHARGE PLANNING AND NEEDS. PT REPORTS LIVING AT HOME INDEPENDENTLY AND ALONE. PT HAS NO MEDICAL EQUIPMENT AND NO OUTSIDE SERVICES ASSISTING IN THE HOME. CM DISCUSSED AVAILABILITY OF HOME HEALTH, REHAB SERVICES AND MEDICAL EQUIPMENT. PT DOES NOT HAVE NEBULIZER, HAS NO PREFERENCE ON PROVIDER, CHOICE SIGNED FOR [facility] AND [facility]. PT REPORTS SHE WILL TAKE [employer] BUS FOR TRANSPORT HOME AT DISCHARGE TODAY. PT DENIES NEED OF HOME HEALTH SERVICES. IMPORTANT MESSAGE FROM MEDICARE PROVIDED AND EXPLAINED. CM CALLED [facility], , SPOKE TO MIKE AND PROVIDED REFERRAL INFORMATION. CM FAXED REFERRAL TO [facility], . MIKE ADVISED THEY WILL DELIVER [facility]IZER [facility]. MUSIC CRITIC NURSE NOTIFIED. Felix Villegas, CASE MANAGEMENT DCPIA - Discharge Planning Initial Assessment Updated by [id number]: Felix Villegas on 10/14/19 1:17 pm * Is the patient Alert and Oriented? Yes * How many steps to enter\exit or inside your home? * PCP DR. BAIRON GRESHAM, [facility] * Pharmacy [facility]. * Preadmission Environment Home Alone * ADLs Independent * Equipment None * Other Equipment NO MEDICAL EQUIPMENT PROVIDER PREFERENCE * List name and contact numbers for known caregivers / representatives who currently or will assist patient after discharge: NONE * Verbal permission to speak to the caregivers and representatives has been obtained from the patient. N/A * Community resources currently utilized None * Please name any agencies selected above. NONE * Additional services required to return to the preadmission environment? No * Can the patient safely return to the preadmission environment? Yes * Has this patient been hospitalized within the prior 30 days at any hospital? No Coverage Notice Reviewer: [email or web address] Villegas Notice Issued Date-Time: 10/14/2019 11:55 Notice Type: Patient Choice Letter Notice Delivered To: Patient Relationship to Patient: Teenage Babysitter Name: Delivery Method: HAND - Hand Delivered Anny Days: Prior Verbal Notification: Recipient Understood Notice: Yes Recipient Signature: Yes Med Rec Note Co-signed by Attending: Coverage Notice Comment: RIAZ DEGROOT Reviewer: [id number] Villegas Notice Issued Date-Time: 10/14/2019 11:55 Notice Type: IM Discharge Notice Notice Delivered To: Patient Relationship to Patient: Teenage Babysitter Name: Delivery Method: HAND - Hand Delivered Anny Days: Prior Verbal Notification: Recipient Understood Notice: Yes Recipient Signature: Yes Med Rec Note Co-signed by Attending: Coverage Notice Comment: Last DP export: 10/14/19 12:23 Patient Name: ROBERTH MYERS Page [phone] at 1332 All edits/amendments must be made on the electronic document DICTATION DATE: 10/14/19 1332 TIRE CLASSIFIER: LEONIDES 10/14/19 1332 RPT#: [id number] DC DATE: STATUS: ADM IN [facility] [address] [place] [address] END OF REPORT
--- NOTE | 2019-10-14 14:51 | NUR ---
PT ESCORTED OUT OF HOSPITAL VIA WHEELCAHIR TO BUS STOP.
--- NOTE | 2019-10-14 16:59 | MORECARE ---
CASE MANAGEMENT DISCHARGE SUMMARY PATIENT: ROBERTH MYERS UNIT: [id number] ADM DATE: 10/09/19 AGE: 64 : 57 SEX: F ROOM/BED: D.2221 AUTHOR: CUAUHTEMOC,DOC PHYSICIAN: REFERRING PHYSICIAN: YAZ ROLLE MD DATE OF SERVICE: 10/14/19 Discharge Plan Patient Name: ROBERTH MYERS Facility: [facility]:[place] : 1955 Planned Disposition: Home Anticipated Discharge Date: 10/14/19 Discharge Date: 10/14/2019 Expected LOS: 5 Initial Reviewer: [email or web address] Initial Review Date: 10/14/2019 Generated: 10/14/19 5:59 pm Comments DCP- Discharge Planning Updated by [email or web address]: Honey Vail on 10/14/19 3:[address] Patient Name: ROBERTH MYERS Encounter No: [id number] : 1955 Primary Insurance: [facility] MEDICARE SOLUTIONS Anticipated DC Date: 10-14-2019 Planned Disposition: Home DISCHARGE PLANNING NOTE: CM RECEIVED DISCHARGE ORDER, REVIEWED CHART AND SPOKE TO CARD PROCESSING CLERK NURSE, PT BEING DISCHARGED ON NEBLULIZED MEDICATIONS. CM MET WITH PT IN ROOM TO DISCUSS DISCHARGE PLANNING AND NEEDS. PT REPORTS LIVING AT HOME INDEPENDENTLY AND ALONE. PT HAS NO MEDICAL EQUIPMENT AND NO OUTSIDE SERVICES ASSISTING IN THE HOME. CM DISCUSSED AVAILABILITY OF HOME HEALTH, REHAB SERVICES AND MEDICAL EQUIPMENT. PT DOES NOT HAVE NEBULIZER, HAS NO PREFERENCE ON PROVIDER, CHOICE SIGNED FOR [facility] AND [facility]. PT REPORTS SHE WILL TAKE [employer] BUS FOR TRANSPORT HOME AT DISCHARGE TODAY. PT DENIES NEED OF HOME HEALTH SERVICES. IMPORTANT MESSAGE FROM MEDICARE PROVIDED AND EXPLAINED. CM CALLED [facility], , SPOKE TO MIKE AND PROVIDED REFERRAL INFORMATION. CM FAXED REFERRAL TO [facility], . MIKE ADVISED THEY WILL DELIVER NE[facility]ULIZER [facility]. CARD PROCESSING CLERK NURSE NOTIFIED. Felix Villegas, CASE MANAGEMENT Appended by Honey Vail on 10/14/2019 16:58 RADIO INTERFERENCE INVESTIGATOR: [facility] NEB ORDER FORM SIGNED BY SARIAH AND FAXED BACK TO [facility]. IMAGE SCANNED. DCPIA - Discharge Planning Initial Assessment Updated by [email or web address]: Felix Villegas on 10/14/19 1:17 pm * Is the patient Alert and Oriented? Yes * How many steps to enter\exit or inside your home? * PCP DR. BAIRON GRESHAM, [facility] * Pharmacy [facility]. * Preadmission Environment Home Alone * ADLs Independent * Equipment None * Other Equipment NO MEDICAL EQUIPMENT PROVIDER PREFERENCE * List name and contact numbers for known caregivers / representatives who currently or will assist patient after discharge: NONE * Verbal permission to speak to the caregivers and representatives has been obtained from the patient. N/A * Community resources currently utilized None * Please name any agencies selected above. NONE * Additional services required to return to the preadmission environment? No * Can the patient safely return to the preadmission environment? Yes * Has this patient been hospitalized within the prior 30 days at any hospital? No Coverage Notice Reviewer: [id number] Priyanka Villegas Notice Issued Date-Time: 10/14/2019 11:55 Notice Type: Patient Choice Letter Notice Delivered To: Patient Relationship to Patient: Laborer Wood Preserving Plant Name: Delivery Method: HAND - Hand Delivered Anny Days: Prior Verbal Notification: Recipient Understood Notice: Yes Recipient Signature: Yes Med Rec Note Co-signed by Attending: Coverage Notice Comment: AERRAMSEYE OR ZANE Reviewer: [id number] Priyanka Villegas Notice Issued Date-Time: 10/14/2019 11:55 Notice Type: IM Discharge Notice Notice Delivered To: Patient Relationship to Patient: Laborer Wood Preserving Plant Name: Delivery Method: HAND - Hand Delivered Anny Days: Prior Verbal Notification: Recipient Understood Notice: Yes Recipient Signature: Yes Med Rec Note Co-signed by Attending: Coverage Notice Comment: Last DP export: 10/14/19 12:32 Patient Name: ROBERTH MYERS Page [phone] at 1659 All edits/amendments must be made on the electronic document DICTATION DATE: 10/14/191658 CONCRETE CRUSHER LOADER OPERATOR: LEONIDES 10/14/191658 RPT#: [id number] DC DATE:10/14/19 STATUS: DIS IN [facility] [address] [place] [address] END OF REPORT
== END 2019-10-14 14:51 | disposition home or self-care (01) | DRG 193 ==
LOC: D.ER 05:16 → D.M2 05:45
PROVIDERS: Family Medicine; Internal Medicine Pulmonary Disease; ADMIT Internal Medicine Nephrology; ATTEND Internal Medicine Nephrology
DX: J18.9 Pneumonia, unspecified organism (principal); J96.01 Acute respiratory failure with hypoxia; E43 Unspecified severe protein-calorie malnutrition; J44.1 Chronic obstructive pulmonary disease with (acute) exacerbation; J44.0 Chronic obstructive pulmonary disease with (acute) lower respiratory infection; F17.213 Nicotine dependence, cigarettes, with withdrawal; J98.11 Atelectasis; E87.6 Hypokalemia; I10 Essential (primary) hypertension; K22.70 Barrett's esophagus without dysplasia; E11.51 Type 2 diabetes mellitus with diabetic peripheral angiopathy without gangrene; E83.42 Hypomagnesemia; D69.6 Thrombocytopenia, unspecified; Z68.25 Body mass index [BMI] 25.0-25.9, adult

== ENCOUNTER 2019-11-07 14:08 | Emergency (ER) | payer MEDICARE, MEDICAID ==
[~2019-11-07] VITALS: Ht 167.6 cm; Wt 53.6 kg
[~2019-11-07 14:08] MED LIST changes: +PEPCID40 MG PO; +PULMICORT0.5 MG/21 UPD; +SINGULAIR10 MG PO; +STERAPRED DS 1010 MG PO
[2019-11-07 14:21] VITALS: BP 150/82; Ht 167.6 cm; Wt 53.6 kg
== END 2019-11-07 17:39 | disposition left against medical advice (07) ==
LOC: D.ER 14:08
DX: M54.5 Low back pain (principal)

== ENCOUNTER 2020-07-21 14:10 | Inpatient (IN) | payer MEDICARE, MEDICAID ==
[~2020-07-21] VITALS: Ht 167.6 cm; Wt 40.9 kg
[2020-07-21 14:49] LABS: BASOPHILS 0.3 % (0-2); HEMATOCRIT 38.9 % (36.0-48.0); HEMOGLOBIN 12.7 g/dL (12-16); IMMATURE GRANULOCYTES 0.2 % (0-5); LYMPHOCYTES 33.3 % (15-50); MCH 30.4 pg (26.0-34.0); MCHC 32.6 g/dL (31.0-37.0); MCV 93.1 fL (80.0-100.0); MEAN PLATELET VOLUME 9.2 fL (7.4-10.4); MONOCYTES 11.8 % (2-11); NEUTROPHILS 52.4 % (40-80); RBC 4.18 10x6/uL (4.00-5.40); RDW 14.9 % (11.5-14.5)
[2020-07-21 14:59] LABS: APTT 28.4 SECONDS (22.8-39.4); PROTIME 13.1 SECONDS (11.6-15.0)
[2020-07-21 15:04] LABS: PLATELET COUNT 168 10x3/uL (130-400)
[2020-07-21 15:05] LABS: CALC OSMOLALITY 275 mosm/kg (275-300); CALCIUM 9.4 mg/dL (8.5-10.1); CARBON DIOXIDE 28.3 mmol/L (21.0-32.0); CHLORIDE - SERUM 104 mmol/L (98-107); GLUCOSE 90 mg/dL (74-106); POTASSIUM - SERUM 3.5 mmol/L (3.5-5.1); SODIUM 138 mmol/L (136-145); UREA NITROGEN 13 mg/dL (7-18); eGFR NON AFRICAN AMERICAN 59 mL/min (90-120)
[2020-07-21 15:19] LABS: ALBUMIN 3.4 g/dL (3.4-5.0); ALKALINE PHOSPHATASE 97 U/L (30-120); ALT (SGPT) 53 U/L (10-68); CKMB 4.4 U/L (0.0-3.6); CREATINE KINASE 177 UL (21-215); MAGNESIUM - SERUM 1.5 mg/dL (1.8-2.4); PROTEIN - SERUM 7.5 g/dL (6.4-8.2)
[2020-07-21 15:20] LABS: TROPONIN-I < 0.017 ng/mL (0.000-0.060)
--- NOTE | 2020-07-21 19:00 | NUR ---
REPORT RECIEVED FROM HAYES MAGALLON
[2020-07-21 20:12] LABS: BILIRUBIN NEGATIVE (NEGATIVE); KETONE NEGATIVE (NEGATIVE); NITRITE POSITIVE (NEGATIVE); UROBILINOGEN NORMAL mg/dL (< 2)
[2020-07-21 20:13] LABS: WHITE CELLS - URINE 0-5 HPF (0-4)
[2020-07-21 20:14] LABS: BACTERIA MANY HPF (NONE SEEN); EPITHELIAL CELLS OCC /hpf (0-5)
[2020-07-21 20:40] LABS: CKMB 3.4 U/L (0.0-3.6); CREATINE KINASE 127 UL (21-215)
[2020-07-21 21:00] VITALS: BP 124/59
[2020-07-21 21:30] LABS: UDS - AMPHET NEGATIVE QUAL (NEGATIVE); UDS - BARB NEGATIVE QUAL (NEGATIVE); UDS - BENZO NEGATIVE QUAL (NEGATIVE); UDS - COCAINE NEGATIVE QUAL (NEGATIVE); UDS - OPIATE NEGATIVE QUAL (NEGATIVE); UDS - PCP NEGATIVE QUAL (NEGATIVE); UDS - THC NEGATIVE QUAL (NEGATIVE)
--- NOTE | 2020-07-21 21:30 | NUR ---
INFUSION OF ROCEPHIN COMPLETE AT THIS TIME.
--- NOTE | 2020-07-21 22:58 | NUR ---
PT UP TO RESTROOM WITH ASSISTANCE.
[2020-07-21 23:00] VITALS: BP 116/73
[2020-07-22 00:30] VITALS: BP 105/52
[2020-07-22 03:00] VITALS: BP 115/61
[2020-07-22 03:30] LABS: BASOPHILS 0.3 % (0-2); EOSINOPHILS 2.8 % (0-7); HEMATOCRIT 34.2 % (36.0-48.0); LYMPHOCYTES 43.1 % (15-50); MCH 30.4 pg (26.0-34.0); MCHC 32.2 g/dL (31.0-37.0); MCV 94.5 fL (80.0-100.0); MEAN PLATELET VOLUME 9.1 fL (7.4-10.4); MONOCYTES 13.8 % (2-11); PLATELET COUNT 105 10x3/uL (130-400); RBC 3.62 10x6/uL (4.00-5.40); RDW 14.8 % (11.5-14.5); WBC 3.2 10x3/uL (4.8-10.8)
[2020-07-22 03:52] LABS: CALC OSMOLALITY 280 mosm/kg (275-300); CALCIUM 8.3 mg/dL (8.5-10.1); CARBON DIOXIDE 31.6 mmol/L (21.0-32.0); CHLORIDE - SERUM 107 mmol/L (98-107); CHOLESTEROL, TOTAL 113 mg/dL (0-200); CKMB 2.7 U/L (0.0-3.6); CREATINE KINASE 105 UL (21-215); CREATININE - SERUM 0.9 mg/dL (0.6-1.3); GLUCOSE 92 mg/dL (74-106); HDL CHOLESTEROL 38 mg/dL (32-96); LDL CHOLESTEROL 63 mg/dL (0-100); LDL-HDL RATIO 1.7 ratio (1.5-3.5); MAGNESIUM - SERUM 1.4 mg/dL (1.8-2.4); PHOSPHOROUS 2.7 mg/dL (2.5-4.9); POTASSIUM - SERUM 3.4 mmol/L (3.5-5.1); SODIUM 141 mmol/L (136-145); TRIGLYCERIDE 62 mg/dL (30-200); TROPONIN-I 0.023 ng/mL (0.000-0.060); UREA NITROGEN 12 mg/dL (7-18); eGFR NON AFRICAN AMERICAN 67 mL/min (90-120)
[2020-07-22 05:45] VITALS: BP 117/69
[2020-07-22 08:35] VITALS: BMI 14.5
[2020-07-22 09:18] LABS: CKMB 3.9 U/L (0.0-3.6); CREATINE KINASE 115 UL (21-215); TROPONIN-I < 0.017 ng/mL (0.000-0.060)
[2020-07-22 09:25] VITALS: BP 124/66
--- NOTE | 2020-07-22 09:30 | NUR ---
PER ASSEMBLER AND TESTER [employer]LECTRON[employer] RN, PIV WAS PULLED OUT BY PT. RESITED PIV.
--- NOTE | 2020-07-22 10:28 | NUR ---
LAC PIV INFLITRATED. RESITED.
[2020-07-22 12:00] VITALS: BP 150/57
[2020-07-22] MEDS ORDERED: ADVAIR 250-501 EAC1 INH (13:53)
[2020-07-22 14:00] VITALS: Ht 167.6 cm; Wt 40.9 kg
--- NOTE | 2020-07-22 14:40 | NUR ---
PATIENT UP TO SHOWER AT THIS TIME. IV INTACT. CALL LIGHT WITHN REACH.
--- NOTE | 2020-07-22 17:15 | NUR ---
PATIENT BACK FROM EGD. NO COMPLAINTS OR SIGNS OF DISTRESS. IV INACT. VS STABLE. CALL LIGHT WITHIN REACH.
--- NOTE | 2020-07-22 23:50 | NUR ---
PT C/O HER LEGS ITCHING AND NOT BEING ABLE TO GO TO SLEEP. NO RASH OR REDNESS TO HER LEGS. CALLED NURYS JOVEL APN AND RECEIVED A ONE TIME ORDER FOR BENADRYL. PT KEEPS STATING THAT SHE WANTS ME TO WAKE HER UP AT 6AM SO SHE CAN GET READY TO LEAVE TO HEAD HOME. LET HER KNOW WE DO KNOW HAVE DISCHARGE ORDERS FOR HER YET. VERBALIZED UNDERSTANDING. 0020- PT RESTING WITH EYES CLOSED. RESPIRATIONS EVEN AND UNLABORED. VSS. BED LOW AND CALL LIGHT IN REACH.
[2020-07-23] VITALS (7 sets, daily range): BP systolic 100–122; BP diastolic 48–68
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
[2020-07-23 07:06] LABS: ANION GAP 9.1 mmol/L (8-16); CALCIUM 8.7 mg/dL (8.5-10.1); CARBON DIOXIDE 29.9 mmol/L (21.0-32.0); MAGNESIUM - SERUM 1.5 mg/dL (1.8-2.4); PHOSPHOROUS 3.3 mg/dL (2.5-4.9)
[2020-07-23 07:09] LABS: HEMATOCRIT 33.7 % (36.0-48.0); HEMOGLOBIN 10.8 g/dL (12-16); MCH 30.4 pg (26.0-34.0); MCV 94.9 fL (80.0-100.0); MEAN PLATELET VOLUME 9.6 fL (7.4-10.4); PLATELET COUNT 104 10x3/uL (130-400); RBC 3.55 10x6/uL (4.00-5.40); RDW 14.7 % (11.5-14.5); WBC 2.7 10x3/uL (4.8-10.8)
[2020-07-23 11:47] LABS: LYMPHOCYTES 47 % (15-50); MONOCYTES 11 % (2-11); NEUTROPHILS 42 % (40-80); PLATELET ESTIMATE DECREASED
[2020-07-23 11:48] LABS: ANISOCYTOSIS OCC; HYPOCHROMASIA OCC
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
[2020-07-23] MEDS ORDERED: OMEPRAZOLE40 MG PO (16:49)
--- NOTE | 2020-07-23 16:59 | NUR ---
PATIENT LAYING IN BED. DENIES NEEDS AT THIS TIME. BED LOW POSITION, CALL LIGHT IN REACH. FREE FROM SIGNS OF DISTRESS. WILL CONTINUE TO MONITOR.
[2020-07-24] VITALS: BP 132/72
[2020-07-24 04:00] VITALS: BP 124/64
[2020-07-24 05:43] LABS: BASOPHILS 0.3 % (0-2); EOSINOPHILS 3.3 % (0-7); HEMATOCRIT 35.5 % (36.0-48.0); HEMOGLOBIN 11.1 g/dL (12-16); IMMATURE GRANULOCYTES 0.3 % (0-5); LYMPHOCYTES 43.1 % (15-50); MCH 29.7 pg (26.0-34.0); MCHC 31.3 g/dL (31.0-37.0); MCV 94.9 fL (80.0-100.0); MEAN PLATELET VOLUME 9.2 fL (7.4-10.4); MONOCYTES 9.5 % (2-11); NEUTROPHILS 43.5 % (40-80); PLATELET COUNT 118 10x3/uL (130-400); RBC 3.74 10x6/uL (4.00-5.40); RDW 15.1 % (11.5-14.5); WBC 3.1 10x3/uL (4.8-10.8)
[2020-07-24 05:59] LABS: ANION GAP 9.6 mmol/L (8-16); CALCIUM 8.8 mg/dL (8.5-10.1); CARBON DIOXIDE 29.6 mmol/L (21.0-32.0); PHOSPHOROUS 2.6 mg/dL (2.5-4.9); POTASSIUM - SERUM 3.2 mmol/L (3.5-5.1)
[2020-07-24 06:05] LABS: MAGNESIUM - SERUM 1.9 mg/dL (1.8-2.4)
[2020-07-24 09:03] VITALS: BP 114/57
--- NOTE | 2020-07-24 09:31 | NUR ---
PATIENT IN BED. NURSE AND STUDENT OFFERED TO CHANGE LINENS AND ASSIST WITH CLEANING UP. PATIENT REFUSED. IV CATH PULLED OUT. PATIENT REFUSED REINSERTION OF A NEW CATH.
--- NOTE | 2020-07-24 13:14 | MORECARE ---
CASE MANAGEMENT DISCHARGE SUMMARY PATIENT: ROBERTH MYERS BAIRON UNIT: [id number] ADM DATE: 07/21/20 AGE: 65 : 57 SEX: F ROOM/BED: D.220 AUTHOR: JORDAN POSADAS PHYSICIAN: REFERRING PHYSICIAN: LUCY YOUNG MD DATE OF SERVICE: 07/24/20 Discharge Plan Patient Name: ROBRETH MYERS [facility] [facility] 1955 Planned Disposition: Home or Self Care Anticipated Discharge Date: Discharge Date: Expected LOS: Initial Reviewer: [email or web address] Initial Review Date: 07/21/2020 Generated: 07/24/20 2:13 pm DCPIA - Discharge Planning Initial Assessment Updated by [id number]: Lynnette Olivares on 07/24/20 1:12 pm * Is the patient Alert and Oriented? Yes * PCP dr bairon forte * Pharmacy [facility] * Preadmission Environment Home Alone * ADLs Independent * Equipment Cane * Other Equipment service dog * List name and contact numbers for known caregivers / representatives who currently or will assist patient after discharge: colten ( brother) [phone] * Verbal permission to speak to the caregivers and representatives has been obtained from the patient. N/A * Community resources currently utilized None * Additional services required to return to the preadmission environment? No * Can the patient safely return to the preadmission environment? Yes * Has this patient been hospitalized within the prior 30 days at any hospital? No Coverage Notice Reviewer: [email or web address] - Lynnette Olivares Notice Issued Date-Time: 07/24/2020 13:00 Notice Type: IM Discharge Notice Notice Delivered To: Patient Relationship to Patient: High Tension Tester Name: Delivery Method: HAND - Hand Delivered Anny Days: Prior Verbal Notification: Recipient Understood Notice: Yes Recipient Signature: Yes Med Rec Note Co-signed by Attending: Coverage Notice Comment: imm served and explained, Patient Name: ROBERTH MYERS Page 28465 at 1314 All edits/amendments must be made on the electronic document DICTATION DATE: 07/24/20 1313 JUDICIAL ASSISTANT: LEONIDES 07/24/20 1313 RPT#: [id number] DC DATE: STATUS: ADM IN [facility] [address] [place] [address] END OF REPORT
--- NOTE | 2020-07-24 13:22 | MORECARE ---
CASE MANAGEMENT DISCHARGE SUMMARY PATIENT: ROBERTH MYERS BAIRON UNIT: [id number] ADM DATE: 07/21/20 AGE: 65 : 57 SEX: F ROOM/BED: D.6889 AUTHOR: CUAUHTEMOC,DOC PHYSICIAN: REFERRING PHYSICIAN: LUCY YOUNG MD DATE OF SERVICE: 07/24/20 Discharge Plan Patient Name: ROBERTH MYERS [facility] [facility] 1955 Planned Disposition: Home or Self Care Anticipated Discharge Date: Discharge Date: Expected LOS: Initial Reviewer: [id number] Initial Review Date: 07/21/2020 Generated: 07/24/20 2:21 pm Comments DCP- Discharge Planning Updated by [email or web address]: Lynnette Olivares on 07/24/20 12:[address] Patient Name: ROBERTH MYERS Admission Status: ER Accout number: [id number] Admission Date: 07-21-2020 : 1955 Admission Diagnosis:CHEST PAIN, UNSPECIFIED Attending: LUCY YOUNG Current LOS: 3 Anticipated DC Date: Planned Disposition: Home or Self Care Primary Insurance: [employer] CHOICE PPO MCR ADVANT Discharge Planning Comments: CM met with patient to complete initial dc planning assessment. CM educated patient on the CM role and verbal consent given by patient to complete assessment. Patient lives at home on [facility] [address] with her service dog. At discharge patient plans to return there and feels this is a safe discharge. She stated that Zoya from the police dept will be the one to take her home and bring her clothes. CM discussed availability of home health, rehab services, and medical equipment. She at first was agreeable to home health then I asked her to sign a JOLIE and she did not want it then. She was going to talk to her MD before she got it. She said that she has a CM with [employer] she can call. She has a cane that is in her room. She would not make eye contact with me and when she talked she didn't make sense at times. She said she felt safe and was ok to go home. [facility] served and explained and she signed this paper. Patient denied known discharge needs at this time. CM will continue to follow and will assist as needed with dc plans/needs. Vocational Training Instructor: Lynnette Olivares DCPIA - Discharge Planning Initial Assessment Updated by [email or web address]: Lynnette Olivares on 07/24/20 1:12 pm * Is the patient Alert and Oriented? Yes * PCP dr bairon forte * [facility]acy [facility] [address] * Preadmission Environment Home Alone * ADLs Independent * Equipment Cane * Other Equipment service dog * List name and contact numbers for known caregivers / representatives who currently or will assist patient after discharge: colten ( brother) [phone] * Verbal permission to speak to the caregivers and representatives has been obtained from the patient. N/A * Community resources currently utilized None * Additional services required to return to the preadmission environment? No * Can the patient safely return to the preadmission environment? Yes * Has this patient been hospitalized within the prior 30 days at any hospital? No Coverage Notice Reviewer: [id number] - Lynnette Olivares Notice Issued Date-Time: 07/24/2020 13:00 Notice Type: IM Discharge Notice Notice Delivered To: Patient Relationship to Patient: Collector Of Port Name: Delivery Method: HAND - Hand Delivered Anny Days: Prior Verbal Notification: Recipient Understood Notice: Yes Recipient Signature: Yes Med Rec Note Co-signed by Attending: Coverage Notice Comment: imm served and explained, Last DP export: 07/24/20 12:14 p Patient Name: ROBERTH MYERS Page [phone] at 1322 All edits/amendments must be made on the electronic document DICTATION DATE: 07/24/20 1321 LINEN MANAGER: LEONIDES 07/24/20 1321 RPT#: [id number] DC DATE: STATUS: ADM IN [facility] [address] [place] [address] END OF REPORT
--- NOTE | 2020-07-24 14:13 | NUR ---
NUTRITION F/U CHART REVIEWED, PT VISIT. PT STATES SHE DID NOT EAT BREAKFAST BECAUSE SHE WAS HAVING SOMEONE BRING "TAKE OUT". WILL CONTINUE TO PROVIDE DIET, HONOR FOOD PREFERENCES. RD FOLLOWING
--- NOTE | 2020-07-24 14:47 | MORECARE ---
CASE MANAGEMENT DISCHARGE SUMMARY PATIENT: ROBERTH MYERS BAIRON UNIT: [id number] ADM DATE: 07/21/20 AGE: 65 : 57 SEX: F ROOM/BED: D.2205 AUTHOR: CUAUHTEMOCDOC PHYSICIAN: REFERRING PHYSICIAN: LUCY YOUNG MD DATE OF SERVICE: 07/24/20 Discharge Plan Patient Name: ROBERTH MYERS [facility] [facility] 1955 Planned Disposition: Home or Self Care Anticipated Discharge Date: Discharge Date: Expected LOS: Initial Reviewer: [id number] Initial Review Date: 07/21/2020 Generated: 07/24/20 3:46 pm DCP- Discharge Planning Updated by [id number]: Lynnette Olivares on 07/24/20 1:[address] PATIENT STATES THAT HER RIDE IS COMING FROM [place] TO TAKE HER HOME DCP- Discharge Planning Updated by [id number]: Lynnette Olivares on 07/24/20 12:[address] Patient Name: ROBERTH MYERS Admission Status: ER Accout number: [id number] Admission Date: 07-21-2020 : 1955 Admission Diagnosis:CHEST PAIN, UNSPECIFIED Attending: LUCY YOUNG Current LOS: 3 Anticipated DC Date: Planned Disposition: Home or Self Care Primary Insurance: [employer] CHOICE PPO MCR ADVANT Discharge Planning Comments: CM met with patient to complete initial dc planning assessment. CM educated patient on the CM role and verbal consent given by patient to complete assessment. Patient lives at home on [address]. with her service dog. At discharge patient plans to return there and feels this is a safe discharge. She stated that Zoya from the police dept will be the one to take her home and bring her clothes. CM discussed availability of home health, rehab services, and medical equipment. She at first was agreeable to home health then I asked her to sign a JOLIE and she did not want it then. She was going to talk to her MD before she got it. She said that she has a CM with [employer] she can call. She has a cane that is in her room. She would not make eye contact with me and when she talked she didn't make sense at times. She said she felt safe and was ok to go home. IMM served and explained and she signed this paper. Patient denied known discharge needs at this time. CM will continue to follow and will assist as needed with dc plans/needs. Ticket Worker: Lynnette Olivares DCPIA - Discharge Planning Initial Assessment Updated by [id number]: Lynnette Olivares on 07/24/20 1:12 pm * Is the patient Alert and Oriented? Yes * PCP dr bairon forte * Pharmacy [facility] * Preadmission Environment Home Alone * ADLs Independent * Equipment Cane * Other Equipment service dog * List name and contact numbers for known caregivers / representatives who currently or will assist patient after discharge: colten ( brother) [phone] * Verbal permission to speak to the caregivers and representatives has been obtained from the patient. N/A * Community resources currently utilized None * Additional services required to return to the preadmission environment? No * Can the patient safely return to the preadmission environment? Yes * Has this patient been hospitalized within the prior 30 days at any hospital? No Coverage Notice Reviewer: [id number] - Lynnette Olivares Notice Issued Date-Time: 07/24/2020 13:00 Notice Type: IM Discharge Notice Notice Delivered To: Patient Relationship to Patient: Authorization Rep Name: Delivery Method: HAND - Hand Delivered Anny Days: Prior Verbal Notification: Recipient Understood Notice: Yes Recipient Signature: Yes Med Rec Note Co-signed by Attending: Coverage Notice Comment: imm served and explained, Last DP export: 07/24/20 12:22 p Patient Name: ROBERTH MYERS Page [phone] at 1447 All edits/amendments must be made on the electronic document DICTATION DATE: 07/24/20 1446 GRANITE FABRICATOR: LEONIDES 07/24/20 1446 RPT#: [id number] DC DATE: STATUS: ADM IN [facility] [address] [place] [address] END OF REPORT
--- NOTE | 2020-07-24 14:54 | MORECARE ---
CASE MANAGEMENT DISCHARGE SUMMARY PATIENT: ROBERTH MYERS UNIT: [id number] ADM DATE: 07/21/20 AGE: 65 : 57 SEX: F ROOM/BED: D.2203 AUTHOR: CUAUHTEMOC,DOC PHYSICIAN: REFERRING PHYSICIAN: LUCY YOUNG MD DATE OF SERVICE: 07/24/20 Discharge Plan Patient Name: ROBERTH MYERS Facility: [facility]:[place] : 1955 Planned Disposition: Home or Self Care Anticipated Discharge Date: Discharge Date: Expected LOS: Initial Reviewer: [id number] Initial Review Date: 07/21/2020 Generated: 07/24/20 3:53 pm Comments DCP- Discharge Planning Updated by [email or web address]: Lynnette Olivares on 07/24/20 1:[address] I CALLED THE POLICE DEPT TO SEE IF THERE WAS A DANICA OR STAR WORKING THERE THEY SAID THAT THEY DO NOT HAVE ONE AND THEY DO NOT TAKE PEOPLE HOME HER FRIEND WILL TAKE HER HOME DCP- Discharge Planning Updated by [email or web address]: Lynnette Olivares on 07/24/20 1:[address] PATIENT STATES THAT HER RIDE IS COMING FROM [place] TO TAKE HER HOME DCP- Discharge Planning Updated by [email or web address]: Lynnette Olivares on 07/24/20 12:[address] Patient Name: ROBERTH MYERS Admission Status: ER Accout number: [id number] Admission Date: 07-21-2020 : 1955 Admission Diagnosis:CHEST PAIN, UNSPECIFIED Attending: LUCY YOUNG Current LOS: 3 Anticipated DC Date: Planned Disposition: Home or Self Care Primary Insurance: [employer] CHOICE PPO MCR ADVANT Discharge Planning Comments: CM met with patient to complete initial dc planning assessment. CM educated patient on the CM role and verbal consent given by patient to complete assessment. Patient lives at home on [facility] [address] with her service dog. At discharge patient plans to return there and feels this is a safe discharge. She stated that Star from the police dept will be the one to take her home and bring her clothes. CM discussed availability of home health, rehab services, and medical equipment. She at first was agreeable to home health then I asked her to sign a JOLIE and she did not want it then. She was going to talk to her MD before she got it. She said that she has a CM with [employer] she can call. She has a cane that is in her room. She would not make eye contact with me and when she talked she didn't make sense at times. She said she felt safe and was ok to go home. IMM served and explained and she signed this paper. Patient denied known discharge needs at this time. CM will continue to follow and will assist as needed with dc plans/needs. Weight And Balance Control Agent: Lynnette Olivares DCPIA - Discharge Planning Initial Assessment Updated by [email or web address]: Lynnette Olivares on 07/24/20 1:12 pm * Is the patient Alert and Oriented? Yes * PCP dr bev forte * Pharmacy [facility] * Preadmission Environment Home Alone * ADLs Independent * Equipment Cane * Other Equipment service dog * List name and contact numbers for known caregivers / representatives who currently or will assist patient after discharge: colten ( brother) [phone] * Verbal permission to speak to the caregivers and representatives has been obtained from the patient. N/A * Community resources currently utilized None * Additional services required to return to the preadmission environment? No * Can the patient safely return to the preadmission environment? Yes * Has this patient been hospitalized within the prior 30 days at any hospital? No Coverage Notice Reviewer: [id number] - Lynnette Olivares Notice Issued Date-Time: 07/24/2020 13:00 Notice Type: IM Discharge Notice Notice Delivered To: Patient Relationship to Patient: Historical Archeologist Name: Delivery Method: HAND - Hand Delivered Anny Days: Prior Verbal Notification: Recipient Understood Notice: Yes Recipient Signature: Yes Med Rec Note Co-signed by Attending: Coverage Notice Comment: imm served and explained, Last DP export: 07/24/20 1:47 p Patient Name: ROBERTH MYERS Page [phone] at 1454 All edits/amendments must be made on the electronic document DICTATION DATE: 07/24/201452 LEATHER CURRIER: LEONIDES 07/24/201452 RPT#: [id number] DC DATE: STATUS: ADM IN [facility] [address] [place] [address] END OF REPORT
--- NOTE | 2020-07-24 18:59 | NUR ---
PATIENT DC PAPERS SIGNED AT THIS TIME. ESCORTED PATIENT TO ER FOR TRANSPORTATION. REFUSED WC. BROTHER NOT HERE AT THIS TIME. BLONDE LADY THAT SAID SHE WAS THE PATIENTS FRIEND AGREED TO TAKE THE PATIENT HOME.
--- NOTE | 2020-07-24 19:00 | NUR ---
WAS NOTIFIED THAT PATIENT STILL OUTSIDE BY NIGHT INTERNAL CONTROLS ANALYST. NOTIFIED HS AND CASPER LARA AT THIS TIME. PATIENT REFUSED TO COME BACK IN WITH INTERNAL CONTROLS ANALYST.
--- NOTE | 2020-07-24 19:15 | NUR ---
SLIVER FORMER STATED THAT WE CAN NOT MAKE PATIENT COME BACK IN, BC SHE HAS ALREADY BEEN DC'D AND HER FRIEND STATED SHE WOULD GIVE HER A RIDE.
--- NOTE | 2020-07-27 09:13 | MORECARE ---
CASE MANAGEMENT DISCHARGE SUMMARY PATIENT: ROBERTH MYERS BAIRON UNIT: [id number] ADM DATE: 07/21/20 AGE: 65 : 57 SEX: F ROOM/BED: D.2200 AUTHOR: CUAUHTEMOC,DOC PHYSICIAN: REFERRING PHYSICIAN: LUCY YOUNG MD DATE OF SERVICE: 07/27/20 Discharge Plan Patient Name: ROBERTH MYERS Facility: [facility]:[place] : 1955 Planned Disposition: Home or Self Care Anticipated Discharge Date: Discharge Date: 07/24/2020 Expected LOS: Initial Reviewer: [id number] Initial Review Date: 07/21/2020 Generated: 07/27/20 10:12 am Comments DCP- Discharge Planning Updated by [email or web address]: Lynnette Olivares on 07/24/20 1:[address] I CALLED THE POLICE DEPT TO SEE IF THERE WAS A DANICA OR STAR WORKING THERE THEY SAID THAT THEY DO NOT HAVE ONE AND THEY DO NOT TAKE PEOPLE HOME HER FRIEND WILL TAKE HER HOME DCP- Discharge Planning Updated by [email or web address]: Lynnette Olivares on 07/24/20 1:[address] PATIENT STATES THAT HER RIDE IS COMING FROM [place] TO TAKE HER HOME DCP- Discharge Planning Updated by [email or web address]: Lynnette Olivares on 07/24/20 12:[address] Patient Name: ROBERTH MYERS Admission Status: ER Accout number: [id number] Admission Date: 07-21-2020 : 1955 Admission Diagnosis:CHEST PAIN, UNSPECIFIED Attending: LUCY YOUNG Current LOS: 3 Anticipated DC Date: Planned Disposition: Home or Self Care Primary Insurance: [employer] CHO[employer] PPO MCR ADVANT Discharge Planning Comments: CM met with patient to complete initial dc planning assessment. CM educated patient on the CM role and verbal consent given by patient to complete assessment. Patient lives at home on [facility] [address] with her service dog. At discharge patient plans to return there and feels this is a safe discharge. She stated that Star from the police dept will be the one to take her home and bring her clothes. CM discussed availability of home health, rehab services, and medical equipment. She at first was agreeable to home health then I asked her to sign a JOLIE and she did not want it then. She was going to talk to her MD before she got it. She said that she has a CM with [employer] she can call. She has a cane that is in her room. She would not make eye contact with me and when she talked she didn't make sense at times. She said she felt safe and was ok to go home. IMM served and explained and she signed this paper. Patient denied known discharge needs at this time. CM will continue to follow and will assist as needed with dc plans/needs. Javascript Programmer: Lynnette Olivares DCPIA - Discharge Planning Initial Assessment Updated by [id number]: Lynnette Olivares on 07/24/20 1:12 pm * Is the patient Alert and Oriented? Yes * PCP dr bairon forte * Pharmacy [facility] [address] * Preadmission Environment Home Alone * ADLs Independent * Equipment Cane * Other Equipment service dog * List name and contact numbers for known caregivers / representatives who currently or will assist patient after discharge: colten ( brother) [phone] * Verbal permission to speak to the caregivers and representatives has been obtained from the patient. N/A * Community resources currently utilized None * Additional services required to return to the preadmission environment? No * Can the patient safely return to the preadmission environment? Yes * Has this patient been hospitalized within the prior 30 days at any hospital? No Coverage Notice Reviewer: [id number] - Lynnette Olivares Notice Issued Date-Time: 07/24/2020 13:00 Notice Type: IM Discharge Notice Notice Delivered To: Patient Relationship to Patient: Bag Machine Helper Name: Delivery Method: HAND - Hand Delivered Anny Days: Prior Verbal Notification: Recipient Understood Notice: Yes Recipient Signature: Yes Med Rec Note Co-signed by Attending: Coverage Notice Comment: imm served and explained, Last DP export: 07/24/20 1:54 p Patient Name: ROBERTH MYERS Page [id number] at 0913 All edits/amendments must be made on the electronic document DICTATION DATE: 07/27/20912 TRUCK DRIVER: LEONIDES 07/27/20912 RPT#: [id number] DC DATE:07/24/20 STATUS: DIS IN [facility] [address] [place] [address] END OF REPORT
[2020-07-27 16:09] LABS: CHLAMYDIA TRACHOMATIS, NAA Negative (Negative)
== END 2020-07-24 19:17 | disposition home or self-care (01) | DRG 392 ==
LOC: D.ER 14:10 → D.EDHOLD 20:09 → D.MS 20:09
PROVIDERS: Emergency Medicine; Internal Medicine Gastroenterology; ADMIT Family Medicine; ATTEND Family Medicine
PROC: 0DB98ZX Excision of Duodenum, Via Natural or Artificial Opening Endoscopic, Diagnostic (ICD-10-PCS; principal; 2020-07-22 16:30)
DX: K22.8 Other specified diseases of esophagus (principal); N39.0 Urinary tract infection, site not specified; B19.9 Unspecified viral hepatitis without hepatic coma; R07.9 Chest pain, unspecified; R93.3 Abnormal findings on diagnostic imaging of other parts of digestive tract; R91.1 Solitary pulmonary nodule; B37.3 Candidiasis of vulva and vagina; I10 Essential (primary) hypertension; K22.70 Barrett's esophagus without dysplasia; F41.8 Other specified anxiety disorders; K21.9 Gastro-esophageal reflux disease without esophagitis; M06.9 Rheumatoid arthritis, unspecified; J45.909 Unspecified asthma, uncomplicated; J44.9 Chronic obstructive pulmonary disease, unspecified; M19.90 Unspecified osteoarthritis, unspecified site; F31.9 Bipolar disorder, unspecified